=== PATIENT | female | born 1940 | race Caucasian/White ===

== ENCOUNTER 2016-09-16 10:01 | Emergency (ER) | payer MEDICARE ==
[~2016-09-16] VITALS: Ht 157.5 cm; Wt 104.0 kg
[~2016-09-16 10:01] MED LIST: CETI10 PO; COLA100C PO; GLUCTAB PO; LEVO.05 PO; LISI-357 PO; METO25 PO; POTA10IN2 PO; ZOLP1TAB32 PO
[2016-09-16 10:07] VITALS: BP 141/74; PULSE 68; RESP 16; TEMP 98.6; O2SAT 96
[2016-09-16 10:35] VITALS: O2SAT 97
[2016-09-16] MEDS ORDERED: OMEP20TA PO (10:41)
[2016-09-16] MEDS ORDERED: CELE1CAP8 PO (10:41)
[2016-09-16] MEDS ORDERED: OCUVCAP PO (10:41)
[2016-09-16] MEDS ORDERED: LEVO125T4 PO (10:41)
[2016-09-16] MEDS ORDERED: ATOR10TA15 PO (10:41)
[2016-09-16] MEDS ORDERED: LISI20TA PO (10:41)
[2016-09-16] MEDS ORDERED: STOO100C PO (10:41)
[2016-09-16] MEDS ORDERED: METF500T PO (10:41)
[2016-09-16] MEDS ORDERED: METO25TA3 PO (10:41)
[2016-09-16] MEDS ORDERED: SODIUM CHLOR 0.9% 1000 ML INJ 1,000 ML IV SCH (10:44)
[2016-09-16] MEDS ORDERED: SODIUM CHLORIDE 0.9% FLUSH 10 ML FLUSH IV FLUSH PRN (10:45)
[2016-09-16] MEDS ORDERED: ACETAMINOPHEN 325 MG TAB PO ONE (10:45)
--- NOTE | 2016-09-16 10:48 | PD ---
HPI Chief Complaint: Pain: Acute or Chronic Time Seen by Provider: 10:37 Travel History International Travel<30 days: No Contact w/Intl Traveler<30days: No Traveled to known affect area: No History of Present Illness HPI 76-year-old female with history of diabetes, hypertension, hyperlipidemia, here for evaluation of lower back and left flank pain. The patient reports having these symptoms for about 2 weeks. Pain is sharp, intermittent, worse with movements. Last week she had a couple episodes of nausea and vomiting. No diarrhea. No fevers or chills. No rash. She denies trauma. No paresthesias or motor deficits. She has had some urinary stress incontinence which she has had for years. No urinary retention or bowel retention or incontinence. States that she was seen at an urgent care facility yesterday where she was diagnosed with a UTI/kidney infection and was given a dose of Rocephin IM, however was advised to present to the emergency department for further evaluation. PFSH Past Medical History Arthritis: Yes (Knee) Autoimmune Disease: No Blood Disorders: No Anxiety: No Depression: No Heart Rhythm Problems: No Cancer: No Cardiovascular Problems: Yes High Cholesterol: Yes Chemotherapy: No Chest Pain: No Congestive Heart Failure: No Cirrhosis: No Diabetes: Yes Patient Takes Glucophage: Yes Diminished Hearing: No Endocrine: Yes Gastrointestinal Disorders: Yes GERD: Yes Glaucoma: No Genitourinary: No Hepatitis: No Hiatal Hernia: Yes Heparin Induced Thrombocytopen: No Hypertension: Yes Immune Disorder: No Musculoskeletal: Yes (LEFT KNEE REPLACEMENT) Neurologic: Yes (STATES BRAIN BLEED FROM FALL 2013) Psychiatric: No Reproductive: No Respiratory: No Myocardial Infarction: No Radiation Therapy: No Sickle Cell Disease: No Thyroid Disease: Yes Ulcer: No ?: Not Menopausal: Yes Past Surgical History Abdominal Surgery: Yes AICD: No Appendectomy: Yes Arteriovenous Shunt: No Cardiac Surgery: No Cholecystectomy: Yes Ear Surgery: No Endocrine Surgery: No Eye Surgery: No Genitourinary Surgery: No Gynecologic Surgery: Yes (hysterectomy 25 years ago) Hysterectomy: Yes Insulin Pump: No Joint Replacement: Yes (LEFT KNEE) Neurologic Surgery: No Oral Surgery: No Pacemaker: No Thoracic Surgery: No Social History Alcohol Use: No Tobacco Use: No Substance Use: No Allergies-Medications (Allergen,Severity, Reaction): Coded Allergies: Bee Sting (Verified Allergy, Severe, ANAPHYLAXIS, 09/16/16) Reported Meds & Prescriptions Reported Meds & Active Scripts Active Reported Stool Softener (Docusate Sodium) 100 Mg Cap 1 Cap PO DAILY Ocuvite Lutein (Multiple Vitamins W/ Minerals) 1 Cap Cap 1 Cap PO DAILY Omeprazole 20 Mg Tab 20 Mg PO DAILY Metformin (Metformin HCl) 500 Mg Tab 500 Mg PO BIDPC With meals Metoprolol Tartrate 25 Mg Tab 25 Mg PO DAILY Lisinopril-Hctz 20-12.5 Mg Tab 1 Tab PO DAILY Levothyroxine (Levothyroxine Sodium) 125 Mcg Tab 125 Mcg PO DAILY Celecoxib 200 Mg Cap 200 Mg PO BID Atorvastatin (Atorvastatin Calcium) 10 Mg Tab 10 Mg PO DAILY Review of Systems Except as stated in HPI: all other systems reviewed are Neg Physical Exam Narrative GENERAL: Well-developed, well-nourished, comfortable, no acute distress. SKIN: Warm and dry. No rash. HEAD: Atraumatic. Normocephalic. EYES: Pupils equal and round. No scleral icterus. No injection or drainage. ENT: Mucous membranes pink and moist. NECK: Trachea midline. No JVD. CARDIOVASCULAR: Regular rate and rhythm. Distal pulses brisk and equal bilaterally. RESPIRATORY: No accessory muscle use. Clear to auscultation. Breath sounds equal bilaterally. GASTROINTESTINAL: Abdomen soft, non-tender, nondistended. MUSCULOSKELETAL: No obvious deformities. No clubbing. No cyanosis. No edema. Mild midline upper lumbar spine tenderness without step-off. Mild left CVA tenderness. No right CVA tenderness. NEUROLOGICAL: Awake and alert. No obvious cranial nerve deficits. Motor grossly within normal limits. Normal speech. No saddle anesthesia. Great toe extension present bilaterally. Normal motor/sensation to bilateral upper and lower extremities. PSYCHIATRIC: Appropriate mood and affect; insight and judgment normal. Data Data Last Documented VS Vital Signs Date Time Temp Pulse Resp B/P Pulse Ox O2 Delivery O2 Flow Rate FiO2 09/16/16 10:35 97 09/16/16 10:34 72 18 09/16/16 10:07 98.6 141/74 Orders Urinalysis - C+S If Indicated (09/16/16 10:09) Complete Blood Count With Diff (09/16/16 10:44) Comprehensive Metabolic Panel (09/16/16 10:44) Lipase (09/16/16 10:44) Prothrombin Time / Inr (Pt) (09/16/16 10:44) Act Partial Throm Time (Ptt) (09/16/16 10:44) Ct Abd/Pel W Iv Contrast(Rout) (09/16/16 10:44) Iv Access Insert/Monitor (09/16/16 10:44) Ecg Monitoring (09/16/16 10:44) Oximetry (09/16/16 10:44) Sodium Chlor 0.9% 1000 Ml Inj (Ns 1000 M (09/16/16 10:44) Sodium Chloride 0.9% Flush (Ns Flush) (09/16/16 10:45) Cath For Specimen (09/16/16 10:44) Acetaminophen (Tylenol) (09/16/16 10:45) Ct Lumb Spine W/O Contrast (09/16/16 ) Urine Culture (09/16/16 10:59) Ceftriaxone Inj (Rocephin Inj) (09/16/16 11:45) Iohexol 350 Inj (Omnipaque 350 Inj) (09/16/16 12:34) Labs Laboratory Tests Test 09/16/16 09/16/16 10:52 10:59 White Blood Count 5.8 TH/MM3 Red Blood Count 4.98 MIL/MM3 Hemoglobin 14.0 GM/DL Hematocrit 42.3 % Mean Corpuscular Volume 85.1 FL Mean Corpuscular Hemoglobin 28.2 PG Mean Corpuscular Hemoglobin 33.2 % Concent Red Cell Distribution Width 12.5 % Platelet Count 231 TH/MM3 Mean Platelet Volume 7.9 FL Neutrophils (%) (Auto) 70.1 % Lymphocytes (%) (Auto) 26.0 % Monocytes (%) (Auto) 3.1 % Eosinophils (%) (Auto) 0.0 % Basophils (%) (Auto) 0.8 % Neutrophils # (Auto) 4.1 TH/MM3 Lymphocytes # (Auto) 1.5 TH/MM3 Monocytes # (Auto) 0.2 TH/MM3 Eosinophils # (Auto) 0.0 TH/MM3 Basophils # (Auto) 0.0 TH/MM3 CBC Comment DIFF FINAL Differential Comment Prothrombin Time 10.9 SEC Prothromb Time International 1.0 RATIO Ratio Activated Partial 26.8 SEC Thromboplast Time Sodium Level 141 MEQ/L Potassium Level 3.5 MEQ/L Chloride Level 103 MEQ/L Carbon Dioxide Level 30.1 MEQ/L Anion Gap 8 MEQ/L Blood Urea Nitrogen 9 MG/DL Creatinine 0.67 MG/DL Estimat Glomerular Filtration 85 ML/MIN Rate Random Glucose 133 MG/DL Calcium Level 9.6 MG/DL Total Bilirubin 0.5 MG/DL Aspartate Amino Transf 35 U/L (AST/SGOT) Alanine Aminotransferase 23 U/L (ALT/SGPT) Alkaline Phosphatase 67 U/L Total Protein 7.1 GM/DL Albumin 3.7 GM/DL Lipase 102 U/L Urine Collection Type CLEAN CATCH Urine Color YELLOW Urine Turbidity SLIGHTY CLOUDY Urine pH 5.5 Urine Specific [place] 1.015 Urine Protein NEG mg/dL Urine Glucose (UA) NEG mg/dL Urine Ketones NEG mg/dL Urine Occult Blood NEG Urine Nitrite NEG Urine Bilirubin NEG Urine Leukocyte Esterase SMALL Urine RBC 0-3 /hpf Urine WBC 25-49 /hpf Urine WBC Clumps MOD Microscopic Urinalysis Comment CULTURE INDICATED MDM Medical Decision Making Medical Screen Exam Complete: Yes Emergency Medical Condition: Yes Differential Diagnosis Pyelonephritis, nephrolithiasis, ureterolithiasis, UTI, musculoskeletal pain, vertebral fracture, dissection, AAA Narrative Course Vital signs show heart rate 68, blood pressure 141/74, pulse ox 96% on room air , oral temp of 98.6F. CBC is unremarkable. CMP is unremarkable. Lipase is 102. UA shows small leukocyte esterase, 25-49 wbc's, moderate WBC clumps. Patient was given a dose of IV Rocephin. CT abdomen pelvis: CONCLUSION: 1. Linear atelectatic changes or scarring in the right lower lobe and left lingula. 2. Stable, 3.4 cm probable myolipoma in the left adrenal gland. 3. Granulomatous type calcifications in the spleen with a benign-appearing 2 cm cyst in the upper pole of the same. 4. Patient is status post cholecystectomy and hysterectomy. 5. Bilateral, 2.5 cm inguinal hernias which only contains fat. 6. Otherwise, no acute intraperitoneal or pelvic process to explain current clinical symptoms. CT lumbar spine: CONCLUSION: No acute bony process in the lumbar spine Patient and the patient's were made aware of all findings. She is resting comfortably. She was given a copy of her CT abdomen and pelvis report. She is stable for discharge home with oral antibiotics and outpatient follow- up with her primary care physician this week. She was informed on when to return to the emergency department. She verbalizes understanding and agreement with plan. Diagnosis Primary Impression: Pyelonephritis Referrals: Primary Care Physician 3 days Additional Instructions: Follow-up with your primary care physician this week. Return to the emergency department for worsening symptoms or any other concerns. Scripts Tramadol 50 Mg Tab50 Mg PO Q6H PRN (PAIN) #12 TAB Ref 0 Prov:Juan Willson MD 09/16/16 Ciprofloxacin (Cipro)500 Mg [id number] Mg PO BID 7 Days Ref 0 Prov:Juan Willson MD 09/16/16 Disposition: 01 DISCHARGE HOME Condition: Stable Juan Willson MD Sep 16, 2016 10:48
[2016-09-16 11:08] LABS: AUTOMATED NEUTROPHIL # 4.1 TH/MM3 (1.8-7.7); BASOPHIL % 0.8 % (0.0-2.0); HEMATOCRIT 42.3 % (35.0-46.0); HEMO FLAGS DIFF FINAL; LYMPHOCYTE # 1.5 TH/MM3 (1.0-4.8); MEAN CELL VOLUME 85.1 FL (80.0-100.0); MEAN CORPUSCULAR HEMOGLOBIN 28.2 PG (27.0-34.0); MEAN CORPUSCULAR HGB CONC 33.2 % (32.0-36.0); MONO % 3.1 % (0.0-8.0); NEUT % 70.1 % (16.0-70.0); PLATELET COUNT 231 TH/MM3 (150-450); RED BLOOD COUNT 4.98 MIL/MM3 (4.00-5.30); RED CELL DISTRIBUTION WIDTH 12.5 % (11.6-17.2); WHITE BLOOD COUNT 5.8 TH/MM3 (4.0-11.0)
[2016-09-16 11:08] LABS: BLOOD, URINE NEG (NEG); GLUCOSE,URINE NEG (NEG); KETONE, URINE NEG (NEG); NITRITE,URINE NEG (NEG); PH, URINE 5.5 (5.0-8.5)
[2016-09-16 11:12] LABS: METHOD OF COLLECTION CLEAN CATCH; URINE COLOR YELLOW (YELLW/STRAW)
[2016-09-16 11:13] LABS: COMMENT (UR) CULTURE INDICATED; CULTURE IF INDICATED CULTURE INDICATED; RBC, URINE 0-3 /hpf (0-3)
[2016-09-16 11:21] LABS: APTT (PATIENT) 26.8 SEC (24.3-30.1); PROTHROMBIN TIME - PATIENT 10.9 SEC (9.8-11.6)
[2016-09-16] MEDS ORDERED: cefTRIAXone INJ 1,000 MG in SODIUM CHLORIDE 0.9% INJ 100 ML IV ONE (11:45)
[2016-09-16 11:57] LABS: ALT (GPT) 23 U/L (10-53); ANION GAP 8 MEQ/L (5-15); AST (GOT) 35 U/L (15-37); BICARBONATE 30.1 MEQ/L (21.0-32.0); BLOOD UREA NITROGEN 9 MG/DL (7-18); CHLORIDE 103 MEQ/L (98-107); GLOMERULAR FILTRATION RATE 85 ML/MIN (>89); POTASSIUM 3.5 MEQ/L (3.5-5.1); SODIUM (NA) 141 MEQ/L (136-145)
[2016-09-16 11:59] LABS: ALKALINE PHOSPHATASE 67 U/L (45-117); TOTAL BILIRUBIN ADULT 0.5 MG/DL (0.2-1.0)
[2016-09-16] MEDS ORDERED: IOHEXOL 350 MG/ML 10 ML VIAL (for RAD DIAG) IV ONE (12:34)
--- NOTE | 2016-09-16 13:01 | RADHPO ---
EXAM DATE/TIME: 09/16/2016 12:08 [facility] COMPARISON: No previous studies available for comparison. INDICATIONS : Low back pain. RADIATION DOSE: ; Reconstructed from previous dataset MEDICAL HISTORY : Diabetes mellitus type 2. Hernia, hiatal. Hypertension. SURGICAL HISTORY : Appendectomy. Cholecystectomy.Hysterectomy. ENCOUNTER: Initial ACUITY: 2 weeks PAIN SCALE: 8/10 LOCATION: Lumbar spine. TECHNIQUE: Volumetric scanning of the lumbar spine was performed. Multiplanar reconstructions in the sagittal, coronal and oblique axial planes were performed. Using automated exposure control and adjustment of the mA and/or kV according to patient size, radiation dose was kept as low as reasonably achievable t o obtain optimal diagnostic quality images. FINDINGS: The lumbar spine alignment is satisfactory. There is no evidence of fracture or destructive change. N o bony canal or foraminal stenosis is identified. There is mild degenerative change present with disc space narrowing most conspicuous at L5-S1. Broad mild undulating dorsal disc protrusions are identif ied most significantly at L1-2, L3-4 and L4-5 levels. There is no evidence of paraspinal hematoma. 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 CONCLUSION: No acute bony process in the lumbar spine Wesley Tobin MD on September 16, 2016 at 12:52 Board Certified Radiologist. This report was verified electronically.
--- NOTE | 2016-09-16 13:03 | RADHPO ---
EXAM DATE/TIME: 09/16/2016 12:08 [facility] COMPARISON: CT ABDOMEN & PELVIS W CONTRAST, August 27, 2013, 22:38. INDICATIONS : Left flank and low back pain. IV CONTRAST: 80 cc Omnipaque 350 (iohexol) IV ORAL CONTRAST: No oral contrast ingested. RADIATION DOSE: 22.20 CTDIvol (mGy) MEDICAL HISTORY : Diabetes mellitus type 2. Gastroesophageal reflux disease. Hernia, hiatal.Hypertension. SURGICAL HISTORY : Appendectomy. Cholecystectomy.Hysterectomy. ENCOUNTER: Initial ACUITY: 2 weeks PAIN SCALE: 4/10 LOCATION: Left flank TECHNIQUE: Volumetric scanning of the abdomen and pelvis was performed. Using automated exposure control and ad justment of the mA and/or kV according to patient size, radiation dose was kept as low as reasonably achievable to obtain optimal diagnostic quality images. FINDINGS: LOWER LUNGS: Linear atelectatic changes/scarring in the superior segment of the right lower lobe and left lingula LIVER: Homogeneous density without lesion. There is no dilation of the biliary tree. Patient is status post cholecystectomy. SPLEEN: Punctate granulomatous type calcifications. 2 cm benign-appearing cyst in the upper pole of the spl een. PANCREAS: Atrophic changes with fatty replacement. KIDNEYS: Normal in size and shape. There is no mass, stone or hydronephrosis. Bilateral renal cortical cysts ADRENAL GLANDS: Stable, 3.4 cm fatty lesion in the left adrenal is characteristic of a myelolipoma. VASCULAR: There is no aortic aneurysm. BOWEL/MESENTERY: The stomach, small bowel, and colon demonstrate no acute abnormality. There is no free intraperitone al air or fluid. ABDOMINAL WALL: Within normal limits. RETROPERITONEUM: There is no lymphadenopathy. BLADDER: No wall thickening or mass. REPRODUCTIVE: Patient is status post hysterectomy. INGUINAL: Bilateral, 2.5 cm inguinal hernias which only contain fat. MUSCULOSKELETAL: Within normal limits for patient age. CONCLUSION: 1. Linear atelectatic changes or scarring in the right lower lobe and left lingula. 2. Stable, 3.4 cm probable myolipoma in the left adrenal gland. 3. Granulomatous type calcifications in the spleen with a benign-appearing 2 cm cyst in the upper yaniv e of the same. 4. Patient is status post cholecystectomy and hysterectomy. 5. Bilateral, 2.5 cm inguinal hernias which only contains fat. 6. Otherwise, no acute intraperitoneal or pelvic process to explain current clinical symptoms. Pavan Garza MD on September 16, 2016 at 12:45 Board Certified Radiologist. This report was verified electronically.
[2016-09-16] MEDS ORDERED: CIPR-9 PO (13:21)
[2016-09-16] MEDS ORDERED: TRAM50TA PO (13:21)
[2016-09-16 14:15] VITALS: BP 135/70
== END 2016-09-16 14:30 | disposition home or self-care (01) ==
LOC: PHED 10:01
DX: N12 Tubulo-interstitial nephritis, not specified as acute or chronic (principal); I10 Essential (primary) hypertension; E78.00 Pure hypercholesterolemia, unspecified; E11.9 Type 2 diabetes mellitus without complications; Z79.4 Long term (current) use of insulin; Z96.652 Presence of left artificial knee joint
CPT/HCPCS: 72131; 74177; 80053; 81001; 83690; 85025; 85610; 85730; 87086; 96365; 96366; 99284; J0696; J7030; P9612; Q9967

== ENCOUNTER 2016-12-23 17:50 | Observation (INO) | payer MEDICARE ==
[~2016-12-23] VITALS: Ht 172.7 cm; Wt 104.8 kg
[~2016-12-23 17:50] MED LIST changes: +ATOR10TA15 PO; +CELE1CAP8 PO; -CETI10 PO; +CIPR-9 PO; -COLA100C PO; -GLUCTAB PO; -LEVO.05 PO; +LEVO125T4 PO; -LISI-357 PO; +LISI20TA PO; +METF500T PO; -METO25 PO; +METO25TA3 PO; +OCUVCAP PO; +OMEP20TA PO; -POTA10IN2 PO; +STOO100C PO; +TRAM50TA PO; -ZOLP1TAB32 PO
[2016-12-23 18:11] VITALS: BP 163/67; PULSE 75; RESP 16; TEMP 98.5; O2SAT 97
--- NOTE | 2016-12-23 18:19 | PD ---
HPI Chief Complaint: Musculoskeletal Complaint Time Seen by Provider: 18:13 Travel History International Travel<30 days: No Contact w/Intl Traveler<30days: No Traveled to known affect area: No History of Present Illness HPI 76-year-old female presents to the emergency room for evaluation of left elbow, left wrist, left ankle, and left knee pain after falling just prior to arrival. Patient was stepping into her CV when her leg gave out and she fell to the left. She denies hitting her loss of consciousness. States her son and neighbor helped her up and into her walker before helping her into her recliner. Another nurse neighbor evaluated her wound and told her she would probably need stitches so she needs to have it evaluated. She called 911 and the ambulance brought her to the hospital. Most of her pain is in her left lateral ankle. It is 7/10, constant. She has not walked on it since injuring it. She has not taken anything for pain. Denies paresthesias. Left wrist pain is localized to the radial side without radiation. Last tetanus was less than 5 years ago. PFSH Past Medical History Arthritis: Yes (Knee) Autoimmune Disease: No Blood Disorders: No Anxiety: No Depression: No Heart Rhythm Problems: No Cancer: No Cardiovascular Problems: Yes High Cholesterol: Yes Chemotherapy: No Chest Pain: No Congestive Heart Failure: No Cirrhosis: No Diabetes: Yes Diminished Hearing: No Endocrine: Yes Gastrointestinal Disorders: Yes GERD: Yes Glaucoma: No Genitourinary: No Hepatitis: No Hiatal Hernia: Yes Heparin Induced Thrombocytopen: No Hypertension: Yes Immune Disorder: No Musculoskeletal: Yes (LEFT KNEE REPLACEMENT) Neurologic: Yes (STATES BRAIN BLEED FROM FALL 2013) Psychiatric: No Reproductive: No Respiratory: No Myocardial Infarction: No Radiation Therapy: No Sickle Cell Disease: No Thyroid Disease: Yes Ulcer: No ?: Not Menopausal: Yes Past Surgical History Abdominal Surgery: Yes AICD: No Appendectomy: Yes Arteriovenous Shunt: No Cardiac Surgery: No Cholecystectomy: Yes Ear Surgery: No Endocrine Surgery: No Eye Surgery: No Genitourinary Surgery: No Gynecologic Surgery: Yes (hysterectomy 25 years ago) Hysterectomy: Yes Insulin Pump: No Joint Replacement: Yes (LEFT KNEE) Neurologic Surgery: No Oral Surgery: No Pacemaker: No Thoracic Surgery: No Social History Alcohol Use: No Tobacco Use: No Substance Use: No Allergies-Medications (Allergen,Severity, Reaction): Coded Allergies: Bee Sting (Verified Allergy, Severe, ANAPHYLAXIS, 12/23/16) Reported Meds & Prescriptions Reported Meds & Active Scripts Active Reported Stool Softener (Docusate Sodium) 100 Mg Cap 1 Cap PO DAILY Ocuvite Lutein (Multiple Vitamins W/ Minerals) 1 Cap Cap 1 Cap PO DAILY Omeprazole 20 Mg Tab 20 Mg PO DAILY Metformin (Metformin HCl) 500 Mg Tab 500 Mg PO BIDPC With meals Metoprolol Tartrate 25 Mg Tab 25 Mg PO DAILY Lisinopril-Hctz 20-12.5 Mg Tab 1 Tab PO DAILY Levothyroxine (Levothyroxine Sodium) 125 Mcg Tab 125 Mcg PO DAILY Celecoxib 200 Mg Cap 200 Mg PO BID Atorvastatin (Atorvastatin Calcium) 10 Mg Tab 10 Mg PO DAILY Review of Systems Except as stated in HPI: all other systems reviewed are Neg Physical Exam Narrative GENERAL: Well-developed, well-nourished female in no acute distress. Afebrile. SKIN: Warm and dry. Forcing meter diameter skin tear in the left lateral elbow. There is a 1.5 cm laceration to the left elbow. HEAD: Atraumatic. Normocephalic. No sosa sign or raccoon eyes. EYES: PERRL, EOMI, no discharge or injection. No scleral icterus. NECK: Trachea midline. No JVD. No midline tenderness. Full range of motion. CARDIOVASCULAR: Regular rate and rhythm. No murmur appreciated. RESPIRATORY: No accessory muscle use. Clear to auscultation. Breath sounds equal bilaterally. No crackles, rales, wheezes, or rhonchi. BACK: No CVA tenderness. No rash. No point tenderness on palpation of the spine. EXTREMITY: Left ankle is tender to palpation especially over the lateral malleolus. No significant edema. No erythema or ecchymosis. 2+ dorsalis pedis pulse. Full range of motion of the knee and foot. Limited range of motion of the ankle secondary to pain. Full range of motion in all joints. Left wrist is tender to palpation over the dorsal, radial side. 2+ radial pulse. Full range motion of the hand and elbow. Limited range of motion of the wrist secondary to pain. No significant edema. Data Data Last Documented VS Vital Signs Date Time Temp Pulse Resp B/P Pulse Ox O2 Delivery O2 Flow Rate FiO2 12/23/16 18:11 98.5 75 16 163/67 97 Orders Wrist, Complete (Kuc1nfu) (12/23/16 ) Ankle, Complete (Byn2hoc) (12/23/16 ) Tibia/Fibula (Ap/Lat) (12/23/16 ) Forearm (2vws) (12/23/16 ) Lidocai-Epi 1%-1:100,000 Inj (Xylocaine- (12/23/16 18:26) Wound Care (12/23/16 18:40) Splint Or Brace Apply/Monitor (12/23/16 20:08) Acetamin-Hydrocod 325-5 Mg ([place] 5-325 (12/23/16 20:15) Cephalexin (Keflex) (12/23/16 20:15) Fiberglass Short Leg Splint Ad (12/23/16 ) Fiberglass Sugartong Sp Ad Sl (12/23/16 ) Place In Observation (12/23/16 ) Vital Signs (Adult) Q4H (12/23/16 21:43) Activity Oob With Assistance (12/23/16 21:43) Slubber Tender / Telemetry .CONTINUOUS (12/23/16 21:43) Diet Heart Healthy (12/24/16 Breakfast) Sodium Chloride 0.9% Flush (Ns Flush) (12/23/16 21:45) Sodium Chloride 0.9% Flush (Ns Flush) (12/24/16 09:00) Basic Metabolic Panel (Bmp) (12/24/16 06:00) Complete Blood Count With Diff (12/24/16 06:00) Pt Request For Service (12/23/16 21:43) Case Management Consult (12/23/16 21:43) Naloxone Inj (Narcan Inj) (12/23/16 21:45) Acetamin-Hydrocod 325-5 Mg ([place] 5-325 (12/23/16 21:45) Consult Orthopedic (12/23/16 ) Admit Order (Ed Use Only) (12/23/16 21:43) MDM Medical Decision Making Medical Screen Exam Complete: Yes Emergency Medical Condition: Yes Medical Record Reviewed: Yes Differential Diagnosis Fracture, skin tear, laceration, abrasion, contusion, strain, sprain Narrative Course 76-year-old female presents to the emergency room for evaluation of possible left ankle pain, left elbow pain, and left wrist pain after falling earlier today. Patient denies hitting her head or loss of consciousness. Her worst pain is in her ankle. Left lower extremity is neurovascularly intact with 2+ dorsalis pedis pulse. There is extreme tenderness to palpation of the left lateral ankle. Left upper extremity is neurovascularly intact with 2+ radial pulse. There is a 2 cm laceration over the elbow with swelling of the elbow. There is a large skin tear adjacent to the laceration. Skin tear was approximated. Laceration was repaired, see procedure note for details. Patient was given Keflex for the skin tear and deep elbow laceration. X-rays of the left wrist, elbow, and knee are negative. X-ray of the ankle shows a nondisplaced comminuted fracture of the distal fibula. I spoke to my attending physician, Dr. Willson, who agrees this is nonsurgical. Patient was placed in a Taylor splint. She lives alone and is supposed to remain non-weight bearing. Given her home situation, she has not safe for discharge. Patient needs to be admitted for physical therapy consult and possible outpatient rehabilitation. Procedures Procedure Narrative LACERATION LOCATION: Left elbow over the olecranon process LENGTH: 2 cm NUMBER OF STITCHES/BOBBY: 4 simple interrupted REPAIR: The area of the laceration was prepped with Betadine and sterilely draped. The laceration was infiltrated with 1% lidocaine with epinephrine. The wound was copiously irrigated and explored without evidence of foreign body , tendon injury or neurovascular injury. The wound was closed using 4-0 Prolene. This was a single layer repair. A sterile dressing was applied. The patient was advised to keep the dressing clean and dry. Patient tolerated the procedure well. Physician Communication Physician Communication I spoke to Dr. Sutton agrees to admit this patient to her service. Diagnosis Primary Impression: Closed left fibular fracture Qualified Code: S82.822A - Closed torus fracture of distal end of left fibula , initial encounter Additional Impressions: Laceration of left elbow Qualified Code: S51.012A - Laceration of left elbow, initial encounter Skin tear of elbow without complication Qualified Code: S51.012A - Skin tear of elbow without complication, left, initial encounter Patient Instructions: General Instructions Condition: Stable Michelle Oseguera Dec 23, 2016 18:19
[2016-12-23] MEDS ORDERED: LIDOCAINE 1%/EPINEPHrine 1:100,000 SOLN 30 ML VIAL ONE (18:26)
--- NOTE | 2016-12-23 19:30 | RADRPT ---
EXAM DATE/TIME: 12/23/2016 18:21 [facility] COMPARISON: No previous studies available for comparison. INDICATIONS : Patient said she slipped and fell on Tuesday.. Patient complains of pain. MEDICAL HISTORY : Diabetes mellitus type 2. Gastroesophageal reflux disease. Hernia, hiatal. Hypertension. SURGICAL HISTORY : Appendectomy. Cholecystectomy. Hysterectomy. ENCOUNTER: Initial ACUITY: 1 day PAIN SCORE: 4/10 LOCATION: Left Wrist. FINDINGS: AP, lateral and oblique views of the left wrist were obtained and demonstrate osteoarthritic change g reatest involving the first metacarpal carpal joint and trapezium scaphoid joint. There is narrowing and sclerosis of the radiocarpal joint and there is chronic appearing deformity of the scaphoid. The distal radius and ulna are intact. There is mild soft tissue prominence. There is mild osteopenia. CONCLUSION: 1. No acute fracture or malalignment. 2. Osteopenia and moderate to severe osteoarthritic change. Forrest Young MD on December 23, 2016 at 19:26 Board Certified Radiologist. This report was verified electronically.
--- NOTE | 2016-12-23 19:31 | RADRPT ---
EXAM DATE/TIME: 12/23/2016 18:21 [facility] COMPARISON: WRIST LEFT COMPLETE ([id number]), December 23, 2016, 18:21. INDICATIONS : Patient said she slipped and fell on Tuesday. MEDICAL HISTORY : Diabetes mellitus type 2. Gastroesophageal reflux disease. Hernia, hiatal.Hypertension. SURGICAL HISTORY : Appendectomy. Cholecystectomy.Hysterectomy. ENCOUNTER: Initial ACUITY: 2 days PAIN SCORE: 4/10 LOCATION: Left Forearm FINDINGS: Two view examination of the left forearm demonstrates no evidence of fracture or dislocation. Bony m ineralization is normal. There is apparent soft tissue swelling over the proximal forearm with appare nt overlying bandages. Degenerative changes are again noted in left wrist. CONCLUSION: 1. Soft tissue swelling with no acute fracture or malalignment. Forrest Young MD on December 23, 2016 at 19:28 Board Certified Radiologist. This report was verified electronically.
--- NOTE | 2016-12-23 19:33 | RADRPT ---
EXAM DATE/TIME: 12/23/2016 18:42 [facility] COMPARISON: No previous studies available for comparison. INDICATIONS : Left ankle pain. Patient said she slipped and fell on Tuesday. MEDICAL HISTORY : Diabetes mellitus type 2. Gastroesophageal reflux disease. Hernia, hiatal.Hypertension. SURGICAL HISTORY : Appendectomy. Cholecystectomy.Hysterectomy. ENCOUNTER: Initial ACUITY: 2 days PAIN SCORE: 7/10 LOCATION: Left Ankle FINDINGS: AP, lateral and oblique views of left ankle were obtained and demonstrate mildly comminuted nondispla kelin oblique fracture involving the distal fibula beginning approximately 4 cm above the ankle mortise . There is mild osteopenia and overlying soft tissue swelling. The ankle mortise is intact with mild degenerative change. Small spur off the inferior calcaneus. CONCLUSION: 1. Mildly comminuted nondisplaced fracture of the distal fibula. 2. Mild degenerative change and osteopenia. Forrest Young MD on December 23, 2016 at 19:29 Board Certified Radiologist. This report was verified electronically.
--- NOTE | 2016-12-23 19:34 | RADRPT ---
EXAM DATE/TIME: 12/23/2016 18:43 [facility] COMPARISON: ANKLE LEFT COMPLETE ([id number]), December 23, 2016, 18:42. INDICATIONS : Patient said she slipped and fell on Tuesday. MEDICAL HISTORY : Diabetes mellitus type 2. Gastroesophageal reflux disease. Hernia, hiatal.Hypertension. SURGICAL HISTORY : Appendectomy. Cholecystectomy.Hysterectomy. ENCOUNTER: Initial ACUITY: 2 days PAIN SCORE: 6/10 LOCATION: Left Ankle FINDINGS: Two view examination of the left tibia and demonstrates the nondisplaced distal fibular fracture. No additional fracture or dislocation is identified. There is mild osteopenia. The soft tissue structure s are intact. The patient is status post left knee arthroplasty. The arthroplasty components appear i ntact. Soft tissue swelling is again noted over the distal leg. CONCLUSION: 1. No additional fractures identified. 2. The distal fibular fracture is again visualized. Forrest Young MD on December 23, 2016 at 19:30 Board Certified Radiologist. This report was verified electronically.
[2016-12-23] MEDS ORDERED: CEPHALEXIN MONOHYDRATE 500 MG CAP PO ONE (20:15)
[2016-12-23] MEDS ORDERED: ACETAMINOPHEN/HYDROcodone 325 MG/5 MG TAB PO ONE (20:15)
[2016-12-23] MEDS ORDERED: SODIUM CHLORIDE 0.9% FLUSH 10 ML FLUSH IV FLUSH PRN (21:45)
[2016-12-23] MEDS ORDERED: NALOXONE HCL 0.4 MG/ML AMP IV PRN (21:45)
[2016-12-23 22:06] VITALS: BP 133/65; PULSE 89; RESP 18; O2SAT 95
[2016-12-23 22:54] VITALS: BP 138/77; PULSE 84; RESP 18; TEMP 97.4; O2SAT 95
[2016-12-23] MEDS: ACETAMINOPHEN/HYDROcodone 325 MG/5 MG TAB PO PRN (23:33)
[2016-12-24 04:00] VITALS: BP 131/80; PULSE 77; RESP 18; TEMP 97.4; O2SAT 95
[2016-12-24 06:01] LABS: AUTOMATED NEUTROPHIL # 4.9 TH/MM3 (1.8-7.7); BASOPHIL % 0.7 % (0.0-2.0); EOSINOPHIL % 0.4 % (0.0-4.0); HEMATOCRIT 38.5 % (35.0-46.0); HEMO FLAGS DIFF FINAL; LYMPH % 19.3 % (9.0-44.0); LYMPHOCYTE # 1.3 TH/MM3 (1.0-4.8); MEAN CELL VOLUME 86.7 FL (80.0-100.0); MEAN CORPUSCULAR HEMOGLOBIN 29.2 PG (27.0-34.0); MEAN CORPUSCULAR HGB CONC 33.7 % (32.0-36.0); MONO % 5.4 % (0.0-8.0); NEUT % 74.2 % (16.0-70.0); PLATELET COUNT 204 TH/MM3 (150-450); RED BLOOD COUNT 4.44 MIL/MM3 (4.00-5.30); RED CELL DISTRIBUTION WIDTH 12.8 % (11.6-17.2); WHITE BLOOD COUNT 6.6 TH/MM3 (4.0-11.0)
[2016-12-24 06:10] LABS: POTASSIUM 3.5 MEQ/L (3.5-5.1)
[2016-12-24 06:13] LABS: BICARBONATE 32.3 MEQ/L (21.0-32.0)
[2016-12-24] MEDS: ACETAMINOPHEN/HYDROcodone 325 MG/5 MG TAB PO PRN (06:25)
[2016-12-24] MEDS ORDERED: DEXTROSE 50% IN WATER 50 ML VIAL(D50) IV PRN (07:45)
[2016-12-24] MEDS ORDERED: GLUCAGON 1 MG/ML VIAL OTHER PRN (07:45)
[2016-12-24] MEDS: SODIUM CHLORIDE 0.9% FLUSH 10 ML FLUSH IV FLUSH SCH ×2 (09:00→20:31)
[2016-12-24 09:46] VITALS: BP 115/69; PULSE 76; RESP 15; TEMP 98.7; O2SAT 95
--- NOTE | 2016-12-24 10:10 | HHI.HP ---
HPI Service [facility] Primary Care Physician Davey Chavez MD Admission Diagnosis rehabilitation consult, left distal fibular fracture Diagnoses: Chief Complaint: Fall, ankle fracture. Travel History International Travel<30 Days: No Contact w/Intl Traveler <30 Da: No Traveled to Known Affected Are: No History of Present Illness Ms. Aguilar is a pleasant 76-year-old female with a history of hypertension, diabetes mellitus who presented to the emergency department on after she fell and sustained injury to her left elbow left wrist and left ankle. At around 5 PM on 12/23/2016 patient was trying to get into her SUV when she fell because her right leg gave away. She denies any chest pain, shortness of breath, dizziness or lightheadedness prior to her fall. She did not hit her head. Patient denies any cough, fever or chills. No abdominal pain. Denies any tinges in bowel or bladder habits. ED workup indicated mildly comminuted nondisplaced fracture of the distal tibia. Patient was placed in a Jones splint. Elbow laceration was repaired with sutures. Patient was subsequently admitted to the hospital for observation. Review of Systems Except as stated in HPI: all other systems reviewed are Neg Past Family Social History Past Medical History Hypertension, diabetes mellitus, hypothyroidism, GERD Brain bleed from a fall in 2013 Past Surgical History Hysterectomy, left knee replacement Reported Medications Stool Softener (Docusate Sodium) 100 Mg Cap 1 Cap PO DAILY Ocuvite Lutein (Multiple Vitamins W/ Minerals) 1 Cap Cap 1 Cap PO DAILY Omeprazole 20 Mg Tab 20 Mg PO DAILY Metformin (Metformin HCl) 500 Mg Tab 500 Mg PO BIDPC With meals Metoprolol Tartrate 25 Mg Tab 25 Mg PO DAILY Lisinopril-Hctz 20-12.5 Mg Tab 1 Tab PO DAILY Levothyroxine (Levothyroxine Sodium) 125 Mcg Tab 125 Mcg PO DAILY Celecoxib 200 Mg Cap 200 Mg PO BID Atorvastatin (Atorvastatin Calcium) 10 Mg Tab 10 Mg PO DAILY Allergies: Coded Allergies: Bee Sting (Verified Allergy, Severe, ANAPHYLAXIS, 12/23/16) Family History No family history of cancer, Alzheimer's or Parkinson's. Social History Patient denies using tobacco, alcohol, illicit drugs. Physical Exam Vital Signs Vital Signs Date Time Temp Pulse Resp B/P Pulse Ox O2 Delivery O2 Flow Rate FiO2 12/24/16 09:46 98.7 76 15 115/69 95 12/24/16 04:00 97.4 77 18 131/80 95 12/24/16 00:30 18 12/23/16 22:54 97.4 84 18 138/77 95 12/23/16 22:06 89 18 133/65 95 Room Air 12/23/16 18:11 98.5 75 16 163/67 97 Physical Exam GENERAL: This is a well-nourished, well-developed patient, in no apparent distress. SKIN: No rashes, ecchymoses or lesions. Warm and dry. HEAD: Atraumatic. Normocephalic. No temporal or scalp tenderness. EYES: Pupils equal round and reactive. No injection or drainage. ENT: Nose without bleeding, purulent drainage or septal hematoma. Airway patent. NECK: Trachea midline. No lymphadenopathy. Supple, nontender, no meningeal signs. CARDIOVASCULAR: Regular rate and rhythm without murmurs, gallops, or rubs. No JVD. RESPIRATORY: Clear to auscultation. Breath sounds equal bilaterally. No wheezes , rales, or rhonchi. GASTROINTESTINAL: Abdomen soft, non-tender, nondistended. No guarding. MUSCULOSKELETAL: Extremities without clubbing, cyanosis, or edema. Status post splint placement on the left lower extremity. Able to move all toes. NEUROLOGICAL: Awake and alert. Cranial nerves II through XII intact. No focal neurological deficits. Normal speech. Laboratory Laboratory Tests Test 12/24/16 05:00 White Blood Count 6.6 Red Blood Count 4.44 Hemoglobin 13.0 Hematocrit 38.5 Mean Corpuscular Volume 86.7 Mean Corpuscular Hemoglobin 29.2 Mean Corpuscular Hemoglobin 33.7 Concent Red Cell Distribution Width 12.8 Platelet Count 204 Mean Platelet Volume 7.8 Neutrophils (%) (Auto) 74.2 Lymphocytes (%) (Auto) 19.3 Monocytes (%) (Auto) 5.4 Eosinophils (%) (Auto) 0.4 Basophils (%) (Auto) 0.7 Neutrophils # (Auto) 4.9 Lymphocytes # (Auto) 1.3 Monocytes # (Auto) 0.4 Eosinophils # (Auto) 0.0 Basophils # (Auto) 0.0 CBC Comment DIFF FINAL Differential Comment Sodium Level 143 Potassium Level 3.5 Chloride Level 102 Carbon Dioxide Level 32.3 Anion Gap 9 Blood Urea Nitrogen 12 Creatinine 0.60 Estimat Glomerular Filtration 97 Rate Random Glucose 148 Calcium Level 9.2 Result Diagram: 12/24/16 0500 12/24/16 0500 Imaging Last Impressions Wrist X-Ray 12/23/16 0000 Signed Impressions: Service Date/Time: November 18:21 - CONCLUSION: 1. No acute fracture or malalignment. 2. Osteopenia and moderate to severe osteoarthritic change. Forrest Young MD Tibia/Fibula X-Ray 12/23/16 0000 Signed Impressions: Service Date/Time: , December 23, 2016 18:43 - CONCLUSION: 1. No additional fractures identified. 2. The distal fibular fracture is again visualized. Forrest Young MD Radius/Ulna X-Ray 12/23/16 0000 Signed Impressions: Service Date/Time: November 18:21 - CONCLUSION: 1. Soft tissue swelling with no acute fracture or malalignment. Forrest Young MD Ankle X-Ray 12/23/16 0000 Signed Impressions: Service Date/Time: November 18:42 - CONCLUSION: 1. Mildly comminuted nondisplaced fracture of the distal fibula. 2. Mild degenerative change and osteopenia. Forrest Young MD Assessment and Plan Problem List: (1) Closed left fibular fracture ICD Code: S82.402A Status: Acute (2) Laceration of left elbow ICD Code: S51.012A Status: Acute (3) Hypertension ICD Code: I10 Status: Chronic (4) Hypothyroidism ICD Code: E03.9 Status: Chronic Assessment and Plan Ms. Aguilar is a 76-year-old female with a history of hypertension, diabetes mellitus who presented to the emergency department after she sustained a mechanical fall. She injured her left elbow as well as a nondisplaced fracture of the left distal fibula. - Left distal fibular fracture - Status post splint placement in the ED. - Reviewed images by me. Shows distal fibular fracture on the left side. - Patient has been evaluated by PT recommends home health versus SNF. - Will observe patient today and control pain. Patient will follow-up with her outpatient orthopedic surgeon. - Discontinue [place] and start Percocet 7.5/325 mg for pain 5-10. - Bowel regimen when necessary. - Hypertension - continue lisinopril 20 mg daily, HCTZ 12.5 mg by mouth daily. Continue metoprolol 25 mg daily. - Hypothyroidism - continue levothyroxine 125 g daily. - Diabetes mellitus - we'll anticipate any further imaging studies. Continue home medication metformin 500 mg twice a day. - Continue sliding scale insulin. Full code. Lovenox. Discharge plan : Likely discharge in the morning home with home health. Problem Qualifiers (1) Closed left fibular fracture: Qualified Code: S82.822A - Closed torus fracture of distal end of left fibula, initial encounter (2) Laceration of left elbow: Qualified Code: S51.012A - Laceration of left elbow, initial encounter Martha Willingham DO Dec 24, 2016 10:10 am
[2016-12-24] MEDS: INSULIN ASPART SUPPLEMENTAL SCALE SQ SCH ×3 (11:00→20:33)
[2016-12-24] MEDS ORDERED: BISACODYL 10 MG SUPP RECTAL PRN (11:45)
[2016-12-24] MEDS ORDERED: LACTULOSE SYRUP 20 GM/30 ML CUP PO PRN (11:45)
[2016-12-24] MEDS ORDERED: MAGNESIUM HYDROXIDE SUSP 30 ML CUP PO PRN (11:45)
[2016-12-24] MEDS ORDERED: ZOLPIDEM TARTRATE 5 MG TAB PO PRN (11:45)
[2016-12-24] MEDS ORDERED: SENNOSIDES 8.6 MG TAB PO PRN (11:45)
[2016-12-24] MEDS ORDERED: NALOXONE HCL 0.4 MG/ML AMP IV PRN (11:45)
[2016-12-24] MEDS ORDERED: ACETAMINOPHEN 500 MG CPLT PO PRN (11:45)
[2016-12-24] MEDS: oxyCODONE/ACETAMINOPHEN 7.5 MG/325 MG TAB PO PRN ×2 (12:12→20:30)
[2016-12-24] MEDS ORDERED: COMMODE 3-IN-11 MIS (12:14)
--- NOTE | 2016-12-24 12:16 | HHI.FF ---
Face to Face Verification Diagnosis: (1) Laceration of left elbow (2) Closed left fibular fracture (3) Hypothyroidism (4) Hypertension Physical Therapy Order: Evaluate and Treat, Improve ambulation, Strength and gait training I have seen patient Lacy Aguilar on 12/24/16. My clinical findings support the need for the requested home health care services because: Ltd mobility - disease progression Deconditioned w/ increased weakness Limited ability to care for self Need for psychosocial assistance Impaired cognition/judgement High risk of falls Infection w/ risk of complications I certify that my clinical findings support that this patient is homebound because: Impaired cognitive ability/safety Unsteady gait/balance Unsafe to leave home unassisted Need for psychosocial assistance Unable to use public transportation Martha Willingham DO Dec 24, 2016 12:16 pm
[2016-12-24] MEDS ORDERED: ENOXAPARIN SODIUM 40 MG/0.4 ML SYRINGE SQ SCH (13:00)
[2016-12-24 14:24] VITALS: BP 142/78; PULSE 76; RESP 16; TEMP 98.9; O2SAT 95
[2016-12-24 17:37] VITALS: BP 145/78; PULSE 80; RESP 15; TEMP 97.8; O2SAT 96
--- NOTE | 2016-12-24 17:40 | PD.ORT.PN ---
Subjective Subjective Remarks Lacy is a 76-year-old female who fell when trying to get into her [place]. She has had right leg pain and weakness that is chronic. She said her right leg gave out and she fell she had immediate pain to her left ankle. She is brought to the emergency room and was diagnosed by x-ray with a minimally displaced left distal fibula fracture. She was splinted and due to difficulty ambulating was admitted and consulted orthopedics. She denies any other injuries, she did not hit her head and did not lose consciousness Objective Vitals Vital Signs Date Time Temp Pulse Resp B/P Pulse Ox O2 Delivery O2 Flow Rate FiO2 12/24/16 14:24 98.9 76 16 142/78 95 12/24/16 09:46 98.7 76 15 115/69 95 12/24/16 04:00 97.4 77 18 131/80 95 12/24/16 00:30 18 12/23/16 22:54 97.4 84 18 138/77 95 12/23/16 22:06 89 18 133/65 95 Room Air 12/23/16 18:11 98.5 75 16 163/67 97 I/O 12/23/16 12/23/16 12/23/16 12/24/16 12/24/16 12/24/16 07:00 15:00 23:00 07:00 15:00 23:00 Intake Total 580 ml Balance 580 ml Intake Oral 580 ml # Voids 2 # Bowel Movements 0 Result Diagram: 12/24/16 0500 12/24/16 0500 Imaging Last 72 hours Impressions Wrist X-Ray 12/23/16 0000 Signed Impressions: Service Date/Time: November 18:21 - CONCLUSION: 1. No acute fracture or malalignment. 2. Osteopenia and moderate to severe osteoarthritic change. Forrest Young MD Tibia/Fibula X-Ray 12/23/16 0000 Signed Impressions: Service Date/Time: November 18:43 - CONCLUSION: 1. No additional fractures identified. 2. The distal fibular fracture is again visualized. Forrest Young MD Radius/Ulna X-Ray 12/23/16 0000 Signed Impressions: Service Date/Time: November 18:21 - CONCLUSION: 1. Soft tissue swelling with no acute fracture or malalignment. Forrest Young MD Ankle X-Ray 12/23/16 0000 Signed Impressions: Service Date/Time: November 18:42 - CONCLUSION: 1. Mildly comminuted nondisplaced fracture of the distal fibula. 2. Mild degenerative change and osteopenia. Forrest Young MD Objective Remarks Bilateral upper extremities: Full range of motion neurovascularly intact Right lower extremity: Full range of motion and neurovascularly intact Left lower extremity: No pain with hip or knee range of motion. Short leg splint is in place. She has intact sensation in all toes is able to move them appropriately. She has good capillary refills Assessment & Plan Problem List: (1) Closed left fibular fracture (2) Impaired gait Assessment and Plan Nonweightbearing left lower extremity Maintain splint at all times. Elevation as needed. Physical therapy to work with ambulation with walker. Patient states that she was only able to move threes individual steps with a walker today with physical therapy. She lives at home by herself and has had weakness and impaired gait to her right lower extremity chronically. Discharge planning needs to reflect the ability to protect this ankle to avoid falling and displacing the fracture necessitating surgical intervention. Follow-up x-rays will need to be obtained in 7-10 days and if fracture continues to maintain position fiberglass casting will be performed. She understands that if she bears weight, falls on the left lower extremity or use left lower extremity balance is very likely to displace the fracture She is orthopedically cleared for discharge if a safe plan is established Forrest Self Jr. Dec 24, 2016 17:40
[2016-12-24] MEDS: metFORMIN HCL 500 MG TAB PO SCH (17:49)
[2016-12-24 20:00] VITALS: BP 152/86; PULSE 90; RESP 20; TEMP 98; O2SAT 95
[2016-12-24] MEDS: DOCUSATE SODIUM 50 MG/SENNA 8.6 MG TAB PO SCH (20:31)
[2016-12-25] VITALS: BP 151/76; PULSE 79; RESP 20; TEMP 97.2; O2SAT 97
[2016-12-25] MEDS: oxyCODONE/ACETAMINOPHEN 7.5 MG/325 MG TAB PO PRN ×2 (03:05→11:58)
[2016-12-25] MEDS: INSULIN ASPART SUPPLEMENTAL SCALE SQ SCH ×2 (05:59→11:00)
[2016-12-25] MEDS ORDERED: LEVOTHYROXINE SODIUM 125 MCG TAB PO SCH (06:00)
[2016-12-25 08:00] VITALS: BP 141/79; PULSE 71; RESP 21; TEMP 95.9; O2SAT 91
[2016-12-25] MEDS: metFORMIN HCL 500 MG TAB PO SCH (08:39)
[2016-12-25] MEDS: DOCUSATE SODIUM 50 MG/SENNA 8.6 MG TAB PO SCH (08:39)
[2016-12-25] MEDS: SODIUM CHLORIDE 0.9% FLUSH 10 ML FLUSH IV FLUSH SCH (08:40)
[2016-12-25] MEDS ORDERED: PANTOPRAZOLE SOD 20 MG DELAYED RELEASE TAB PO SCH (09:00)
[2016-12-25] MEDS ORDERED: LISINOPRIL 20 MG TAB PO SCH (09:00)
[2016-12-25] MEDS ORDERED: METOPROLOL TARTRATE 25 MG TAB PO SCH (09:00)
[2016-12-25] MEDS ORDERED: ATORVASTATIN 10 MG TAB PO SCH (09:00)
[2016-12-25] MEDS ORDERED: HYDROCHLOROTHIAZIDE 12.5 MG CAP PO SCH (09:00)
[2016-12-25] MEDS ORDERED: OXYC1TAB35 PO (10:41)
--- NOTE | 2016-12-25 10:43 | HHI.PR ---
Subjective Remarks Follow up for fall, left ankle fracture. Patient is doing well. Pain is well controlled. No fever, chills. She has been able to use bedside commode with some assistance. Objective Vitals Vital Signs Date Time Temp Pulse Resp B/P Pulse Ox O2 Delivery O2 Flow Rate FiO2 12/25/16 08:00 95.9 71 21 141/79 91 12/25/16 04:05 18 12/25/16 00:00 97.2 79 20 151/76 97 12/24/16 20:00 98.0 90 20 152/86 95 12/24/16 17:37 97.8 80 15 145/78 96 12/24/16 14:24 98.9 76 16 142/78 95 I/O 12/24/16 12/24/16 12/24/16 12/25/16 12/25/16 12/25/16 07:00 15:00 23:00 07:00 15:00 23:00 Intake Total 580 ml 1240 ml Balance 580 ml 1240 ml Intake Oral 580 ml 1240 ml # Voids 2 4 # Bowel Movements 0 0 Result Diagram: 12/24/16 0500 12/24/16 0500 Imaging Last Impressions Wrist X-Ray 12/23/16 0000 Signed Impressions: Service Date/Time: November 18:21 - CONCLUSION: 1. No acute fracture or malalignment. 2. Osteopenia and moderate to severe osteoarthritic change. Forrest Young MD Tibia/Fibula X-Ray 12/23/16 0000 Signed Impressions: Service Date/Time: November 18:43 - CONCLUSION: 1. No additional fractures identified. 2. The distal fibular fracture is again visualized. Forrest Young MD Radius/Ulna X-Ray 12/23/16 0000 Signed Impressions: Service Date/Time: November 18:21 - CONCLUSION: 1. Soft tissue swelling with no acute fracture or malalignment. Forrest Young MD Ankle X-Ray 12/23/16 0000 Signed Impressions: Service Date/Time: November 18:42 - CONCLUSION: 1. Mildly comminuted nondisplaced fracture of the distal fibula. 2. Mild degenerative change and osteopenia. Forrest Young MD Objective Remarks GENERAL: AOX3, NAD. SKIN: Warm and dry. HEAD: Normocephalic. EYES: No scleral icterus. No injection or drainage. NECK: Supple, trachea midline. No JVD or lymphadenopathy. CARDIOVASCULAR: Regular rate and rhythm without murmurs, gallops, or rubs. RESPIRATORY: Breath sounds equal bilaterally. No accessory muscle use. GASTROINTESTINAL: Abdomen soft, non-tender, nondistended. MUSCULOSKELETAL: No cyanosis, or edema. s/p splint on the left lower ext, able to move all toes. BACK: Nontender without obvious deformity. No CVA tenderness. Procedures None. A/P Problem List: (1) Closed left fibular fracture ICD Code: S82.402A Status: Acute (2) Laceration of left elbow ICD Code: S51.012A Status: Acute (3) Hypertension ICD Code: I10 Status: Chronic (4) Hypothyroidism ICD Code: E03.9 Status: Chronic Assessment and Plan Ms. Aguilar is a 76-year-old female with a history of hypertension, diabetes mellitus who presented to the emergency department after she sustained a mechanical fall. She injured her left elbow as well as a nondisplaced fracture of the left distal fibula. - Left distal fibular fracture - Status post splint placement in the ED. - Reviewed images by me on 12/24/2016. Shows distal fibular fracture on the left side. - Patient has been evaluated by PT recommends home health versus SNF. - evaluated by Ortho - recommends non-surgical management. - Discontinued [place] and started Percocet 7.5/325 mg for pain 5-10. - Bowel regimen when necessary. - Hypertension - continue lisinopril 20 mg daily, HCTZ 12.5 mg by mouth daily. Continue metoprolol 25 mg daily. - Hypothyroidism - continue levothyroxine 125 g daily. - Diabetes mellitus - Continue home medication metformin 500 mg twice a day. - Continue sliding scale insulin. Full code. Lovenox. Discharge patient to home Condition on discharge: Improved Diabetic Diet as tolerated Ad Archana activity Rx written: - Percocet 7.5/325mg Q6hrs PRN #20. Follow-up with primary care physician within two weeks. Orthopedic surgery within 10 days. Problem Qualifiers (1) Closed left fibular fracture: Qualified Code: S82.822A - Closed torus fracture of distal end of left fibula, initial encounter (2) Laceration of left elbow: Qualified Code: S51.012A - Laceration of left elbow, initial encounter Martha Willingham DO Dec 25, 2016 10:43 am
--- NOTE | 2016-12-25 11:59 | PD.PN.STU ---
Subjective Remarks Follow up for left distal fibular fracture. She states that her pain has been well controlled throughout the night. She is able to walk to be restroom with assistance. Denies fever, chills. Requested a bandage change on her left elbow. No current drainage noticed. Understands need to follow up with ortho after discharge. Objective Vitals Vital Signs Date Time Temp Pulse Resp B/P Pulse Ox O2 Delivery O2 Flow Rate FiO2 12/25/16 08:00 95.9 71 21 141/79 91 12/25/16 04:05 18 12/25/16 00:00 97.2 79 20 151/76 97 12/24/16 20:00 98.0 90 20 152/86 95 12/24/16 17:37 97.8 80 15 145/78 96 12/24/16 14:24 98.9 76 16 142/78 95 I/O 12/24/16 12/24/16 12/24/16 12/25/16 12/25/16 12/25/16 07:00 15:00 23:00 07:00 15:00 23:00 Intake Total 580 ml 1240 ml Balance 580 ml 1240 ml Intake Oral 580 ml 1240 ml # Voids 2 4 # Bowel Movements 0 0 Result Diagram: 12/24/16 0500 12/24/16 0500 Imaging Last 72 hours Impressions Wrist X-Ray 12/23/16 0000 Signed Impressions: Service Date/Time: November 18:21 - CONCLUSION: 1. No acute fracture or malalignment. 2. Osteopenia and moderate to severe osteoarthritic change. Forrest Young MD Tibia/Fibula X-Ray 12/23/16 0000 Signed Impressions: Service Date/Time: November 18:43 - CONCLUSION: 1. No additional fractures identified. 2. The distal fibular fracture is again visualized. Forrest Young MD Radius/Ulna X-Ray 12/23/16 0000 Signed Impressions: Service Date/Time: November 18:21 - CONCLUSION: 1. Soft tissue swelling with no acute fracture or malalignment. Forrest Young MD Ankle X-Ray 12/23/16 0000 Signed Impressions: Service Date/Time: November 18:42 - CONCLUSION: 1. Mildly comminuted nondisplaced fracture of the distal fibula. 2. Mild degenerative change and osteopenia. Forrest Young MD Objective Remarks GENERAL: This is a well-nourished, well-developed, obese patient, in no apparent distress. SKIN: No rashes, ecchymoses. Warm and dry. Sutured laceration on lateral aspect of left elbow. No drainage seen through bandage. HEAD: Atraumatic. Normocephalic. No temporal or scalp tenderness. EYES: Pupils equal round and reactive. No injection or drainage. ENT: Nose without bleeding, purulent drainage or septal hematoma. Airway patent. NECK: Trachea midline. No lymphadenopathy. Supple, nontender, no meningeal signs. CARDIOVASCULAR: Regular rate and rhythm without murmurs, gallops, or rubs. No JVD. RESPIRATORY: Clear to auscultation. Breath sounds equal bilaterally. No wheezes , rales, or rhonchi. GASTROINTESTINAL: Abdomen soft, non-tender, nondistended. No guarding. MUSCULOSKELETAL: Extremities without clubbing, cyanosis, or edema. Status post splint placement on the left lower extremity. Able to move all toes. NEUROLOGICAL: Awake and alert. No focal neurological deficits. Normal speech. A/P Assessment and Plan 76 year-old obese female with history of HTN and DM who presented to the ER on after a mechanical fall that resulted in left distal fibular fracture and left elbow laceration. Left Distal Fibular Fracture - s/p splint placement in ER - films reviewed; shows left sided distal fibular fracture, not displaced - continue Percocet 7.5/325 for pain 5-10; Acetaminophen for pain 1-4 - PT recommends dc with home health of SNF, patient prefers to go home - spoke to ortho, surgery not indicated; will follow-up as outpatient in 10 days Hypertension - continue home meds (lisinopril 20mg PO QD, HCTZ 12.5mg PO QD, Metoprolol 25mg PO QD) Hypothyroidism - continue home meds (levothyroxine 125 ug PO QAM 30 minutes before food) Diabetes Mellitus - Continue home med (metformin 500mg BID) - sliding scale insulin Discharge Planning Medically cleared for dc with home health Teri Majano Dec 25, 2016 11:59
--- NOTE | 2016-12-27 09:26 | MB ---
cc: STEPHIE GENTILE M.D. DATE OF CONSULTATION 12/23/2016 REASON FOR CONSULTATION Left distal fibular fracture. CONSULTING PHYSICIAN Dr. Hudson Sutton HISTORY OF PRESENT ILLNESS Lacy is a 76-year-old female who has had prior weakness and gait instability to her right lower extremity. She has suffered a TIA in the past. Her right lower extremity she does suffer sciatic symptoms and when getting into her SUV her right leg gave out and she fell upon her left leg. She was unable to ambulate and was brought to the emergency room for evaluation. X-rays showed a minimally displaced distal fibular fracture with well maintained ankle mortise. She was splinted and due to the inability to ambulate without putting weight on the left lower extremity was admitted and orthopedics was consulted. She has no other associated injuries to this fall. She denies hitting her head and denies losing consciousness. REVIEW OF SYSTEMS All are negative except for stated in the history of present illness. PAST MEDICAL HISTORY Past social history, hypertension, diabetes, hypothyroidism, gastroesophageal reflux disease, brain bleed from fall in 2013. PAST SURGICAL HISTORY Hysterectomy, left knee total replacement. MEDICATIONS Reported medications: 1. Docusate. 2. Multivitamin. 3. Omeprazole. 4. Metformin. 5. Metoprolol. 6. Lisinopril. 7. Levothyroxine. 8. . 9. Atorvastatin. ALLERGIES BEE STINGS WITH ANAPHYLAXIS. FAMILY HISTORY Has a history of Alzheimer's and Parkinson's. SOCIAL HISTORY Denies any tobacco, alcohol or illicit drugs. PHYSICAL EXAMINATION VITAL SIGNS: Temperature is 98.9, pulse of 76, respiratory rate is 16, blood pressure is 142/78, pulse oximetry is 95. GENERAL: Lacy is a 76-year-old female who is well-nourished, well-developed, no acute distress. She is alert and oriented to person, place and time. SKIN: Shows no rashes. She does have a few abrasions over her right anterior tibia. Skin is warm and dry. HEENT: Head is atraumatic, normocephalic. Eyes: Pupils are equal and reactive to light and accommodation. Extraocular movements are intact. ENT: Nose without bleeding; purulent drainage. Airway patent. NECK: Trachea is midline with no lymphadenopathy. CARDIOVASCULAR: Shows regular rate and rhythm. RESPIRATORY: Clear to auscultation with no wheezing. GASTROINTESTINAL: Abdomen is soft, nontender, nondistended. MUSCULOSKELETAL: Examination of bilateral upper extremities revealed no decreased range of motion or pain with motion of the shoulders, elbows or wrists. She has intact sensation over the radial, ulnar, median nerve distributions with good capillary refills bilaterally. She is able to fully extend her fingers and make a fist. EXTREMITIES: Examination of the right lower extremity reveals mild tenderness with hip range of motion. She has no tenderness with knee or ankle range of motion. Distally, she has intact sensation with good capillary refills, a strong dorsiflexion and plantar flexion of the foot. Left lower extremity, she has no pain with hip or knee range of motion. She has a splint but is intact, it is well-padded. Distally, she has intact sensation all her toes with good capillary refills. She is able to move all her toes appropriately. LABORATORY DATA Laboratory tests show white blood cell count of 6.6, hemoglobin is 13 and hematocrit of 38.5. Chemistries all have been normal limits except for carbon dioxide which is 32.3. She has a random glucose of 148. IMAGING STUDIES Ankle x-rays three views, AP, lateral, mortis views taken on 12/23/2016 show a mildly displaced distal fibular fracture. There is no widening of the medial clear space syndesmosis. No other fractures are noted. ASSESSMENT 1. Left minimally displaced left distal fibula fracture. 2. Gait instability. She is to continue to maintain the splint and be non-weightbearing on the left lower extremity. She understands that if she does stand to bear weight or balance or fall upon this ankle she could displace the fracture and can necessitate surgical intervention. It is recommended that she follow up with orthopedics in 7 to 10 days for repeat x-rays and plan conservative measures. If the fracture does displace surgery may be necessary. She will work with physical therapy to assess safety. Safety is a concern since she lives by herself and she does have gait instability. She will work hard to progress her activities and look into options with family and friends if possible. If all else fails detention may be necessary. Thank you for the consultation. The patient's x-rays and plan are reviewed and agreed with by Dr. Jones and will continue to follow this patient as we follow this fracture. Dictated by LYDIA Schaeffer MD CRYSTAL Newman /5:49 PM /9:28 AM
== END 2016-12-25 12:30 | disposition home or self-care (01) ==
LOC: PHEFT 17:50 → PHEDA 21:48 → PH3B 22:32
PROVIDERS: ADMIT Hospitalist; ATTEND Hospitalist
DX: S82.832A Other fracture of upper and lower end of left fibula, initial encounter for closed fracture (principal); S51.012A Laceration without foreign body of left elbow, initial encounter; E11.9 Type 2 diabetes mellitus without complications; I10 Essential (primary) hypertension; E03.9 Hypothyroidism, unspecified; K21.9 Gastro-esophageal reflux disease without esophagitis; E78.00 Pure hypercholesterolemia, unspecified; R26.89 Other abnormalities of gait and mobility; R26.2 Difficulty in walking, not elsewhere classified; K44.9 Diaphragmatic hernia without obstruction or gangrene; Z79.84 Long term (current) use of oral hypoglycemic drugs; W01.0XXA Fall on same level from slipping, tripping and stumbling without subsequent striking against object, initial encounter; Y93.89 Activity, other specified; Z96.652 Presence of left artificial knee joint; Y92.019 Unspecified place in single-family (private) house as the place of occurrence of the external cause
CPT/HCPCS: 12001; 29515; 73090; 73110; 73590; 73610; 80048; 82948; 85025; 97162; 99285; G0378; G8987; G8988; J1650

== ENCOUNTER 2016-12-25 19:14 | Observation (INO) | payer MEDICARE ==
[~2016-12-25] VITALS: Ht 172.7 cm; Wt 107.9 kg
[~2016-12-25 19:14] MED LIST changes: +COMMODE 3-IN-11 MIS; +OXYC1TAB35 PO
[2016-12-25 19:28] VITALS: BP 147/67; PULSE 84; RESP 20; TEMP 98.9; O2SAT 98
[2016-12-25] MEDS ORDERED: ONDANSETRON ODT 4 MG TAB PO ONE (19:45)
[2016-12-25] MEDS ORDERED: HYDROmorphone HCL PF 2 MG/ML VIAL IM ONE (19:45)
[2016-12-25 20:00] VITALS: BP 138/72; PULSE 76; RESP 20; O2SAT 93
--- NOTE | 2016-12-25 20:00 | PD ---
HPI . Left ankle fracture Chief Complaint: Fall Time Seen by Provider: 19:28 Travel History International Travel<30 days: No Contact w/Intl Traveler<30days: No History of Present Illness HPI Patient presents with a chief complaint of a left ankle fracture. This occurred on 12/23. She was admitted at that time and was discharged today. She states that she just can't make it at home by herself. She states that she does not have adequate help at home to take care of herself and that she needs to go to rehabilitation. She also states that her pain is not controlled with Percocet. She is currently complaining of a severe, constant pain in the left ankle which she rates at 9/10. In addition to the left ankle fracture, she has a left arm laceration. This also occurred on 12/23. PFSH Past Medical History Arthritis: Yes Autoimmune Disease: No Blood Disorders: No Anxiety: No Depression: No Heart Rhythm Problems: No Cancer: No Cardiovascular Problems: Yes High Cholesterol: Yes Chemotherapy: No Chest Pain: No Congestive Heart Failure: No Cirrhosis: No Diabetes: Yes Patient Takes Glucophage: Yes (12/25/16-799) Diminished Hearing: No Endocrine: Yes Gastrointestinal Disorders: Yes GERD: Yes Glaucoma: No Genitourinary: No Hepatitis: No Hiatal Hernia: Yes Heparin Induced Thrombocytopen: No Hypertension: Yes Immune Disorder: No Musculoskeletal: Yes Neurologic: Yes (STATES BRAIN BLEED FROM FALL 2013) Psychiatric: No Reproductive: No Respiratory: No Myocardial Infarction: No Radiation Therapy: No Sickle Cell Disease: No Thyroid Disease: Yes Ulcer: No Menopausal: Yes Past Surgical History Abdominal Surgery: Yes AICD: No Appendectomy: Yes Arteriovenous Shunt: No Cardiac Surgery: No Cholecystectomy: Yes Ear Surgery: No Endocrine Surgery: No Eye Surgery: No Genitourinary Surgery: No Gynecologic Surgery: Yes Hysterectomy: Yes Insulin Pump: No Joint Replacement: Yes (LEFT KNEE) Neurologic Surgery: No Oral Surgery: No Pacemaker: No Thoracic Surgery: No Other Surgery: Yes (LEFT KNEE) Social History Alcohol Use: No Tobacco Use: No Substance Use: No Allergies-Medications (Allergen,Severity, Reaction): Coded Allergies: Bee Sting (Verified Allergy, Severe, ANAPHYLAXIS, 12/25/16) Reported Meds & Prescriptions Reported Meds & Active Scripts Active Oxycodone-Acetaminophen 7.5-325 mg Tab 1 Tab PO Q6H PRN Commode 3-in-1 (Device) 1 Mis Mis 1 Ea .ROUTE DIRECTED Reported Stool Softener (Docusate Sodium) 100 Mg Cap 1 Cap PO DAILY Ocuvite Lutein (Multiple Vitamins W/ Minerals) 1 Cap Cap 1 Cap PO DAILY Omeprazole 20 Mg Tab 20 Mg PO DAILY Metformin (Metformin HCl) 500 Mg Tab 500 Mg PO BIDPC With meals Metoprolol Tartrate 25 Mg Tab 25 Mg PO DAILY Lisinopril-Hctz 20-12.5 Mg Tab 1 Tab PO DAILY Levothyroxine (Levothyroxine Sodium) 125 Mcg Tab 125 Mcg PO DAILY Celecoxib 200 Mg Cap 200 Mg PO BID Atorvastatin (Atorvastatin Calcium) 10 Mg Tab 10 Mg PO DAILY Review of Systems Except as stated in HPI: all other systems reviewed are Neg Physical Exam Narrative GENERAL: Awake and alert and in no acute distress. SKIN: Warm and dry. She has a dressing on the left arm just distal to the elbow. HEAD: Atraumatic. Normocephalic. EYES: Pupils equal and round. NECK: Trachea midline. CARDIOVASCULAR: Regular rate and rhythm. RESPIRATORY: No accessory muscle use. MUSCULOSKELETAL: She has a splint on her left ankle. She has good capillary refill and movement distal to this plan. NEUROLOGICAL: Awake and alert. No obvious cranial nerve deficits. Motor grossly within normal limits. Normal speech. PSYCHIATRIC: Appropriate mood and affect; insight and judgment normal. Data Data Last Documented VS Vital Signs Date Time Temp Pulse Resp B/P Pulse Ox O2 Delivery O2 Flow Rate FiO2 12/25/16 19:42 20 98 12/25/16 19:28 98.9 84 147/67 Orders Hydromorphone Pf Inj (Dilaudid Pf Inj) (12/25/16 19:45) Ondansetron Odt (Zofran Odt) (12/25/16 19:45) [facility] Medical Decision Making Medical Screen Exam Complete: Yes Emergency Medical Condition: Yes Differential Diagnosis Differential diagnosis of extremity trauma includes but is not limited to fracture, sprain or strain, dislocation, contusion Narrative Course This patient presents status post a left ankle fracture on 12/23. She was admitted until today. She has only been home for a few hours and presents back stating that she just can't make it at home. She is having difficulty with transfers to the bathroom, etc. She states that she needs to be admitted for rehabilitation. Physician Communication Physician Communication Discussed with Dr. Trejo who will admit to OBS. Further evaluation by skilled nursing case manager in the AM. Diagnosis Primary Impression: Closed left fibular fracture Qualified Code: S82.832D - Closed fracture of distal end of left fibula with routine healing, unspecified fracture morphology, subsequent encounter Ruled Out: Open left ankle fracture Admitting Information Admitting Physician Requests: Observation Condition: Stable Nelly Erazo MD Dec 25, 2016 20:00
[2016-12-25] MEDS ORDERED: ONDANSETRON HCL 4 MG/2 ML VIAL IVP PRN (20:15)
[2016-12-25] MEDS ORDERED: SODIUM CHLORIDE 0.9% FLUSH 10 ML FLUSH IV FLUSH PRN (20:15)
[2016-12-25] MEDS ORDERED: SENNOSIDES 8.6 MG TAB PO PRN (20:15)
[2016-12-25] MEDS ORDERED: DEXTROSE 50% IN WATER 50 ML VIAL(D50) IV PRN (20:15)
[2016-12-25] MEDS ORDERED: MAGNESIUM HYDROXIDE SUSP 30 ML CUP PO PRN (20:15)
[2016-12-25] MEDS ORDERED: GLUCAGON 1 MG/ML VIAL OTHER PRN (20:15)
[2016-12-25] MEDS ORDERED: BISACODYL 10 MG SUPP RECTAL PRN (20:15)
[2016-12-25] MEDS ORDERED: LACTULOSE SYRUP 20 GM/30 ML CUP PO PRN (20:15)
[2016-12-25] MEDS ORDERED: ACETAMINOPHEN 325 MG TAB PO PRN (20:15)
[2016-12-25] MEDS ORDERED: MORPHINE SULFATE 8 MG/ML INJ IV PUSH PRN (20:30)
[2016-12-25 20:50] VITALS: BP 126/69; PULSE 74; RESP 20; O2SAT 94
[2016-12-25] MEDS: INSULIN ASPART SUPPLEMENTAL SCALE SQ SCH (21:00)
[2016-12-25] MEDS: SODIUM CHLORIDE 0.9% FLUSH 10 ML FLUSH IV FLUSH SCH (21:00)
[2016-12-25] MEDS: DOCUSATE SODIUM 50 MG/SENNA 8.6 MG TAB PO SCH (21:00)
[2016-12-25 22:08] VITALS: BP 131/62
[2016-12-25 22:10] VITALS: BP 133/92; PULSE 78; RESP 20; TEMP 97.2; O2SAT 91
[2016-12-26 01:02] VITALS: BP 111/79; PULSE 74; RESP 20; TEMP 96.8; O2SAT 94
[2016-12-26] MEDS: LEVOTHYROXINE SODIUM 125 MCG TAB PO SCH (06:14)
[2016-12-26] MEDS: INSULIN ASPART SUPPLEMENTAL SCALE SQ SCH ×4 (06:18→20:49)
[2016-12-26 07:39] LABS: BASOPHIL % 0.7 % (0.0-2.0); EOSINOPHIL # 0.1 TH/MM3 (0-0.4); EOSINOPHIL % 1.1 % (0.0-4.0); HEMATOCRIT 37.4 % (35.0-46.0); HEMO FLAGS DIFF FINAL; LYMPH % 21.9 % (9.0-44.0); LYMPHOCYTE # 1.5 TH/MM3 (1.0-4.8); MEAN CELL VOLUME 87.5 FL (80.0-100.0); MEAN CORPUSCULAR HEMOGLOBIN 29.8 PG (27.0-34.0); MONO % 4.7 % (0.0-8.0); NEUT % 71.6 % (16.0-70.0); PLATELET COUNT 214 TH/MM3 (150-450); RED BLOOD COUNT 4.27 MIL/MM3 (4.00-5.30); RED CELL DISTRIBUTION WIDTH 12.9 % (11.6-17.2); WHITE BLOOD COUNT 6.9 TH/MM3 (4.0-11.0)
[2016-12-26 07:52] LABS: CHLORIDE 101 MEQ/L (98-107); POTASSIUM 3.5 MEQ/L (3.5-5.1); SODIUM (NA) 141 MEQ/L (136-145)
[2016-12-26 07:59] LABS: ANION GAP 7 MEQ/L (5-15); BICARBONATE 32.9 MEQ/L (21.0-32.0); BLOOD UREA NITROGEN 13 MG/DL (7-18)
[2016-12-26 08:00] VITALS: BP 124/64; PULSE 75; RESP 18; TEMP 97.1; O2SAT 95
[2016-12-26 08:02] LABS: ALT (GPT) 27 U/L (10-53); AST (GOT) 46 U/L (15-37); GLOMERULAR FILTRATION RATE 84 ML/MIN (>89)
[2016-12-26 08:04] LABS: TOTAL BILIRUBIN ADULT 0.8 MG/DL (0.2-1.0)
[2016-12-26 08:05] LABS: ALKALINE PHOSPHATASE 67 U/L (45-117)
[2016-12-26] MEDS: MULTIVITAMIN-OPHTHALMIC 1 TAB PO SCH (08:10)
[2016-12-26] MEDS: PANTOPRAZOLE SOD 20 MG DELAYED RELEASE TAB PO SCH (08:10)
[2016-12-26] MEDS: DOCUSATE SODIUM 50 MG/SENNA 8.6 MG TAB PO SCH ×2 (08:10→20:46)
[2016-12-26] MEDS: METOPROLOL TARTRATE 25 MG TAB PO SCH (08:10)
[2016-12-26] MEDS: LISINOPRIL 20 MG TAB PO SCH (08:10)
[2016-12-26] MEDS: metFORMIN HCL 500 MG TAB PO SCH ×2 (08:11→17:12)
[2016-12-26] MEDS: ATORVASTATIN 10 MG TAB PO SCH (08:11)
[2016-12-26] MEDS: HYDROCHLOROTHIAZIDE 25 MG TAB PO SCH (08:11)
[2016-12-26] MEDS: ENOXAPARIN SODIUM 40 MG/0.4 ML SYRINGE SQ SCH (08:12)
[2016-12-26] MEDS: SODIUM CHLORIDE 0.9% FLUSH 10 ML FLUSH IV FLUSH SCH ×2 (08:16→20:45)
[2016-12-26] MEDS ORDERED: NON-FORMULARY DRUG (Lisinopril-Hctz 1 TAB) PO SCH (09:00)
--- NOTE | 2016-12-26 11:18 | HHI.HP ---
HPI Service [facility] Primary Care Physician Davey Chavez MD Admission Diagnosis right ankle fracture Diagnoses: Chief Complaint: Pain, fall due to right ankle fracture. Travel History International Travel<30 Days: No Contact w/Intl Traveler <30 Da: No Traveled to Known Affected Are: No History of Present Illness Miss Aguilar is a pleasant 76-year-old female with a history of hypertension, diabetes mellitus who was discharged from the hospital on 2016 after evaluation and treatment for her right ankle fracture. On 12/23/2016 patient fell and injured her left elbow, left wrist and left ankle. Radiological studies indicated left distal fibular fracture. Orthopedic surgery recommended conservative management. Patient was evaluated by physical therapy who recommended home health versus longterm facility. Patient was discharged home with home health PT. After she went home, she was trying to get up but her splinted left leg started slipping against the tile floor and she fell on her buttock. Although she has some some family help at home, these are temporary and inadequate. Patient denies any chest pain, shortness of breath , fever, chills. No changes in bowel or bladder habits. Review of Systems Except as stated in HPI: all other systems reviewed are Neg Past Family Social History Past Medical History Hypertension, diabetes mellitus, hypothyroidism, GERD Brain bleed from a fall in 2013 Past Surgical History Hysterectomy, left knee replacement Reported Medications Oxycodone-Acetaminophen 7.5-325 mg Tab 1 Tab PO Q6H PRN Stool Softener (Docusate Sodium) 100 Mg Cap 1 Cap PO DAILY Ocuvite Lutein (Multiple Vitamins W/ Minerals) 1 Cap Cap 1 Cap PO DAILY Omeprazole 20 Mg Tab 20 Mg PO DAILY Metformin (Metformin HCl) 500 Mg Tab 500 Mg PO BIDPC With meals Metoprolol Tartrate 25 Mg Tab 25 Mg PO DAILY Lisinopril-Hctz 20-12.5 Mg Tab 1 Tab PO DAILY Levothyroxine (Levothyroxine Sodium) 125 Mcg Tab 125 Mcg PO DAILY Celecoxib 200 Mg Cap 200 Mg PO BID Atorvastatin (Atorvastatin Calcium) 10 Mg Tab 10 Mg PO DAILY Allergies: Coded Allergies: Bee Sting (Verified Allergy, Severe, ANAPHYLAXIS, 12/25/16) Family History No family history of cancer, Alzheimer's or Parkinson's. Social History Patient denies using tobacco, alcohol, illicit drugs. Physical Exam Vital Signs Vital Signs Date Time Temp Pulse Resp B/P Pulse Ox O2 Delivery O2 Flow Rate FiO2 12/26/16 08:00 97.1 75 18 124/64 95 12/26/16 01:02 96.8 74 20 111/79 94 12/25/16 22:10 97.2 78 20 133/92 91 12/25/16 22:08 72 20 131/62 94 12/25/16 20:50 74 20 126/69 94 12/25/16 20:00 76 20 138/72 93 12/25/16 19:42 20 98 12/25/16 19:28 98.9 84 20 147/67 98 Physical Exam GENERAL: This is a well-nourished, well-developed patient, in no apparent distress. SKIN: No rashes, ecchymoses or lesions. Warm and dry. HEAD: Atraumatic. Normocephalic. No temporal or scalp tenderness. EYES: Pupils equal round and reactive. No injection or drainage. ENT: Nose without bleeding, purulent drainage or septal hematoma. Airway patent. NECK: Trachea midline. No lymphadenopathy. Supple, nontender, no meningeal signs. CARDIOVASCULAR: Regular rate and rhythm without murmurs, gallops, or rubs. No JVD. RESPIRATORY: Clear to auscultation. Breath sounds equal bilaterally. No wheezes , rales, or rhonchi. GASTROINTESTINAL: Abdomen soft, non-tender, nondistended. No guarding. MUSCULOSKELETAL: Extremities without clubbing, cyanosis, or edema. Status post splint placement on the left lower extremity. Able to move all toes. NEUROLOGICAL: Awake and alert. Cranial nerves II through XII intact. No focal neurological deficits. Normal speech. Laboratory Laboratory Tests Test 12/26/16 06:45 White Blood Count 6.9 Red Blood Count 4.27 Hemoglobin 12.7 Hematocrit 37.4 Mean Corpuscular Volume 87.5 Mean Corpuscular Hemoglobin 29.8 Mean Corpuscular Hemoglobin 34.0 Concent Red Cell Distribution Width 12.9 Platelet Count 214 Mean Platelet Volume 8.0 Neutrophils (%) (Auto) 71.6 Lymphocytes (%) (Auto) 21.9 Monocytes (%) (Auto) 4.7 Eosinophils (%) (Auto) 1.1 Basophils (%) (Auto) 0.7 Neutrophils # (Auto) 5.0 Lymphocytes # (Auto) 1.5 Monocytes # (Auto) 0.3 Eosinophils # (Auto) 0.1 Basophils # (Auto) 0.0 CBC Comment DIFF FINAL Differential Comment Sodium Level 141 Potassium Level 3.5 Chloride Level 101 Carbon Dioxide Level 32.9 Anion Gap 7 Blood Urea Nitrogen 13 Creatinine 0.68 Estimat Glomerular Filtration 84 Rate Random Glucose 131 Calcium Level 9.1 Total Bilirubin 0.8 Aspartate Amino Transf 46 (AST/SGOT) Alanine Aminotransferase 27 (ALT/SGPT) Alkaline Phosphatase 67 Total Protein 6.9 Albumin 3.2 Result Diagram: 12/26/16 0645 12/26/16 0645 Assessment and Plan Assessment and Plan Ms. Aguilar is a 76-year-old female with a history of hypertension, diabetes mellitus who presented to the emergency department after she sustained a mechanical fall. She injured her left elbow as well as a nondisplaced fracture of the left distal fibula. - Left distal fibular fracture - Status post splint placement in the ED on 12/23/2016. - Patient was evaluated by PT recommends home health versus SNF. Will ask PT to see patient again. - Discussed with CM regarding possible SNF placement. We will continue placement efforts. - Bowel regimen when necessary. - Oxycodone 5mg Q4hrs PRN and Morphine 2mg Q3hrs PRN for pain. - Hypertension - continue lisinopril 20 mg daily, HCTZ 12.5 mg by mouth daily. Continue metoprolol 25 mg daily. - Hypothyroidism - continue levothyroxine 125 g daily. - Diabetes mellitus - Continue home medication metformin 500 mg twice a day. - Continue sliding scale insulin. Full code. Lovenox 40mg Q24hrs. Martha Willingham DO Dec 26, 2016 11:18 am
[2016-12-26 12:00] VITALS: BP 122/77; PULSE 70; RESP 19; TEMP 97.5; O2SAT 92
[2016-12-26 16:00] VITALS: BP 111/71; PULSE 74; RESP 19; TEMP 96.6; O2SAT 94
[2016-12-26 20:00] VITALS: BP 109/54; PULSE 76; RESP 18; TEMP 98.1; O2SAT 96
[2016-12-27] VITALS: BP 105/66; PULSE 82; RESP 18; TEMP 97; O2SAT 96
[2016-12-27] MEDS: LEVOTHYROXINE SODIUM 125 MCG TAB PO SCH (05:51)
[2016-12-27] MEDS: INSULIN ASPART SUPPLEMENTAL SCALE SQ SCH ×3 (05:52→16:00)
[2016-12-27 08:00] VITALS: BP 127/71; PULSE 71; RESP 20; TEMP 96.9; O2SAT 97
--- NOTE | 2016-12-27 09:45 | HHI.PR ---
Subjective Remarks Follow up for left fibular fracture. Patient is resting well in bed. However, she is unable to stand up. Her right leg is weak and she cannot put any weight on the left leg. No fever, chills. Objective Vitals Vital Signs Date Time Temp Pulse Resp B/P Pulse Ox O2 Delivery O2 Flow Rate FiO2 12/27/16 08:00 96.9 71 20 127/71 97 12/27/16 01:33 18 12/27/16 00:00 97.0 82 18 105/66 96 12/26/16 20:00 98.1 76 18 109/54 96 12/26/16 16:00 96.6 74 19 111/71 94 12/26/16 12:00 97.5 70 19 122/77 92 I/O 12/26/16 12/26/16 12/26/16 12/27/16 12/27/16 12/27/16 07:00 15:00 23:00 07:00 15:00 23:00 Intake Total 120 ml 240 ml Output Total 500 ml Balance 120 ml -260 ml Intake Oral 120 ml 240 ml IV Total 0 ml Output Urine Total 500 ml # Voids 3 3 # Bowel Movements 0 Result Diagram: 12/26/16 0645 12/26/16 0645 Objective Remarks GENERAL: Alert, NAD. SKIN: Warm and dry. HEAD: Normocephalic. EYES: No scleral icterus. No injection or drainage. NECK: Supple, trachea midline. No JVD or lymphadenopathy. CARDIOVASCULAR: Regular rate and rhythm without murmurs, gallops, or rubs. RESPIRATORY: Breath sounds equal bilaterally. No accessory muscle use. GASTROINTESTINAL: Abdomen soft, non-tender, nondistended. MUSCULOSKELETAL: No cyanosis, or edema. s/p splint placement on the left lower ext. BACK: Nontender without obvious deformity. No CVA tenderness. Procedures None. A/P Assessment and Plan Ms. Aguilar is a 76-year-old female with a history of hypertension, diabetes mellitus who presented to the emergency department after she sustained a mechanical fall. She injured her left elbow as well as a nondisplaced fracture of the left distal fibula. - Left distal fibular fracture - Status post splint placement in the ED on 12/23/2016. - Patient was evaluated by PT recommends home health versus SNF. PT is following here. - Discussed with CM regarding possible SNF placement. We will continue placement efforts. - Bowel regimen when necessary. - Oxycodone 5mg Q4hrs PRN and Morphine 2mg Q3hrs PRN for pain. - Hypertension - continue lisinopril 20 mg daily, HCTZ 12.5 mg by mouth daily. Continue metoprolol 25 mg daily. - Hypothyroidism - continue levothyroxine 125 g daily. - Diabetes mellitus - Continue home medication metformin 500 mg twice a day. - Continue sliding scale insulin. Full code. Lovenox 40mg Q24hrs. Discussed with CM. Patient has a pen[facility]ent[facility] insurance. CM is working on placement. Martha Willingham DO Dec 27, 2016 9:45 am
[2016-12-27] MEDS: HYDROCHLOROTHIAZIDE 25 MG TAB PO SCH (09:50)
[2016-12-27] MEDS: DOCUSATE SODIUM 50 MG/SENNA 8.6 MG TAB PO SCH (09:50)
[2016-12-27] MEDS: MULTIVITAMIN-OPHTHALMIC 1 TAB PO SCH (09:51)
[2016-12-27] MEDS: ENOXAPARIN SODIUM 40 MG/0.4 ML SYRINGE SQ SCH (09:51)
[2016-12-27] MEDS: ATORVASTATIN 10 MG TAB PO SCH (09:51)
[2016-12-27] MEDS: metFORMIN HCL 500 MG TAB PO SCH ×2 (09:51→16:14)
[2016-12-27] MEDS: LISINOPRIL 20 MG TAB PO SCH (09:51)
[2016-12-27] MEDS: PANTOPRAZOLE SOD 20 MG DELAYED RELEASE TAB PO SCH (09:51)
[2016-12-27] MEDS: METOPROLOL TARTRATE 25 MG TAB PO SCH (09:51)
[2016-12-27] MEDS: SODIUM CHLORIDE 0.9% FLUSH 10 ML FLUSH IV FLUSH SCH (09:51)
[2016-12-27 12:00] VITALS: BP 114/69; PULSE 69; RESP 20; TEMP 97.8; O2SAT 97
[2016-12-27] MEDS ORDERED: OXYC1TAB35 PO (15:23)
[2016-12-27 16:00] VITALS: BP 128/65; PULSE 77; RESP 18; TEMP 97.2; O2SAT 95
== END 2016-12-27 19:46 ==
LOC: PHED 19:14 → PHEDA 20:09 → PH3B 22:03
PROVIDERS: ADMIT Hospitalist; ATTEND Hospitalist
DX: S82.832A Other fracture of upper and lower end of left fibula, initial encounter for closed fracture (principal); S41.112A Laceration without foreign body of left upper arm, initial encounter; E11.9 Type 2 diabetes mellitus without complications; E03.9 Hypothyroidism, unspecified; I10 Essential (primary) hypertension; K21.9 Gastro-esophageal reflux disease without esophagitis; Z96.652 Presence of left artificial knee joint; Z79.4 Long term (current) use of insulin; Z79.84 Long term (current) use of oral hypoglycemic drugs; Y92.019 Unspecified place in single-family (private) house as the place of occurrence of the external cause; W01.0XXA Fall on same level from slipping, tripping and stumbling without subsequent striking against object, initial encounter
CPT/HCPCS: 80053; 82948; 85025; 96372; 97162; 99285; G0378; G8987; G8988; J1170; J1650

== ENCOUNTER 2017-01-03 12:09 | Emergency (ER) | payer MEDICARE ==
[~2017-01-03 12:09] MED LIST changes: -CIPR-9 PO; -TRAM50TA PO
[2017-01-03 12:20] VITALS: BP 112/64; PULSE 97; RESP 15; TEMP 98.2; O2SAT 96
--- NOTE | 2017-01-03 13:10 | PD ---
HPI Chief Complaint: Dizziness Time Seen by Provider: 13:05 Travel History International Travel<30 days: No Contact w/Intl Traveler<30days: No Traveled to known affect area: No History of Present Illness HPI Patient is a 76-year-old female presenting to the emergency department evaluation of a headache and dizziness. Patient states headache started on Tuesday, she has been taking Percocet with no relief of her symptoms. She reports that when she gets up she sees flashes of light. Patient is concerned because she had a history of a brain bleed after a fall several years ago. She fell recently 10 days ago and suffered a left distal tibia fracture. Patient is currently in [facility] and rehabilitation. She reports the pain in her head as a 7 out of 10, frontal and behind her eyes. PFSH Past Medical History Hx Anticoagulant Therapy: Yes (XARELTO) Arthritis: Yes Autoimmune Disease: No Blood Disorders: No Anxiety: No Depression: No Heart Rhythm Problems: No Cancer: No Cardiovascular Problems: Yes High Cholesterol: Yes Chemotherapy: No Chest Pain: No Congestive Heart Failure: No Cirrhosis: No Cerebrovascular Accident: No Diabetes: Yes Patient Takes Glucophage: Yes Diminished Hearing: No Gastrointestinal Disorders: Yes GERD: Yes Glaucoma: No Genitourinary: Yes (incontinent) Hepatitis: No Hiatal Hernia: Yes Heparin Induced Thrombocytopen: No Hypertension: Yes Immune Disorder: No Kidney Stones: No Musculoskeletal: Yes Neurologic: Yes (STATES BRAIN BLEED FROM FALL 2013) Psychiatric: No Reproductive: No Respiratory: No Migraines: No Myocardial Infarction: No Radiation Therapy: No Renal Failure: No Seizures: No Sickle Cell Disease: No Thyroid Disease: Yes Ulcer: No Menopausal: Yes Past Surgical History Abdominal Surgery: Yes AICD: No Appendectomy: Yes Arteriovenous Shunt: No Cardiac Surgery: No Cholecystectomy: Yes Ear Surgery: Yes (cataracts removed) Endocrine Surgery: No Eye Surgery: No Genitourinary Surgery: No Hysterectomy: Yes Insulin Pump: No Joint Replacement: Yes (LEFT KNEE) Neurologic Surgery: No Oral Surgery: No Pacemaker: No Thoracic Surgery: No Social History Alcohol Use: No Tobacco Use: No Substance Use: No Allergies-Medications (Allergen,Severity, Reaction): Coded Allergies: Bee Sting (Verified Allergy, Severe, ANAPHYLAXIS, 01/03/17) Reported Meds & Prescriptions Reported Meds & Active Scripts Active Reported Percocet (Oxycodone-Acetaminophen) 7.5-325 mg Tab 1 Tab PO Q4H PRN Neurontin (Gabapentin) 100 Mg Cap 100 Mg PO TID Humalog Inj (Insulin Human Lispro) 1,000 Unit/10 Ml Vial 2-12 Units SQ ACHS Max dose at bedtime:( )units; sugars < 70,(0)units; sugars 150-199,(2)units; sugars 200-249,(4)units; sugars 250-299,(7)units; sugars 300-349,(10)units; sugars more than 349,(12)units. Cetirizine (Cetirizine HCl) 10 Mg Tab 10 Mg PO DAILY Xarelto (Rivaroxaban) 10 Mg Tab 10 Mg PO DAILY Stool Softener (Docusate Sodium) 100 Mg Cap 1 Cap PO DAILY Ocuvite Lutein (Multiple Vitamins W/ Minerals) 1 Cap Cap 1 Cap PO DAILY Omeprazole 20 Mg Tab 20 Mg PO DAILY Metformin (Metformin HCl) 500 Mg Tab 500 Mg PO BIDPC With meals Metoprolol Tartrate 25 Mg Tab 25 Mg PO DAILY Lisinopril-Hctz 20-12.5 Mg Tab 1 Tab PO DAILY Levothyroxine (Levothyroxine Sodium) 125 Mcg Tab 125 Mcg PO DAILY Celecoxib 200 Mg Cap 200 Mg PO BID Atorvastatin (Atorvastatin Calcium) 10 Mg Tab 10 Mg PO DAILY Review of Systems Except as stated in HPI: all other systems reviewed are Neg Eyes: Positive: Visual changes HENT: Positive: Headaches Cardiovascular: No: Chest Pain or Discomfort Respiratory: Positive: Shortness of Breath Gastrointestinal: No: Nausea, Vomiting, Abdominal Pain Musculoskeletal: Positive: Pain (left lower leg) Neurologic: Positive: Dizziness, Headache Physical Exam Narrative GENERAL: Obese, well-developed, alert elderly female. Resting comfortably in no acute distress. SKIN: Warm and dry. HEAD: Atraumatic. Normocephalic. EYES: Pupils equal and round. No scleral icterus. No injection or drainage. ENT: No nasal bleeding or discharge. Mucous membranes pink and moist. NECK: Trachea midline. No JVD. CARDIOVASCULAR: Regular rate and rhythm. RESPIRATORY: No accessory muscle use. Clear to auscultation. Breath sounds equal bilaterally. GASTROINTESTINAL: Abdomen soft, non-tender, nondistended. Hepatic and splenic margins not palpable. MUSCULOSKELETAL: Extremities without clubbing, cyanosis, or edema. Left lower leg in a splint. NEUROLOGICAL: Awake and alert. No obvious cranial nerve deficits. Motor grossly within normal limits. Five out of 5 muscle strength in the arms and legs. Normal speech. PSYCHIATRIC: Appropriate mood and affect; insight and judgment normal. Data Data Last Documented VS Vital Signs Date Time Temp Pulse Resp B/P Pulse Ox O2 Delivery O2 Flow Rate FiO2 01/03/17 12:20 98.2 97 15 112/[address] Brain W/O Iv Contrast(Rout) (01/03/17 ) Tibia/Fibula (Ap/Lat) (01/03/17 ) Acetaminophen (Tylenol) (01/03/17 13:15) Blood Glucose (01/03/17 14:35) Diet 1999 Ada Cons Carb (01/03/17 Lunch) MDM Medical Decision Making Medical Screen Exam Complete: Yes Emergency Medical Condition: Yes Medical Record Reviewed: Yes Interpretation(s) Last Impressions Tibia/Fibula X-Ray 01/03/17 0000 Signed Impressions: Service Date/Time: Tuesday, January 03, 2017 13:20 - CONCLUSION: Distal fibular fractures. K. Jayy Portillo MD Head CT 01/03/17 0000 Signed Impressions: Service Date/Time: Tuesday, January 03, 2017 13:33 - CONCLUSION: No acute intracranial findings Wesley Tobin MD Vital Signs Date Time Temp Pulse Resp B/P Pulse Ox O2 Delivery O2 Flow Rate FiO2 01/03/17 12:20 98.2 97 15 112/64 96 01/03/17 12:20 15 Differential Diagnosis Hemorrhage versus sinusitis versus migraine versus tension-type headache versus other Narrative Course Patient is a 76-year-old female that presented for evaluation of a headache and dizziness. She reports shortness of breath when she attempts to change position. Patient has been in rehabilitation for the last 10 days due to a left fibular fracture. She was on Lovenox initially then transitioned to Xarelto. Patient is resting comfortably, daughter at bedside. Patient's vital signs are stable. CT scan of brain ordered and pending, x-ray of the left lower leg ordered and pending. CT of the brain is negative for acute findings, hemorrhage. Additionally patient is on anticoagulation, risk of pulmonary embolism/DVT is low. Repeat imaging of the left leg shows fracture of the distal fibula above the lateral malleolus, 2 separate areas without any significant angulation or displacement. Patient will be kept in splint, she is to follow-up with orthopedics as previously scheduled. Patient reports some improvement in her headache after administration of acetaminophen on arrival. Patient was reassured this time that there were no acute findings. Findings were also discussed with patient's daughter who is at bedside. Discussed with patient that the dizziness that she is experiencing could be a side effect of the narcotic pain medication that she has been taking fairly frequently. She was encouraged to try acetaminophen alone for pain since it did seem to help her symptoms in the emergency department today. Diagnosis Primary Impression: Headache Qualified Code: R51 - Nonintractable headache, unspecified chronicity pattern , unspecified headache type Additional Impression: Closed left fibular fracture Qualified Code: S82.832D - Closed fracture of distal end of left fibula with routine healing, unspecified fracture morphology, subsequent encounter Referrals: Orthopaedic Surgeon As scheduled Primary Care Physician 2 days Patient Instructions: Acute Headache (ED), General Instructions Additional Instructions: Follow-up with your primary doctor Follow-up with orthopedic surgeon as scheduled Continue nonweightbearing to left leg Take acetaminophen as needed and as directed for headaches or pain Return to emergency department for any new or worsening symptoms Med/Other Pt SpecificInfo: No Change to Meds Disposition: 03 DISCHARGE TO SNF Condition: Stable Elke [place] Jan 03, 2017 13:10
[2017-01-03] MEDS ORDERED: NEUR100C PO (13:14)
[2017-01-03] MEDS ORDERED: HUMALOG SQ (13:14)
[2017-01-03] MEDS ORDERED: PERC7.5T13 PO (13:14)
[2017-01-03] MEDS ORDERED: CETI10 PO (13:14)
[2017-01-03] MEDS ORDERED: XARE10TA PO (13:14)
[2017-01-03] MEDS ORDERED: ACETAMINOPHEN 325 MG TAB PO ONE (13:15)
--- NOTE | 2017-01-03 13:27 | RADRPT ---
EXAM DATE/TIME: 01/03/2017 13:20 [facility] COMPARISON: No previous studies available for comparison. INDICATIONS : Fall 1 week ago. Left ankle pain. MEDICAL HISTORY : Diabetes mellitus type II. Gastroesophageal reflux disease. Hypertension. Hiatal hernia. SURGICAL HISTORY : Appendectomy. Cholecystectomy. Hysterectomy. ENCOUNTER: Subsequent ACUITY: 1 week PAIN SCORE: 8/10 LOCATION: Left ankle FINDINGS: There is a fracture of the distal fibula above the lateral malleolus 2 separate areas without any sig nificant angulation or displacement. Bony structures are osteopenic. CONCLUSION: Distal fibular fractures. Felecia Portillo MD on January 03, 2017 at 13:25 Board Certified Radiologist. This report was verified electronically.
--- NOTE | 2017-01-03 13:51 | RADRPT ---
EXAM DATE/TIME: 01/03/2017 13:33 [facility] COMPARISON: CT BRAIN W/O CONTRAST, March 06, 2015, 7:51. INDICATIONS : Fell ten days ago now patient is dizzy with shooting pains from shoulder to head , headache. RADIATION DOSE: 36.86 CTDIvol (mGy) MEDICAL HISTORY : Cardiovascular disease. Hypertension. SURGICAL HISTORY : Cholecystectomy. Hysterectomy. ENCOUNTER: Initial ACUITY: 1 day PAIN SCALE: 4/10 LOCATION: cranial TECHNIQUE: Multiple contiguous axial images were obtained of the head. Using automated exposure control and adj ustment of the mA and/or kV according to patient size, radiation dose was kept as low as reasonably a chievable to obtain optimal diagnostic quality images. DICOM format image data is available electro nically for review and comparison. FINDINGS: CEREBRUM: The ventricles are equal and symmetric. No evidence of midline shift, mass lesion, hemorrhage or acu te infarction. No extra-axial fluid collections are seen. POSTERIOR FOSSA: The cerebellum and brainstem are intact. The 4th ventricle is midline. The cerebellopontine angle i s unremarkable. EXTRACRANIAL: The visualized portion of the orbits is intact. SKULL: The calvaria is intact. No evidence of skull fracture. CONCLUSION: No acute intracranial findings Wesley Tobin MD on January 03, 2017 at 13:47 Board Certified Radiologist. This report was verified electronically.
[2017-01-03] MEDS ORDERED: CYCLOBENZAPRINE HCL 10 MG TAB PO ONE (14:45)
== END 2017-01-03 18:22 ==
LOC: NEPE 12:09 → NEDAMB 18:22
DX: R51 Headache (principal); R42 Dizziness and giddiness; R06.02 Shortness of breath; S82.302D Unspecified fracture of lower end of left tibia, subsequent encounter for closed fracture with routine healing; E11.9 Type 2 diabetes mellitus without complications; I10 Essential (primary) hypertension; K21.9 Gastro-esophageal reflux disease without esophagitis; E78.00 Pure hypercholesterolemia, unspecified; W19.XXXD Unspecified fall, subsequent encounter
CPT/HCPCS: 70450; 73590; 99285

== ENCOUNTER 2017-09-05 09:40 | Observation (INO) | payer MEDICARE ==
[~2017-09-05] VITALS: Ht 167.6 cm; Wt 102.0 kg
[2017-09-05] VITALS (7 sets, daily range): BP systolic 154–209; BP diastolic 72–102; PULSE 67–76; RESP 16–18; TEMP 97.8–98.1; O2SAT 95–98
[~2017-09-05 09:40] MED LIST changes: +CETI10 PO; -COMMODE 3-IN-11 MIS; +DOCU1CAP66 PO; +HUMALOG SQ; +NEUR100C PO; -OMEP20TA PO; +OMEP20TA93 PO; +PERC7.5T13 PO; -STOO100C PO; +XARE10TA PO
[2017-09-05] MEDS ORDERED: SODIUM CHLORIDE 0.9% FLUSH 10 ML FLUSH IVF PRN (10:15)
[2017-09-05] MEDS ORDERED: ONDANSETRON HCL 4 MG/2 ML VIAL IVP ONE (10:15)
--- NOTE | 2017-09-05 10:44 | RADRPT ---
EXAM DATE/TIME: 09/05/2017 10:25 [facility] COMPARISON: No previous studies available for comparison. INDICATIONS : Patient states she fell today, right elbow laceration and pain. MEDICAL HISTORY : Hypertension. Cardiovascular disease. SURGICAL HISTORY : Hysterectomy. Cholecystectomy. ENCOUNTER: Initial ACUITY: 1 day PAIN SCORE: 3/10 LOCATION: Right Elbow FINDINGS: Multiple view examination of the right elbow demonstrates no soft tissue swelling, joint effusion, or fracture. The osseous structures are in normal alignment. Bony mineralization is normal. IV cathet er tubing overlies the elbow. CONCLUSION: No acute disease. Clayton Tuttle MD on September 05, 2017 at 10:42 Board Certified Radiologist. This report was verified electronically.
--- NOTE | 2017-09-05 10:45 | RADRPT ---
EXAM DATE/TIME: 09/05/2017 10:30 [facility] COMPARISON: CT BRAIN W/O CONTRAST, January 03, 2017, 13:33. INDICATIONS : Fall today, dizziness. RADIATION DOSE: 56.35 CTDIvol (mGy) MEDICAL HISTORY : Hypertension. diabetes, traumatic brain injury SURGICAL HISTORY : Hysterectomy. ENCOUNTER: Initial ACUITY: 1 day PAIN SCALE: 0/10 LOCATION: Bilateral head TECHNIQUE: Multiple contiguous axial images were obtained of the head. Using automated exposure control and adj ustment of the mA and/or kV according to patient size, radiation dose was kept as low as reasonably a chievable to obtain optimal diagnostic quality images. DICOM format image data is available electro nically for review and comparison. FINDINGS: There is mild ventriculomegaly noted diffusely. Patchy hypodensity in the periventricular white matte r and bilateral centrum semiovale is noted, and unchanged. There are no signs of acute infarct, hemor rhage or mass. There is mild volume loss. CONCLUSION: No acute disease. Clayton Tuttle MD on September 05, 2017 at 10:43 Board Certified Radiologist. This report was verified electronically.
[2017-09-05 11:04] LABS: AUTOMATED NEUTROPHIL # 5.5 TH/MM3 (1.8-7.7); BASOPHIL # 0.1 TH/MM3 (0-0.2); EOSINOPHIL # 0.1 TH/MM3 (0-0.4); EOSINOPHIL % 1.9 % (0.0-4.0); HEMATOCRIT 43.8 % (35.0-46.0); HEMOGLOBIN 15.4 GM/DL (11.6-15.3); LYMPH % 19.3 % (9.0-44.0); LYMPHOCYTE # 1.4 TH/MM3 (1.0-4.8); MEAN CELL VOLUME 86.9 FL (80.0-100.0); MEAN CORPUSCULAR HEMOGLOBIN 30.6 PG (27.0-34.0); MEAN CORPUSCULAR HGB CONC 35.2 % (32.0-36.0); MEAN PLATELET VOLUME 7.6 FL (7.0-11.0); MONO % 3.6 % (0.0-8.0); MONOCYTE # 0.3 TH/MM3 (0-0.9); NEUT % 74.2 % (16.0-70.0); PLATELET COUNT 258 TH/MM3 (150-450); RED BLOOD COUNT 5.03 MIL/MM3 (4.00-5.30); RED CELL DISTRIBUTION WIDTH 14.3 % (11.6-17.2); WHITE BLOOD COUNT 7.5 TH/MM3 (4.0-11.0)
--- NOTE | 2017-09-05 11:13 | PD ---
HPI Chief Complaint: Fall Time Seen by Provider: 09:59 Travel History International Travel<30 days: No Contact w/Intl Traveler<30days: No Traveled to known affect area: No History of Present Illness HPI 77-year-old female arrives to the ER by EMS. She had a fall this morning while in her bathtub. She reports holding onto her walker and falling backwards striking the occipital scalp. She reports loss of consciousness after hitting the ground. She complains of pain in the occipital scalp in the ER as well as pain in the right elbow. Severity mild. Onset sudden. She has been falling lately. Additional complaints include pain in the right elbow associated with minimal bleeding which resolved after application of a dressing. PFSH Past Medical History Arthritis: Yes Autoimmune Disease: No Blood Disorders: No Anxiety: No Depression: No Heart Rhythm Problems: No Cancer: No Cardiovascular Problems: Yes High Cholesterol: Yes Chemotherapy: No Chest Pain: No Congestive Heart Failure: No Cirrhosis: No Cerebrovascular Accident: No Diabetes: Yes Patient Takes Glucophage: Yes Diminished Hearing: No Endocrine: Yes Gastrointestinal Disorders: Yes GERD: Yes Glaucoma: No Genitourinary: Yes (incontinent) Hepatitis: No Hiatal Hernia: Yes Heparin Induced Thrombocytopen: No Hypertension: Yes Immune Disorder: No Kidney Stones: No Musculoskeletal: Yes Neurologic: Yes (STATES BRAIN BLEED FROM FALL 2013) Psychiatric: No Reproductive: No Respiratory: No Migraines: No Myocardial Infarction: No Radiation Therapy: No Renal Failure: No Seizures: No Sickle Cell Disease: No Thyroid Disease: Yes Ulcer: No Tetanus Vaccination: < 5 Years Influenza Vaccination: Yes ?: Not Menopausal: Yes : 1 Para: 1 Past Surgical History Abdominal Surgery: Yes AICD: No Appendectomy: Yes Arteriovenous Shunt: No Cardiac Surgery: No Cholecystectomy: Yes Ear Surgery: Yes (cataracts removed) Endocrine Surgery: No Eye Surgery: No Genitourinary Surgery: No Gynecologic Surgery: Yes Hysterectomy: Yes Insulin Pump: No Joint Replacement: Yes (LEFT KNEE) Neurologic Surgery: No Oral Surgery: No Pacemaker: No Thoracic Surgery: No Other Surgery: Yes (LEFT KNEE) Social History Alcohol Use: No Tobacco Use: No Substance Use: No Allergies-Medications (Allergen,Severity, Reaction): Coded Allergies: bee venom protein (honey bee) (Verified Allergy, Severe, ANAPHYLAXIS, 09/05) Reported Meds & Prescriptions Reported Meds & Active Scripts Active Reported Neurontin (Gabapentin) 100 Mg Cap 100 Mg PO TID Cetirizine (Cetirizine HCl) 10 Mg Tab 10 Mg PO DAILY Ocuvite Lutein (Multiple Vitamins W/ Minerals) 1 Cap Cap 1 Cap PO DAILY Omeprazole 20 Mg Tab 20 Mg PO DAILY Metformin (Metformin HCl) 500 Mg Tab 500 Mg PO BIDPC With meals Metoprolol Tartrate 25 Mg Tab 25 Mg PO DAILY Lisinopril-Hctz 20-12.5 Mg Tab 1 Tab PO DAILY Levothyroxine (Levothyroxine Sodium) 125 Mcg Tab 125 Mcg PO DAILY Atorvastatin (Atorvastatin Calcium) 10 Mg Tab 10 Mg PO DAILY Review of Systems Except as stated in HPI: all other systems reviewed are Neg Physical Exam Narrative GENERAL: 77-year-old female pleasant well-nourished well-developed no acute distress Vital Signs Date Time Temp Pulse Resp B/P (MAP) Pulse Ox O2 Delivery O2 Flow Rate FiO2 09/05/17 09:50 72 17 97 Room Air 09/05/17 09:47 97.8 72 16 190/91 (124) 98 SKIN: Warm and dry. HEAD: Atraumatic. Normocephalic. Occipital scalp appears normal. EYES: Pupils equal and round. No scleral icterus. No injection or drainage. ENT: No nasal bleeding or discharge. Mucous membranes pink and moist. NECK: Trachea midline. No JVD. CARDIOVASCULAR: Regular rate and rhythm. RESPIRATORY: No accessory muscle use. Clear to auscultation. Breath sounds equal bilaterally. GASTROINTESTINAL: Abdomen soft, non-tender, nondistended. Hepatic and splenic margins not palpable. MUSCULOSKELETAL: Approximate 2 cm upon the olecranon of the right elbow. Respiratory otherwise. NEUROLOGICAL: Awake and alert. No obvious cranial nerve deficits. Motor grossly within normal limits. Five out of 5 muscle strength in the arms and legs. Normal speech. PSYCHIATRIC: Appropriate mood and affect; insight and judgment normal. Data Data Last Documented VS Vital Signs Date Time Temp Pulse Resp B/P (MAP) Pulse Ox O2 Delivery O2 Flow Rate FiO2 09/05/17 12:28 16 09/05/17 11:01 209/102 (137) 09/05/17 10:58 98 Room Air 09/05/17 09:50 72 09/05/17 09:47 97.8 Orders Orders Electrocardiogram (09/05/17 10:05) Basic Metabolic Panel (Bmp) (09/05/17 10:05) Complete Blood Count With Diff (09/05/17 10:05) Ckmb (Isoenzyme) Profile (09/05/17 10:05) Troponin I (09/05/17 10:05) Act Partial Throm Time (Ptt) (09/05/17 10:05) Prothrombin Time / Inr (Pt) (09/05/17 10:05) Urinalysis - C+S If Indicated (09/05/17 10:05) Ct Brain W/O Iv Contrast(Rout) (09/05/17 10:05) Ecg Monitoring (09/05/17 10:05) Iv Access Insert/Monitor (09/05/17 10:05) Oximetry (09/05/17 10:05) Ondansetron Inj (Zofran Inj) (09/05/17 10:15) Sodium Chloride 0.9% Flush (Ns Flush) (09/05/17 10:15) Orthostatic Vital Signs (09/05/17 10:05) Elbow, Complete (4 Vws) (09/05/17 ) Acetaminophen (Tylenol) (09/05/17 11:30) CKMB (09/05/17 10:20) CKMB% (09/05/17 10:20) Atorvastatin (Lipitor) (09/06/17 09:00) Cetirizine (Zyrtec) (09/06/17 09:00) Gabapentin (Neurontin) (09/05/17 13:00) Levothyroxine (Synthroid) (09/06/17 09:00) Metoprolol Tartrate (Lopressor) (09/05/17 12:30) Multivit Opth (Ocuvite) (09/06/17 09:00) Pantoprazole (Protonix) (09/06/17 09:00) Lisinopril (Prinivil) (09/05/17 12:45) Hydrochlorothiazide (Hydrodiuril) (09/05/17 12:45) Admit Order (Ed Use Only) (09/05/17 12:51) Labs Laboratory Tests Test 09/05/17 10:20 09/05/17 10:45 White Blood Count 7.5 TH/MM3 Red Blood Count 5.03 MIL/MM3 Hemoglobin 15.4 GM/DL Hematocrit 43.8 % Mean Corpuscular Volume 86.9 FL Mean Corpuscular Hemoglobin 30.6 PG Mean Corpuscular Hemoglobin Concent 35.2 % Red Cell Distribution Width 14.3 % Platelet Count 258 TH/MM3 Mean Platelet Volume 7.6 FL Neutrophils (%) (Auto) 74.2 % Lymphocytes (%) (Auto) 19.3 % Monocytes (%) (Auto) 3.6 % Eosinophils (%) (Auto) 1.9 % Basophils (%) (Auto) 1.0 % Neutrophils # (Auto) 5.5 TH/MM3 Lymphocytes # (Auto) 1.4 TH/MM3 Monocytes # (Auto) 0.3 TH/MM3 Eosinophils # (Auto) 0.1 TH/MM3 Basophils # (Auto) 0.1 TH/MM3 CBC Comment AUTO DIFF Differential Comment AUTO DIFF CONFIRMED Prothrombin Time 10.0 SEC Prothromb Time International Ratio 1.0 RATIO Activated Partial Thromboplast Time 26.1 SEC Blood Urea Nitrogen 15 MG/DL Creatinine 0.82 MG/DL Random Glucose 161 MG/DL Calcium Level 9.1 MG/DL Sodium Level 137 MEQ/L Potassium Level 3.9 MEQ/L Chloride Level 101 MEQ/L Carbon Dioxide Level 27.9 MEQ/L Anion Gap 8 MEQ/L Estimat Glomerular Filtration Rate 67 ML/MIN Total Creatine Kinase 113 U/L Creatine Kinase MB 5.0 NG/ML Troponin I LESS THAN 0.02 NG/ML Urine Color YELLOW Urine Turbidity CLEAR Urine pH 5.0 Urine Specific [place] 1.011 Urine Protein NEG mg/dL Urine Glucose (UA) NEG mg/dL Urine Ketones NEG mg/dL Urine Occult Blood NEG Urine Nitrite NEG Urine Bilirubin NEG Urine Urobilinogen LESS THAN 2.0 MG/DL Urine Leukocyte Esterase TRACE Urine RBC 1 /hpf Urine WBC 1 /hpf Urine Squamous Epithelial Cells <1 /hpf Urine Bacteria RARE /hpf Microscopic Urinalysis Comment CULT NOT INDICATED MDM Medical Decision Making Medical Screen Exam Complete: Yes Emergency Medical Condition: Yes Differential Diagnosis Intracranial hemorrhage, arrhythmia, electrolyte imbalance Narrative Course CBC & BMP Diagram 09/05/17 10:20 Calcium Level 9.[address] 09/05/17 1005 Signed Impressions: Service Date/Time: Tuesday, September 05, 2017 10:30 - CONCLUSION: No acute disease. Clayton Tuttle MD Elbow X-Ray 09/05/17 0000 Signed Impressions: Service Date/Time: Tuesday, September 05, 2017 10:25 - CONCLUSION: No acute disease. Clayton Tuttle MD EKG shows a sinus rhythm with no ischemic injury pattern or preexcitation pattern or irregularity, rate 67 normal axis intervals Patient will be admitted for evaluation of fall w recurrent falls. Primary care was concerned about obtaining an MRI. The case was discussed with Dr. Melendez of [facility]. Diagnosis Primary Impression: Impaired gait Additional Impressions: Impaired activities of daily living Fall Qualified Codes: W19.XXXA - Unspecified fall, initial encounter LOC (loss of consciousness) Admitting Information Admitting Physician Requests: Observation Luis Collins MD Sep 05, 2017 11:13
[2017-09-05 11:30] LABS: BICARBONATE 27.9 MEQ/L (21.0-32.0); BLOOD UREA NITROGEN 15 MG/DL (7-18); CALCIUM 9.1 MG/DL (8.5-10.1); CHLORIDE 101 MEQ/L (98-107); CREATININE 0.82 MG/DL (0.50-1.00); GLOMERULAR FILTRATION RATE 67 ML/MIN (>89); GLUCOSE,RANDOM 161 MG/DL (74-106); SODIUM (NA) 137 MEQ/L (136-145)
[2017-09-05] MEDS ORDERED: ACETAMINOPHEN 325 MG TAB PO ONE (11:30)
[2017-09-05 11:35] LABS: TROPONIN I LESS THAN 0.02 NG/ML (0.02-0.05)
[2017-09-05 11:46] LABS: BACTERIA, URINE RARE /hpf; BILIRUBIN, URINE NEG (NEG); BLOOD, URINE NEG (NEG); GLUCOSE,URINE NEG (NEG); KETONE, URINE NEG (NEG); NITRITE,URINE NEG (NEG); SQUAMOUS EPITHELIAL CELL URINE <1 /hpf (0-5); URINE COLOR YELLOW (YELLW/STRAW); URINE LEUKOCYTE ESTERASE TRACE (NEG)
[2017-09-05] MEDS ORDERED: NON-FORMULARY DRUG (Lisinopril-Hctz 1 TAB) PO SCH (12:30)
[2017-09-05] MEDS ORDERED: GADODIAMIDE PF 287 MG/ML 20 ML VIAL (for RAD MRI) IV PUSH ONE (12:54)
--- NOTE | 2017-09-05 13:08 | HHI.HP ---
[facility] Davey Chavez MD Admission Diagnosis Syncope, Fall, Elbow Abrasion/Superficial Laceration Diagnoses: Chief Complaint: Dizziness, falls Travel History International Travel<30 Days: No Contact w/Intl Traveler <30 Da: No Traveled to Known Affected Are: No History of Present Illness The patient is a 77-year-old female with a past medical history of diabetes and subarachnoid hemorrhage who is presenting to the hospital following a fall. The patient says this is the second fall she has had this week. She said that on Tuesday she fell backwards while trying to close the shutters and she hurt her left shoulder and hand. She said that today she was using her walker in the shower but somehow she fell down. She is unsure of what exactly caused her to fall down. She hurt her left shoulder and head during her fall. She says she has a history of a brain bleed. She says since then she has chronically had problems with dizziness and headaches. She says the headache is located in the back of her head and radiates to her right ear. She rates the pain as a 5 out of 10 in severity. She says it comes and goes and is unsure of what brings it on and makes it go away. She says she takes Advil for pain control. She says she has a MACHINERY ENGINEER who helps her at the house 3 times a week. She still goes to physical therapy. She said she has a tear in her left shoulder and was due for an MRI. She also said her primary care wanted MRI of her brain because of her headaches and dizziness. Review of Systems Except as stated in HPI: all other systems reviewed are Neg Past Family Social History Past Medical History Hypertension Diabetes mellitus Hypothyroidism GERD Subarachnoid hemorrhage in 2013 Past Surgical History Hysterectomy Left knee replacement Allergies: Coded Allergies: bee venom protein (honey bee) (Verified Allergy, Severe, ANAPHYLAXIS, 09/05) Active Ordered Medications Current Medications Medications (Trade) Dose Ordered Sig/Mignon Route Start Time Stop Time Status Last Admin (NS Flush) 2 ml UNSCH PRN IVF 09/05/17 10:15 (Lipitor) 10 mg DAILY PO 3/13/18 09:00 (ZyrTEC) 10 mg DAILY PO 09/06/17 09:00 (Neurontin) 100 mg TID PO 09/05/17 13:00 (Synthroid) 125 mcg DAILY PO 09/06/17 09:00 (Lopressor) 25 mg DAILY PO 09/05/17 12:30 (Ocuvite) 1 tab DAILY PO 09/06/17 09:00 (Protonix) 20 mg DAILY PO 09/06/17 09:00 (Prinivil) 20 mg DAILY PO 09/05/17 12:45 (Hydrodiuril) 12.5 mg DAILY PO 09/05/17 12:45 Sodium Chloride 1,000 ml @ 100 mls/hr Q10H IV 09/05/17 12:57 09/05/17 22:56 UNV (NS Flush) 2 ml UNSCH PRN IV FLUSH 09/05/17 13:00 UNV (NS Flush) 2 ml BID IV FLUSH 09/05/17 21:00 UNV (Tylenol) 650 mg Q4H PRN PO 09/05/17 13:00 UNV (Zofran Inj) 4 mg Q6H PRN IVP 09/05/17 13:00 UNV (Tylenol) 650 mg Q6H PRN PO 09/05/17 13:00 UNV (Roxicodone) 5 mg Q4H PRN PO 09/05/17 13:00 UNV (Narcan Inj) 0.4 mg UNSCH PRN IV PUSH 09/05/17 13:00 UNV (Linda-Colace) 1 tab BID PO 09/05/17 21:00 UNV Family History The patient denies pertinent family history Social History The patient does not smoke or drink. Physical Exam Vital Signs Vital Signs Date Time Temp Pulse Resp B/P (MAP) Pulse Ox O2 Delivery O2 Flow Rate FiO2 09/05/17 11:01 209/102 (137) 09/05/17 11:00 192/87 (122) 09/05/17 10:58 188/101 (130) 09/05/17 10:58 98 Room Air 09/05/17 09:50 72 17 97 Room Air 09/05/17 09:47 97.8 72 16 190/91 (124) 98 Physical Exam GENERAL: Resting comfortably. SKIN: Warm and dry. HEAD: Atraumatic. Normocephalic. EYES: Pupils equal and round. No scleral icterus. No injection or drainage. ENT: No nasal bleeding or discharge. Mucous membranes pink and moist. NECK: Trachea midline. No JVD. CARDIOVASCULAR: Regular rate and rhythm. RESPIRATORY: No accessory muscle use. Clear to auscultation. Breath sounds equal bilaterally. GASTROINTESTINAL: Abdomen soft, non-tender, nondistended. Hepatic and splenic margins not palpable. MUSCULOSKELETAL: Approximate 2 cm laceration on the olecranon of the right elbow. Decreased ROM of LUE s/t pain. NEUROLOGICAL: Awake and alert. No obvious cranial nerve deficits. 4/5 in the LLE, 3/5 in the RLE. 5/5 strength in the RUE. Normal speech. PSYCHIATRIC: Appropriate mood and affect; insight and judgment normal. Laboratory Laboratory Tests Test 09/05/17 10:20 09/05/17 10:45 White Blood Count 7.5 Red Blood Count 5.03 Hemoglobin 15.4 Hematocrit 43.8 Mean Corpuscular Volume 86.9 Mean Corpuscular Hemoglobin 30.6 Mean Corpuscular Hemoglobin Concent 35.2 Red Cell Distribution Width 14.3 Platelet Count 258 Mean Platelet Volume 7.6 Neutrophils (%) (Auto) 74.2 Lymphocytes (%) (Auto) 19.3 Monocytes (%) (Auto) 3.6 Eosinophils (%) (Auto) 1.9 Basophils (%) (Auto) 1.0 Neutrophils # (Auto) 5.5 Lymphocytes # (Auto) 1.4 Monocytes # (Auto) 0.3 Eosinophils # (Auto) 0.1 Basophils # (Auto) 0.1 CBC Comment AUTO DIFF Differential Comment AUTO DIFF CONFIRMED Prothrombin Time 10.0 Prothromb Time International Ratio 1.0 Activated Partial Thromboplast Time 26.1 Blood Urea Nitrogen 15 Creatinine 0.82 Random Glucose 161 Calcium Level 9.1 Sodium Level 137 Potassium Level 3.9 Chloride Level 101 Carbon Dioxide Level 27.9 Anion Gap 8 Estimat Glomerular Filtration Rate 67 Total Creatine Kinase 113 Creatine Kinase MB 5.0 Troponin I LESS THAN 0.02 Urine Color YELLOW Urine Turbidity CLEAR Urine pH 5.0 Urine Specific [place] 1.011 Urine Protein NEG Urine Glucose (UA) NEG Urine Ketones NEG Urine Occult Blood NEG Urine Nitrite NEG Urine Bilirubin NEG Urine Urobilinogen LESS THAN 2.0 Urine Leukocyte Esterase TRACE Urine RBC 1 Urine WBC 1 Urine Squamous Epithelial Cells <1 Urine Bacteria RARE Microscopic Urinalysis Comment CULT NOT INDICATED Result Diagram: 09/05/17 1020 09/05/17 1020 Imaging Last Impressions Head CT 09/05/17 1005 Signed Impressions: Service Date/Time: Tuesday, September 05, 2017 10:30 - CONCLUSION: No acute disease. Clayton Tuttle MD Elbow X-Ray 09/05/17 0000 Signed Impressions: Service Date/Time: Tuesday, September 05, 2017 10:25 - CONCLUSION: No acute disease. Clayton Tuttle MD Caprincaleb VTE Risk Assessment Caprini VTE Risk Assessment: Mod/High Risk (score >= 2) Caprini Risk Assessment Model Point Value = 1 Point Value = 2 Point Value = 3 Point Value = 5 Age 41-60 Minor surgery BMI > 25 kg/m2 Swollen legs Varicose veins or History of unexplained or recurrent spontaneous Oral contraceptives or hormone replacement Sepsis (< 1 month) Serious lung disease, including pneumonia (< 1 month) Abnormal pulmonary function Acute myocardial infarction Congestive heart failure (< 1 month) History of inflammatory bowel disease Medical patient at bed rest Age 61-74 Arthroscopic surgery Major open surgery (> 45 min) Laparoscopic surgery (> 45 min) Malignancy Confined to bed (> 72 hours) Immobilizing plaster cast Central venous access Age >= 75 History of VTE Family history of VTE Factor V Leiden Prothrombin [id number] Lupus anticoagulant Anticardiolipin antibodies Elevated serum homocysteine Heparin-induced thrombocytopenia Other congenital or acquired thrombophilia Stroke (< 1 month) Elective arthroplasty Hip, pelvis, or leg fracture Acute spinal cord injury (< 1 month) Prophylaxis Regimen Total Risk Factor Score Risk Level Prophylaxis Regimen 0-1 Low Early ambulation 2 Moderate Order ONE of the following: *Sequential Compression Device (SCD) *Heparin 5000 units SQ BID 3-4 Higher Order ONE of the following medications: *Heparin 5000 units SQ TID *Enoxaparin/Lovenox 40 mg SQ daily (WT < 150 kg, CrCl > 30 mL/min) *Enoxaparin/Lovenox 30 mg SQ daily (WT < 150 kg, CrCl > 10-29 mL/min) *Enoxaparin/Lovenox 30 mg SQ BID (WT < 150 kg, CrCl > 30 mL/min) AND/OR *Sequential Compression Device (SCD) 5 or more Highest Order ONE of the following medications: *Heparin 5000 units SQ TID (Preferred with Epidurals) *Enoxaparin/Lovenox 40 mg SQ daily (WT < 150 kg, CrCl > 30 mL/min) *Enoxaparin/Lovenox 30 mg SQ daily (WT < 150 kg, CrCl > 10-29 mL/min) *Enoxaparin/Lovenox 30 mg SQ BID (WT < 150 kg, CrCl > 30 mL/min) AND *Sequential Compression Device (SCD) Assessment and Plan Assessment and Plan Falls/ headache/ dizziness The pt had a SAH in 2013 and she says her symptoms started around that time. She has been falling more frequently and did hit her head on the day of admission. She has a headache in the back of her head and accompanying dizziness. CT of the head was unremarkable. - MRI brain pending. - neurology consult requested. - PT/ OT. - pain control with a bowel regimen. Hypertensive urgency SBP was over 200 in the ED. - resume home medications. - clonidine as needed. Left rotator cuff tear The pt says she has a chronic left rotator cuff teat that has been made worse by her falls this week. Her PCP was supposedly going to order an MRI. - MRI of the left shoulder pending. - PT/ OT. - pain control with a bowel regimen. Laceration On the right elbow. Too small for stitches per ED physician. - wound care nurse consult if needed. DM On metformin as an outpt. - hold metformin. - insulin sliding scale. Add long acting insulin as needed. PPx: SCDs Discussed Condition With Pt, Forrest Morgan DO Sep 05, 2017 13:08
[2017-09-05] MEDS ORDERED: NALOXONE HCL 0.4 MG/ML AMP IV PUSH PRN (13:15)
[2017-09-05] MEDS ORDERED: ONDANSETRON HCL 4 MG/2 ML VIAL IVP PRN (13:15)
[2017-09-05] MEDS: HYDROCHLOROTHIAZIDE 25 MG TAB PO SCH (13:15)
[2017-09-05] MEDS ORDERED: SODIUM CHLOR 0.9% 1000 ML INJ 1,000 ML IV SCH (13:15)
[2017-09-05] MEDS ORDERED: ACETAMINOPHEN 325 MG TAB PO PRN (13:15)
[2017-09-05] MEDS: GABAPENTIN 100 MG CAP PO SCH ×2 (13:15→17:41)
[2017-09-05] MEDS ORDERED: SODIUM CHLORIDE 0.9% FLUSH 10 ML FLUSH IV FLUSH PRN (13:15)
[2017-09-05] MEDS: METOPROLOL TARTRATE 25 MG TAB PO SCH (13:15)
[2017-09-05] MEDS: LISINOPRIL 20 MG TAB PO SCH (13:16)
[2017-09-05] MEDS ORDERED: cloNIDine HCL 0.1 MG TAB PO PRN (13:30)
--- NOTE | 2017-09-05 14:33 | MB ---
cc: Carmen Bruner MD DATE OF CONSULT: 09/05/2017 REASON FOR CONSULTATION: Dizziness, vertigo, falls. HISTORY: This is a pleasant 77-year-old woman who has a history of diabetes and subarachnoid hemorrhage who comes in after a fall. She fell in the shower with her walker backwards. She had a second fall this week again, once trying to close the shutters to the window and hurt her left shoulder. She had no passing out. She had some dizziness and chronic headaches. Her caregiver HEEL BLACKER states that she uses a walker. She has different types of walkers, but she is flexed forward when she uses it and she does tend to shuffle. She has a history as stated. The subarachnoid was in 2013. She has had a hysterectomy and left knee replacement. ALLERGIES: BEE VENOM. HOME MEDICINES: Her home medicines are Lipitor. Zyrtec, Neurontin, Synthroid, Lopressor, Ocuvite, Protonix, Prinivil, HydroDIURIL, Roxicodone. FAMILY HISTORY: Noncontributory. SOCIAL HISTORY: She does not smoke or drink. PHYSICAL EXAM: VITAL SIGNS: Temperature 97.8, pulse 67, respiratory rate 16, blood pressure 154/86. NECK: Supple. No appreciable bruit. HEART: Regular. NEURO: She is awake and alert. She is fluent. Oriented. Pupils reactive. Face symmetrical. Tongue midline. She has a good animated face. There is no tremor. No rigidity. No significant weakness in the upper extremities. She does have gauze from laceration of the elbow. Motor green, she can lift her legs to antigravity. She is at best a 4/5. Toes withdrawals. Cerebellar is normal. Sensory seems to be normal to light touch and temperature. Gait is withheld. LABS: Reviewed. IMAGING: CT of the head did not show anything acute. In her left elbow, there is no acute disease. No fracture. IMPRESSION: Dizziness, some possible vertigo appeared to be basilar insufficiency, falls. RECOMMENDATIONS: Recommend getting an MRI of the brain. We will do a [place] [facility] [place] and a carotid ultrasound. I am also going to get an EEG, have PT assess her and dependent on findings, further recommendations will be made. MD CHARO Reynolds , 02:19 PM , 02:31 PM
--- NOTE | 2017-09-05 17:26 | RADRPT ---
EXAM DATE/TIME: 09/05/2017 14:42 [facility] COMPARISON: No previous studies available for comparison. INDICATIONS : Cerebrovascular accident. MEDICAL HISTORY : Hypertension. diabetes, traumatic brain injury SURGICAL HISTORY : Hysterectomy. ENCOUNTER: Initial ACUITY: 1 day PAIN SCORE: 0/10 LOCATION: Bilateral neck PEAK SYSTOLIC VELOCITIES (cm/sec): ICA/CCA RATIO: Right: 1.2 Left: 0.8 ICA: Right: 60 Left: 40 CCA: Right: 52 Left: 51 ECA: Right: 74 Left: 61 VERTEBRAL: Right: 35 antegrade Left: 30 antegrade Elevated flow velocities and ICA/CCA ratios have been found to correlate with increased degrees of vessel stenosis, calculated as percentage of diameter relative to a normal segment of distal ICA/CCA FINDINGS: RIGHT CAROTID: No significant stenosis is visualized. The waveforms are within normal limits. LEFT CAROTID: No significant stenosis is visualized. The waveforms are within normal limits. VERTEBRAL ARTERIES: Antegrade flow is seen in both vertebral arteries. MISCELLANEOUS: None. CONCLUSION: 1. No evidence for hemodynamically significant stenosis. 2. Antegrade flow in the bilateral vertebral arteries. Clayton Tuttle MD on September 05, 2017 at 17:24 Board Certified Radiologist. This report was verified electronically.
--- NOTE | 2017-09-05 18:50 | RADRPT ---
EXAM DATE/TIME: 09/05/2017 17:48 [facility] COMPARISON: No previous studies available for comparison. INDICATIONS : Pain. MEDICAL HISTORY : Diabetes mellitus type 2. SURGICAL HISTORY : Appendectomy. Total knee replacement, left. Cholecystectomy. ENCOUNTER: Initial ACUITY: 2 day PAIN SCORE: 5/10 LOCATION: Left shoulder TECHNIQUE: Multiplanar, multisequence MRI examination was performed without contrast. FINDINGS: There is a large full-thickness rotator cuff tear that involves essentially all of the supraspinatus and infraspinatus. Torn fibers are retracted medially almost to the glenoid. There is cuff tear-assoc iated narrowing of the subacromial space, with the humeral head nearly abutting the undersurface of t he acromion in the imaged position. Both bones have mild, chronic remodeling. There is moderate atrop hy of the supraspinatus and infraspinatus muscle bellies. Moderate glenohumeral joint osteoarthritis and with reactive, mostly glenoid side marrow edema. There is chronic/degenerative tearing tearing focally of the superior labrum. Long head biceps tendon is i ntact. Type II acromion. No significant subacromial spurring demonstrated. There is moderate osteoarthritis of the acromioclavicular joint. CONCLUSION: 1. Large full-thickness rotator cuff tear involving essentially all of supraspinatus and infraspinatu s. Atrophy of both muscle bellies and also cuff tear-associated narrowing of the subacromial space. 2. 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 3. Focal SLAP, most likely chronic/degenerative. Wesley Penn MD on September 05, 2017 at 18:44 Board Certified Radiologist. This report was verified electronically.
--- NOTE | 2017-09-05 18:58 | RADRPT ---
EXAM DATE/TIME: 09/05/2017 17:48 [facility] COMPARISON: No previous studies available for comparison. INDICATIONS : CVA. MEDICAL HISTORY : Diabetes mellitus type 2. SURGICAL HISTORY : Appendectomy. Cholecystectomy. Total knee replacement, left. ENCOUNTER: Initial ACUITY: 2 day PAIN SCORE: 0/10 LOCATION: Head Please note a normal MRA of the brain does not entirely exclude the possibility of a small aneurysm, nor the possibility of distal intracranial vessel disease. TECHNIQUE: 3D time of flight MRA was performed. Source images, multiplanar STS MIP, and 3D volume MIP reconstru ctions were reviewed. FINDINGS: There is excellent visualization of the major intracranial arteries out to the second-order branch ve ssels. There is no evidence for aneurysm, vessel truncation or stenosis, and no evidence for vascula r malformation. Mild developmental asymmetry of the A1 segments, left larger than right. CONCLUSION: No acute abnormality of the intracranial arteries. Wesley Penn MD on September 05, 2017 at 18:55 Board Certified Radiologist. This report was verified electronically.
--- NOTE | 2017-09-05 19:13 | RADRPT ---
EXAM DATE/TIME: 09/05/2017 17:48 [facility] COMPARISON: CT BRAIN W/O CONTRAST, September 05, 2017, 10:30. CT BRAIN W/O CONTRAST, January 03, 2017, 13:33. INDICATIONS : Cephalgia. CONTRAST: 20 cc Omniscan (gadodiamide) IV MEDICAL HISTORY : Diabetes mellitus type 2. SURGICAL HISTORY : Cholecystectomy. Appendectomy. Total knee replacement, left. ENCOUNTER: Initial ACUITY: 2 day PAIN SCORE: 4/10 LOCATION: head TECHNIQUE: Multiplanar, multisequence MRI of the brain was performed both prior to and following the administrat ion of paramagnetic contrast. FINDINGS: CEREBRUM: The ventricles are normal for age. No evidence of midline shift, mass lesion, hemorrhage or acute in farction. No extraaxial fluid collections are seen. The pituitary gland and suprasellar cistern are normal in configuration. There is atrophy. WHITE MATTER: Moderate to severe, chronic flair signal abnormality seen in the periventricular white matter of both vertebral hemispheres. POSTERIOR FOSSA: The cerebellum and brainstem are intact. The 4th ventricle is midline. The cerebellopontine angle is unremarkable. The cerebellar tonsils are normal in position. DIFFUSION IMAGING: No focal areas of restricted diffusion are seen. No evidence of acute infarction. EXTRACRANIAL: The visualized portions of the orbits and paranasal sinuses are unremarkable. POST-CONTRAST: No abnormal areas of parenchymal or dural enhancement. No evidence of blood-brain barrier breakdown. CONCLUSION: 1. No bleed, acute infarct or other acute intracranial abnormality. 2. Atrophy and chronic white matter changes. Wesley Penn MD on September 05, 2017 at 19:10 Board Certified Radiologist. This report was verified electronically.
[2017-09-05] MEDS: ACETAMINOPHEN 325 MG TAB PO PRN (20:33)
[2017-09-05] MEDS: SODIUM CHLORIDE 0.9% FLUSH 10 ML FLUSH IV FLUSH SCH (20:34)
[2017-09-05] MEDS: DOCUSATE SODIUM 50 MG/SENNA 8.6 MG TAB PO SCH (20:34)
[2017-09-06] MEDS ORDERED: MELATONIN 5 MG TAB PO ONE
[2017-09-06 05:58] VITALS: BP 179/83; PULSE 91; RESP 18; TEMP 98; O2SAT 97
[2017-09-06 07:44] LABS: AUTOMATED NEUTROPHIL # 5.5 TH/MM3 (1.8-7.7); BASOPHIL # 0.1 TH/MM3 (0-0.2); BASOPHIL % 0.9 % (0.0-2.0); EOSINOPHIL # 0.2 TH/MM3 (0-0.4); EOSINOPHIL % 2.5 % (0.0-4.0); HEMATOCRIT 44.8 % (35.0-46.0); HEMOGLOBIN 15.4 GM/DL (11.6-15.3); LYMPH % 21.4 % (9.0-44.0); LYMPHOCYTE # 1.7 TH/MM3 (1.0-4.8); MEAN CELL VOLUME 86.2 FL (80.0-100.0); MEAN CORPUSCULAR HEMOGLOBIN 29.7 PG (27.0-34.0); MEAN CORPUSCULAR HGB CONC 34.5 % (32.0-36.0); MEAN PLATELET VOLUME 7.6 FL (7.0-11.0); MONO % 4.4 % (0.0-8.0); MONOCYTE # 0.3 TH/MM3 (0-0.9); NEUT % 70.8 % (16.0-70.0); PLATELET COUNT 263 TH/MM3 (150-450); RED CELL DISTRIBUTION WIDTH 14.1 % (11.6-17.2); WHITE BLOOD COUNT 7.7 TH/MM3 (4.0-11.0)
[2017-09-06 08:03] LABS: BICARBONATE 30.6 MEQ/L (21.0-32.0); CALCIUM 9.8 MG/DL (8.5-10.1); CREATININE 0.84 MG/DL (0.50-1.00)
[2017-09-06 08:45] VITALS: BP 159/93; PULSE 79; RESP 16; TEMP 97.8; O2SAT 96
[2017-09-06] MEDS: LEVOTHYROXINE SODIUM 125 MCG TAB PO SCH (09:03)
[2017-09-06] MEDS: ATORVASTATIN 10 MG TAB PO SCH (09:04)
[2017-09-06] MEDS: CETIRIZINE HCL 10 MG TAB PO SCH (09:04)
[2017-09-06] MEDS: LISINOPRIL 20 MG TAB PO SCH (09:04)
[2017-09-06] MEDS: PANTOPRAZOLE SOD 20 MG DELAYED RELEASE TAB PO SCH (09:04)
[2017-09-06] MEDS: GABAPENTIN 100 MG CAP PO SCH ×4 (09:04→17:34)
[2017-09-06] MEDS: METOPROLOL TARTRATE 25 MG TAB PO SCH (09:04)
[2017-09-06] MEDS: HYDROCHLOROTHIAZIDE 25 MG TAB PO SCH (09:04)
[2017-09-06] MEDS: SODIUM CHLORIDE 0.9% FLUSH 10 ML FLUSH IV FLUSH SCH ×2 (09:05→21:11)
[2017-09-06] MEDS: DOCUSATE SODIUM 50 MG/SENNA 8.6 MG TAB PO SCH ×2 (09:08→21:11)
--- NOTE | 2017-09-06 09:23 | HHI.DS ---
Discharge Summary Admission Date Sep 05, 2017 at 12:53 Discharge Date: Sep 07, 2017 Admitting Diagnosis Syncope, Fall, Elbow Abrasion/Superficial Laceration (1) Ileus ICD Code: K56.7 - Ileus Status: Acute (2) Dyslipidemia ICD Code: E78.4 - Dyslipidemia Status: Chronic (3) T2DM (type 2 diabetes mellitus) ICD Code: E11.9 - T2DM (type 2 diabetes mellitus) Status: Chronic (4) Vascular dementia ICD Code: F01.50 - Vascular dementia Status: Acute (5) Depression ICD Code: F32.9 - Depression Status: Acute (6) Subarachnoid hemorrhage ICD Code: I60.9 - Subarachnoid hemorrhage Status: Acute (7) Rotator cuff injury ICD Code: S46.009A - Rotator cuff injury Status: Chronic (8) Cognitive impairment ICD Code: F09 - Cognitive impairment Status: Acute (9) Skin tear of elbow without complication ICD Code: S51.019A - Laceration without foreign body of unspecified elbow, initial encounter Status: Acute (10) Hypothyroidism ICD Code: E03.9 - Hypothyroidism Status: Chronic (11) Hypertension ICD Code: I10 - Hypertension Status: Chronic (12) Vestibular disorder ICD Code: H81.90 - Vestibular disorder Status: Acute Procedures none Brief History - From Admission The patient is a 77-year-old female with a past medical history of diabetes and subarachnoid hemorrhage who is presenting to the hospital following a fall. The patient says this is the second fall she has had this week. She said that on Tuesday she fell backwards while trying to close the shutters and she hurt her left shoulder and hand. She said that today she was using her walker in the shower but somehow she fell down. She is unsure of what exactly caused her to fall down. She hurt her left shoulder and head during her fall. She says she has a history of a brain bleed. She says since then she has chronically had problems with dizziness and headaches. She says the headache is located in the back of her head and radiates to her right ear. She rates the pain as a 5 out of 10 in severity. She says it comes and goes and is unsure of what brings it on and makes it go away. She says she takes Advil for pain control. She says she has a [employer] who helps her at the house 3 times a week. She still goes to physical therapy. She said she has a tear in her left shoulder and was due for an MRI. She also said her primary care wanted MRI of her brain because of her headaches and dizziness. CBC/BMP: 09/06/17 0545 09/06/17 0545 Significant Findings Laboratory Tests Test 09/05/17 10:20 09/05/17 10:45 09/06/17 05:45 Hemoglobin 15.4 GM/DL (11.6-15.3) 15.4 GM/DL (11.6-15.3) Neutrophils (%) (Auto) 74.2 % (16.0-70.0) 70.8 % (16.0-70.0) Random Glucose 161 MG/DL (74-106) 164 MG/DL (74-106) Estimat Glomerular Filtration Rate 67 ML/MIN (>89) 66 ML/MIN (>89) Creatine Kinase MB 5.0 NG/ML (0.5-3.6) Troponin I LESS THAN 0.02 NG/ML Thyroid Stimulating Hormone 3rd Gen 5.790 uIU/ML (0.358-3.740) Urine Leukocyte Esterase TRACE (NEG) Urine Bacteria RARE /hpf (NONE) Potassium Level 3.3 MEQ/L (3.5-5.1) Imaging Last Impressions Head CT 09/05/17 1005 Signed Impressions: Service Date/Time: Tuesday, September 05, 2017 10:30 - CONCLUSION: No acute disease. Clayton Tuttle MD Shoulder MRI 09/05/17 0000 Signed Impressions: Service Date/Time: Tuesday, September 05, 2017 17:48 - CONCLUSION: 1. Large full-thickness rotator cuff tear involving essentially all of supraspinatus and infraspinatus. Atrophy of both muscle bellies and also cuff tear-associated narrowing of the subacromial space. 2. 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 3. Focal SLAP, most likely chronic/degenerative. Wesley Penn MD Head Magnetic Resonance Angiography 09/05/17 0000 Signed Impressions: Service Date/Time: Tuesday, September 05, 2017 17:48 - CONCLUSION: No acute abnormality of the intracranial arteries. Wesley Penn MD Elbow X-Ray 09/05/17 0000 Signed Impressions: Service Date/Time: Tuesday, September 05, 2017 10:25 - CONCLUSION: No acute disease. Clayton Tuttle MD Carotid Artery Ultrasound 09/05/17 0000 Signed Impressions: Service Date/Time: Tuesday, September 05, 2017 14:42 - CONCLUSION: 1. No evidence for hemodynamically significant stenosis. 2. Antegrade flow in the bilateral vertebral arteries. Clayton Tuttle MD Brain MRI 09/05/17 0000 Signed Impressions: Service Date/Time: Tuesday, September 05, 2017 17:48 - CONCLUSION: 1. No bleed, acute infarct or other acute intracranial abnormality. 2. Atrophy and chronic white matter changes. Wesley Penn MD PE at Discharge GENERAL: Resting comfortably. Doesn't appear in acute distress. CARDIOVASCULAR: Regular rate and rhythm. RESPIRATORY: No accessory muscle use. Clear to auscultation. Breath sounds equal bilaterally. GASTROINTESTINAL: Abdomen soft, non-tender, nondistended. Hepatic and splenic margins not palpable. MUSCULOSKELETAL: Approximate 2 cm laceration on the olecranon of the right elbow. Decreased ROM of LUE s/t pain. NEUROLOGICAL: Awake and alert. No obvious cranial nerve deficits. 4/5 in the LLE, 3/5 in the RLE. 5/5 strength in the RUE. Normal speech. PSYCHIATRIC: Appropriate mood and affect; insight and judgment normal. Hospital Course Falls/ headache/ dizziness The pt had a SAH in 2013 and she says her symptoms started around that time. She has been falling more frequently and did hit her head on the day of admission. She has a headache in the back of her head and accompanying dizziness. CT of the head was unremarkable. MRI brain reviewed and no acute changes EEG is normal Carotid US normal Neurology consult appreciate recommendations PT/ OT. Pain control with a bowel regimen. Hypertensive urgency SBP was over 200 in the ED. Resume home medications. Clonidine as needed. Large Left rotator cuff tear Intractable pain The pt says she has a chronic left rotator cuff teat that has been made worse by her falls this week. Her PCP was supposedly going to order an MRI. MRI of the left shoulder reviewed with large rotator cuff tear . Consult her ortho Dr Lucas, spoke with Dr Lucas who reviewed the MRI and recommends follow up as OP, as non emergent management at this time required. PT/ OT. Pain control add IV dilaudid for intractable pain, continue with bowel regimen. However patient did not require any IV pain meds while in the hospital Laceration On the right elbow. Too small for stitches per ED physician. Wound care nurse consult if needed. DM 2 On metformin as an outpt. Hold metformin. Insulin sliding scale. Add long acting insulin as needed. Vit D deficiency started ergocalciferol. PPx: SCDs Discussed Condition With Patient, nurse, family by phone. PT recommends rehab. However patient is refusing rehab. Patient improved, discharged home with home health in stable condition to follow up as PP with PCP and consultants. I advised patient to discuss option with her PCP to go to rehab if she wishes. Pt Condition on Discharge: Stable Discharge Disposition: Disch w/ Home Health Serv Discharge Time: > 30 minutes Discharge Instructions DIET: Follow Instructions for: Heart Healthy Diet Activities you can perform: Regular-No Restrictions Follow up Referrals: Neurology - 1 Week Orthopedics - 2 Weeks PCP Follow-up - 2-3 Days New Medications: Ergocalciferol (Ergocalciferol) 50,000 Unit Cap 77789 UNITS PO Q7D for Nutritional Supplement, #30 CAP 0 Refills Continued Medications: Atorvastatin (Atorvastatin) 10 Mg Tab 10 MG PO DAILY for Cholesterol Management, #30 TAB 0 Refills Cetirizine (Cetirizine) 10 Mg Tab 10 MG PO DAILY for Allergies, TAB 0 Refills Gabapentin (Neurontin) 100 Mg Cap 100 MG PO TID, #90 CAP 0 Refills Levothyroxine (Levothyroxine) 125 Mcg Tab 125 MCG PO DAILY for Thyroid, #30 TAB 0 Refills Lisinopril-Hctz (Lisinopril-Hctz) 20-12.5 Mg Tab 1 TAB PO DAILY for Blood Pressure Management, #30 TAB 0 Refills Metformin (Metformin) 500 Mg Tab 500 MG PO BIDPC for Blood Sugar Management, #60 TAB 0 Refills With meals Metoprolol Tartrate (Metoprolol Tartrate) 25 Mg Tab 25 MG PO DAILY, #30 TAB 0 Refills Multiple Vitamins W/ Minerals (Ocuvite Lutein) 1 Cap Cap 1 CAP PO DAILY Omeprazole (Omeprazole) 20 Mg Tab 20 MG PO DAILY, #30 TAB 0 Refills Dejah Britton MD Sep 06, 2017 09:23
[2017-09-06] MEDS: MULTIVITAMIN-OPHTHALMIC 1 TAB PO SCH (10:39)
[2017-09-06 11:08] VITALS: BP 128/75; PULSE 71; RESP 16; TEMP 98.1; O2SAT 95
[2017-09-06] MEDS ORDERED: MORPHINE SULFATE 2 MG/ML INJ SQ PRN (12:00)
[2017-09-06] MEDS ORDERED: MORPHINE SULFATE 2 MG/ML INJ IV PUSH PRN ×2 (12:00→12:15)
[2017-09-06 12:14] LABS: MAGNESIUM 1.9 MG/DL (1.5-2.5)
[2017-09-06] MEDS ORDERED: POTASSIUM CHLORIDE 10 MEQ CONTROLLED RELEASE TAB PO ONE (13:00)
[2017-09-06 14:27] VITALS: BP 149/87; PULSE 83; RESP 16; TEMP 98.3; O2SAT 95
[2017-09-06 16:05] LABS: HEMOGLOBIN A1C 6.6 % (4.3-6.0)
[2017-09-06] MEDS: ACETAMINOPHEN 325 MG TAB PO PRN (16:16)
--- NOTE | 2017-09-06 18:23 | HHI.PR ---
Subjective Remarks In bed complaints of left shoulder pain . Patient also complaints of generalized weakness Feeling ired. No n/v//c. No fever ro chills. Eatign fairly well. Objective Vitals Vital Signs Date Time Temp Pulse Resp B/P (MAP) Pulse Ox O2 Delivery O2 Flow Rate FiO2 09/06/17 14:27 98.3 83 16 149/87 (107) 95 09/06/17 11:08 98.1 71 16 128/75 (92) 95 09/06/17 08:45 97.8 79 16 159/93 (115) 96 09/06/17 05:58 98.0 91 18 179/83 (115) 97 09/05/17 23:34 98.1 76 18 163/72 (102) 96 09/05/17 21:22 98.1 76 18 167/94 (118) 95 I/O 09/05/17 09/05/17 09/05/17 09/06/17 09/06/17 09/06/17 07:00 15:00 23:00 07:00 15:00 23:00 # Voids 8 4 # Bowel Movements 0 Result Diagram: 09/06/17 0545 09/06/17 0545 Imaging Last Impressions Head CT 09/05/17 1005 Signed Impressions: Service Date/Time: Tuesday, September 05, 2017 10:30 - CONCLUSION: No acute disease. Clayton Tuttle MD Shoulder MRI 09/05/17 0000 Signed Impressions: Service Date/Time: Tuesday, September 05, 2017 17:48 - CONCLUSION: 1. Large full-thickness rotator cuff tear involving essentially all of supraspinatus and infraspinatus. Atrophy of both muscle bellies and also cuff tear-associated narrowing of the subacromial space. 2. 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 3. Focal SLAP, most likely chronic/degenerative. Wesley Penn MD Head Magnetic Resonance Angiography 09/05/17 0000 Signed Impressions: Service Date/Time: Tuesday, September 05, 2017 17:48 - CONCLUSION: No acute abnormality of the intracranial arteries. Wesley Penn MD Elbow X-Ray 09/05/17 0000 Signed Impressions: Service Date/Time: Tuesday, September 05, 2017 10:25 - CONCLUSION: No acute disease. Clayton Tuttle MD Carotid Artery Ultrasound 09/05/17 0000 Signed Impressions: Service Date/Time: Tuesday, September 05, 2017 14:42 - CONCLUSION: 1. No evidence for hemodynamically significant stenosis. 2. Antegrade flow in the bilateral vertebral arteries. Clayton Tuttle MD Brain MRI 09/05/17 0000 Signed Impressions: Service Date/Time: Tuesday, September 05, 2017 17:48 - CONCLUSION: 1. No bleed, acute infarct or other acute intracranial abnormality. 2. Atrophy and chronic white matter changes. Wesley Penn MD Objective Remarks GENERAL: Resting comfortably. CARDIOVASCULAR: Regular rate and rhythm. RESPIRATORY: No accessory muscle use. Clear to auscultation. Breath sounds equal bilaterally. GASTROINTESTINAL: Abdomen soft, non-tender, nondistended. Hepatic and splenic margins not palpable. MUSCULOSKELETAL: Approximate 2 cm laceration on the olecranon of the right elbow. Decreased ROM of LUE s/t pain. NEUROLOGICAL: Awake and alert. No obvious cranial nerve deficits. 4/5 in the LLE, 3/5 in the RLE. 5/5 strength in the RUE. Normal speech. PSYCHIATRIC: Appropriate mood and affect; insight and judgment normal. A/P Assessment and Plan Falls/ headache/ dizziness The pt had a SAH in 2013 and she says her symptoms started around that time. She has been falling more frequently and did hit her head on the day of admission. She has a headache in the back of her head and accompanying dizziness. CT of the head was unremarkable. - MRI brain pending. - neurology consult requested. - PT/ OT. - pain control with a bowel regimen. Hypertensive urgency SBP was over 200 in the ED. - resume home medications. - clonidine as needed. Large Left rotator cuff tear Intractable pain The pt says she has a chronic left rotator cuff teat that has been made worse by her falls this week. Her PCP was supposedly going to order an MRI. - MRI of the left shoulder reviewed with large rotator cuff tear . Consult her ortho Dr Lucas - PT/ OT. - pain control add IV dilaudid for intractable pain, continue with bowel regimen. Laceration On the right elbow. Too small for stitches per ED physician. - wound care nurse consult if needed. DM 2 On metformin as an outpt. - hold metformin. - insulin sliding scale. Add long acting insulin as needed. PPx: SCDs Discussed Condition With Patient, nurse Dejah Britton MD Sep 06, 2017 18:23
--- NOTE | 2017-09-06 18:30 | MG ---
cc: Selvin Walker MD EEG RECORD NUMBER: [id number] INDICATION A 77-year-old female with history of head trauma, syncopal-type episode. DESCRIPTION: A 8-9 Hz alpha activity, 10-30 mV, frontal beta and some electrical myogenic artifact. Attenuation, slowing of background, transition into drowsy state. Limited driving with photic stimulation. No cardiac arrhythmia noted. INTERPRETATION: Normal awake, sleep electroencephalogram. Clinical correlation. Selvin Walker MD MG/SB , 06:18 PM , 06:28 PM
[2017-09-06] MEDS ORDERED: ERGOCALCIFEROL (VIT D2) 50,000 UNIT CAP PO SCH (20:00)
[2017-09-06 20:10] VITALS: BP 139/78; PULSE 83; RESP 18; O2SAT 93
--- NOTE | 2017-09-06 20:30 | EKG ---
Date Performed: 09/05/2017 Time Performed: 11:22:52 PTAGE: 77 years EKG: Sinus rhythm NORMAL ECG PREVIOUS TRACING : 09/05/2017 11.22 Since the previous tracing, no significant change noted DOCTOR: Dmaon Solares Interpretating Date/Time 09/06/2017 20:29:57
[2017-09-06 23:37] VITALS: BP 145/85; PULSE 83; RESP 18; TEMP 98.1; O2SAT 93
[2017-09-07 04:11] VITALS: BP 142/84; PULSE 89; RESP 18; TEMP 98; O2SAT 93
[2017-09-07 07:22] VITALS: BP 156/89; PULSE 93; RESP 18; TEMP 97.4; O2SAT 94
--- NOTE | 2017-09-07 08:23 | HHI.FF ---
Face to Face Verification Diagnosis: (1) Fall (2) Rotator cuff tear, left (3) Impaired activities of daily living Physical Therapy Order: Evaluate and Treat Occupational Therapy Order: Evaluate and Treat Home Health Nursing Order: Medical education Signs/symptoms of disease process Medication education-adverse effect Nursing assessment with vital signs I have seen patient Lacy Aguilar on 09/07/17. My clinical findings support the need for the requested home health care services because: Ltd mobility - disease progression Deconditioned w/ increased weakness I certify that my clinical findings support that this patient is homebound because: Unsteady gait/balance Unsafe to leave home unassisted Rodrigo Duran Sep 07, 2017 08:23
[2017-09-07] MEDS: DOCUSATE SODIUM 50 MG/SENNA 8.6 MG TAB PO SCH (09:00)
[2017-09-07] MEDS: MULTIVITAMIN-OPHTHALMIC 1 TAB PO SCH (09:02)
[2017-09-07] MEDS: CETIRIZINE HCL 10 MG TAB PO SCH (09:02)
[2017-09-07] MEDS: METOPROLOL TARTRATE 25 MG TAB PO SCH (09:02)
[2017-09-07] MEDS: GABAPENTIN 100 MG CAP PO SCH (09:02)
[2017-09-07] MEDS: LISINOPRIL 20 MG TAB PO SCH (09:03)
[2017-09-07] MEDS: LEVOTHYROXINE SODIUM 125 MCG TAB PO SCH (09:03)
[2017-09-07] MEDS: ATORVASTATIN 10 MG TAB PO SCH (09:03)
[2017-09-07] MEDS: PANTOPRAZOLE SOD 20 MG DELAYED RELEASE TAB PO SCH (09:04)
[2017-09-07] MEDS: HYDROCHLOROTHIAZIDE 25 MG TAB PO SCH (09:04)
[2017-09-07] MEDS: SODIUM CHLORIDE 0.9% FLUSH 10 ML FLUSH IV FLUSH SCH (09:05)
[2017-09-07 09:57] LABS: FREE T3 2.59 PG/ML (2.18-3.98); FREE T4 1.06 NG/DL (0.76-1.46)
[2017-09-07 12:04] VITALS: BP 124/66; PULSE 60; RESP 18; TEMP 97.5; O2SAT 97
[2017-09-07] MEDS ORDERED: VITA500012 PO (13:49)
== END 2017-09-07 13:37 | disposition home or self-care (01) ==
LOC: NEPE 09:40 → NEDA 12:53 → NEPGCP 15:18
PROVIDERS: ADMIT Hospitalist; ATTEND Hospitalist
DX: R51 Headache (principal); R42 Dizziness and giddiness; I16.0 Hypertensive urgency; M75.102 Unspecified rotator cuff tear or rupture of left shoulder, not specified as traumatic; S51.011A Laceration without foreign body of right elbow, initial encounter; I10 Essential (primary) hypertension; E11.9 Type 2 diabetes mellitus without complications; E03.9 Hypothyroidism, unspecified; K56.7 Ileus, unspecified; E78.00 Pure hypercholesterolemia, unspecified; E55.9 Vitamin D deficiency, unspecified; K21.9 Gastro-esophageal reflux disease without esophagitis; R29.6 Repeated falls; F01.50 Vascular dementia, unspecified severity, without behavioral disturbance, psychotic disturbance, mood disturbance, and anxiety; F32.9 Major depressive disorder, single episode, unspecified; M19.90 Unspecified osteoarthritis, unspecified site; Z79.899 Other long term (current) drug therapy; Z79.84 Long term (current) use of oral hypoglycemic drugs; W18.2XXA Fall in (into) shower or empty bathtub, initial encounter
CPT/HCPCS: 70450; 70544; 70553; 73080; 73221; 80048; 81001; 82306; 82550; 82552; 82607; 82948; 83036; 83735; 84439; 84443; 84481; 84484; 85025; 85610; 85730; 93005; 93880; 95819; 96361; 96374; 97162; 97167; 99285; A9579; G0378; G8987; G8988; J2405; J7030

== ENCOUNTER 2018-05-12 12:10 | Observation (INO) ==
--- NOTE | 2018-05-12 12:49 | ED ---
HPI General Chief complaint: Fall Stated complaint: Fall/Weakness Complaint Time Seen by Provider: 05/12/18 12:18 Source: patient and EMS Mode of arrival: EMS Limitations: no limitations History of Present Illness HPI narrative: Patient is a 78-year female presenting to emergency department for evaluation of weakness. Patient states that she attempted to get out of bed to use the restroom at 3 AM this morning, she subsequently fell landing on her right shoulder. She denies any head injury or loss of consciousness. Patient reports increasing weakness in her lower extremities. She reports that she has had increased falls. Caregiver reports that patient has been unable to stand today. Patient denies any chest pain, dizziness, abdominal pain, chest pain or shortness of breath. Pt reports pain in her right shoulder, 7/10, aching sore, constant, pt states she cannot move her shoulder. Patient denies any dysuria, she reports urinary frequency but states this is normal for her. Patient also reports pain in her lower back. She states she has been receiving injections from pain management. Related Data Home Medications Medication Instructions Recorded Confirmed atorvastatin 10 mg PO DAILY 02/08/18 05/12/18 levothyroxine 100 mcg PO DAILY 02/08/18 05/12/18 lisinopril-hydrochlorothiazide 1 tab PO DAILY 02/08/18 05/12/18 metformin 500 mg PO BID 02/08/18 05/12/18 metoprolol tartrate 50 mg PO BID 02/08/18 05/12/18 omeprazole 20 mg PO DAILY 02/08/18 05/12/18 Allergies Allergy/AdvReac Type Severity Reaction Status Date / Time bee venom protein (honey bee) Allergy Severe ANAPHYLAXIS Verified 02/08/18 01:31 Review of Systems ROS: all other systems reviewed are negative FORMERLY [facility], [facility]–1983 Medical History Medical History Diabetes (Acute) GERD (gastroesophageal reflux disease) (Acute) High cholesterol (Acute) Hypertension (Acute) Hypothyroid (Acute) Social History Social History Substance History: No History of Abuse Second Hand Smoke Exposure: No Smoking Status: Never smoker How Often Do You Have a Drink Containing Alcohol: Never Recent Out of Country Travel within the Last 8 Weeks: No Immunization History Tetanus Immunization: Unsure Exam Narrative Exam Narrative: GENERAL: Overweight, alert, well-developed elderly female. Presenting in no acute distress. SKIN: Focused skin assessment warm/dry. HEAD: Atraumatic. Normocephalic. EYES: Pupils equal and round. No scleral icterus. No injection or drainage. ENT: No nasal bleeding or discharge. Mucous membranes pink and moist. NECK: Trachea midline. No JVD. CARDIOVASCULAR: Regular rate and rhythm. No murmur appreciated. RESPIRATORY: No accessory muscle use. Clear to auscultation. Breath sounds equal bilaterally. GASTROINTESTINAL: Abdomen soft, non-tender, nondistended. Hepatic and splenic margins not palpable. MUSCULOSKELETAL: No obvious deformities. No clubbing. No cyanosis. No edema. Tenderness to palpation over lumbar spine, no step-off noted. NEUROLOGICAL: Awake and alert. No obvious cranial nerve deficits. Motor grossly within normal limits. Normal speech. PSYCHIATRIC: Appropriate mood and affect; insight and judgment normal. Course Initial Documented Vital Signs Temperature 98.1 F 05/12/18 12:15 Pulse Rate 85 05/12/18 12:15 Respiratory Rate 20 05/12/18 12:15 Blood Pressure 145/73 H 05/12/18 12:15 Pulse Oximetry 95 05/12/18 12:15 Last Documented Vital Signs Temperature 98.1 F 05/12/18 12:15 Pulse Rate 85 05/12/18 12:15 Respiratory Rate 20 05/12/18 12:15 Blood Pressure 145/73 H 05/12/18 12:15 Pulse Oximetry 98 05/12/18 13:28 Medical Decision Making MDM Narrative Medical decision making narrative: Pt presented for eval of shoulder pain after a fall. VSS, labs and imaging ordered and pending. Will obtain an MRI of the lumbar spine due to increased weakness. Labs reviewed, no acute findings. Ct of the brain and CXR with no acute findings. UA consistent with UTI, Rocephin 1g IV x 1 dose given. MRI of the lumbar spine with no acute abnormalities. Weakness likely secondary to deconditioning, obesity, back pain, UTI. Discussed with my attending, pt will be admitted under observation. Pt is requesting placement to SNF, relayed this to admitting physician. Admit orders placed. Medical Screen Exam Complete: Yes Emergency Medical Condition: Yes Differential Diagnosis Differential Diagnosis: Radiculopathy versus metabolic abnormality versus UTI versus arrhythmia versus other Medical Records Medical records reviewed: Yes I reviewed the patient's medical records. Lab Data Lab results reviewed: Yes I reviewed the patient's lab results. Result diagrams: 05/12/18 12:45 05/12/18 12:45 Lab Results 05/12/18 05/12/18 05/12/18 Range/Units 12:45 12:45 12:45 WBC 15.2 H (4.0-11.0) th/mm3 RBC 5.25 (4.00-5.30) mil/mm3 Hgb 16.5 H (11.6-15.3) gm/dL Hct 47.3 H (35.0-46.0) % MCV 90.1 (80.0-100.0) fL MCH 31.4 (27.0-34.0) pg MCHC 34.8 (32.0-36.0) % RDW 14.9 (11.6-17.2) % Plt Count 307 (150-450) th/mm3 MPV 8.1 (7.0-11.0) fL Neut % (Auto) 86.0 H (16.0-70.0) % Lymph % (Auto) 9.2 (9.0-44.0) % [place] % (Auto) 4.2 (0.0-8.0) % Eos % (Auto) 0.1 (0.0-4.0) % Baso % (Auto) 0.5 (0.0-2.0) % Neut # (Auto) 13.1 H (1.8-7.7) th/mm3 Lymph # (Auto) 1.4 (1.0-4.8) th/mm3 [place] # (Auto) 0.6 (0.0-0.9) th/mm3 Eos # (Auto) 0.0 (0.0-0.4) th/mm3 Baso # (Auto) 0.1 (0.0-0.2) th/mm3 WBC Differential . Differential Comment Auto diff final Sodium 137 (136-145) meq/L Potassium 3.6 (3.5-5.1) meq/L Chloride 97 L (98-107) meq/L Carbon Dioxide 31.1 (21.0-32.0) meq/L Anion Gap 9 (5-15) meq/L BUN 11 (7-18) mg/dL Creatinine 0.89 (0.50-1.00) mg/dL Estimated GFR 61 L (>89) mL/min Random Glucose 195 H (74-106) mg/dL Calcium 9.6 (8.5-10.1) mg/dL Magnesium 1.7 (1.5-2.5) mg/dL Total Bilirubin 1.1 H (0.2-1.0) mg/dL AST 55 H (15-37) U/L ALT 30 (10-53) U/L Alkaline Phosphatase 78 (45-117) U/L Total Creatine Kinase 331 H Cancelled (26-192) U/L CK-MB (CK-2) 10.3 H (0.5-3.6) ng/mL CK-MB (CK-2) % 3.1 (0.0-4.0) % Troponin I Less than 0.02 L (0.02-0.05) ng/mL Total Protein 8.6 H (6.4-8.2) g/dL Albumin 4.1 (3.4-5.0) g/dL Urine Color (Yellw/Straw) Urine Clarity (Clear) Urine pH (5.0-8.5) Ur Specific [place] (1.002-1.035) Urine Protein (Neg-Trace) mg/dL Urine Glucose (UA) (Negative) mg/dL Urine Ketones (Negative) mg/dL Urine Occult Blood (Negative) Urine Nitrate (Negative) Urine Bilirubin (Negative) Urine Urobilinogen (Less than 2) mg/dL Ur Leukocyte Esterase (Negative) Urine RBC (0-3) /hpf Urine WBC (0-5) /hpf Ur Squamous Epith Cells (0-5) /hpf Urine Bacteria (None) /hpf Urine Mucus (Occasional) /lpf Micro UA Comment Ur Microscopic Review Urine Culture Comments 05/12/18 Range/Units 14:15 WBC (4.0-11.0) th/mm3 RBC (4.00-5.30) mil/mm3 Hgb (11.6-15.3) gm/dL Hct (35.0-46.0) % MCV (80.0-100.0) fL MCH (27.0-34.0) pg MCHC (32.0-36.0) % RDW (11.6-17.2) % Plt Count (150-450) th/mm3 MPV (7.0-11.0) fL Neut % (Auto) (16.0-70.0) % Lymph % (Auto) (9.0-44.0) % [place] % (Auto) (0.0-8.0) % Eos % (Auto) (0.0-4.0) % Baso % (Auto) (0.0-2.0) % Neut # (Auto) (1.8-7.7) th/mm3 Lymph # (Auto) (1.0-4.8) th/mm3 [place] # (Auto) (0.0-0.9) th/mm3 Eos # (Auto) (0.0-0.4) th/mm3 Baso # (Auto) (0.0-0.2) th/mm3 WBC Differential Differential Comment Sodium (136-145) meq/L Potassium (3.5-5.1) meq/L Chloride (98-107) meq/L Carbon Dioxide (21.0-32.0) meq/L Anion Gap (5-15) meq/L BUN (7-18) mg/dL Creatinine (0.50-1.00) mg/dL Estimated GFR (>89) mL/min Random Glucose (74-106) mg/dL Calcium (8.5-10.1) mg/dL Magnesium (1.5-2.5) mg/dL Total Bilirubin (0.2-1.0) mg/dL AST (15-37) U/L ALT (10-53) U/L Alkaline Phosphatase (45-117) U/L Total Creatine Kinase (26-192) U/L CK-MB (CK-2) (0.5-3.6) ng/mL CK-MB (CK-2) % (0.0-4.0) % Troponin I (0.02-0.05) ng/mL Total Protein (6.4-8.2) g/dL Albumin (3.4-5.0) g/dL Urine Color Yellow (Yellw/Straw) Urine Clarity Hazy H (Clear) Urine pH 5.0 (5.0-8.5) Ur Specific [place] 1.011 (1.002-1.035) Urine Protein Negative (Neg-Trace) mg/dL Urine Glucose (UA) Negative (Negative) mg/dL Urine Ketones Negative (Negative) mg/dL Urine Occult Blood Negative (Negative) Urine Nitrate Positive H (Negative) Urine Bilirubin Negative (Negative) Urine Urobilinogen Less than 2 (Less than 2) mg/dL Ur Leukocyte Esterase Trace H (Negative) Urine RBC Less than 1 (0-3) /hpf Urine WBC 8 H (0-5) /hpf Ur Squamous Epith Cells <1 (0-5) /hpf Urine Bacteria Few H (None) /hpf Urine Mucus Few H (Occasional) /lpf Micro UA Comment Cath-culture ind Ur Microscopic Review Not Reportable Urine Culture Comments Cath-cult indicated Imaging Data Radiologist's impression: Chest X-Ray 05/12/18 12:31 CONCLUSION: No acute cardiopulmonary findings. Head CT 05/12/18 12:31 CONCLUSION: 1. No acute intracranial abnormality identified. . Shoulder X-Ray 05/12/18 12:31 CONCLUSION: Advanced degenerative changes in the right shoulder. No acute fracture seen. Lumbar Spine MRI 05/12/18 12:33 CONCLUSION: 1. Small broad-based disc bulges at L1-2, L3-4 and L4-5. There is mild facet arthritis as above. No significant neural foraminal stenosis or spinal stenosis is identified. 2. Incidental left adrenal myelolipoma. 3. Small simple cysts within the kidneys bilaterally. Discharge Plan Discharge Disposition Patient Disposition: 30 Still Patient Discharge Condition Condition: Stable Discharge Details Diagnosis: Weakness, Acute UTI, Leukocytosis, Rhabdomyolysis, Impaired gait and mobility, Frequent falls Physicians Team ED Provider: Angelito Abdullahi ED Midlevel Provider: Elke Washington Primary Care Provider: Davey Chavez Attending Provider: Taylor Henriquez Status ED Status: Admitted Observation Patient
[2018-05-12 13:07] LABS: Baso # (Auto) 0.1 th/mm3 (0.0-0.2); Baso % (Auto) 0.5 % (0.0-2.0); Eos % (Auto) 0.1 % (0.0-4.0); Hematocrit 47.3 % (35.0-46.0); Hemoglobin 16.5 gm/dL (11.6-15.3); Lymph # (Auto) 1.4 th/mm3 (1.0-4.8); Lymph % (Auto) 9.2 % (9.0-44.0); Mean Corpuscular HGB Conc 34.8 % (32.0-36.0); Mean Corpuscular Hemoglobin 31.4 pg (27.0-34.0); Mean Corpuscular Volume 90.1 fL (80.0-100.0); Mean Platelet Volume 8.1 fL (7.0-11.0); Mono # (Auto) 0.6 th/mm3 (0.0-0.9); Mono % (Auto) 4.2 % (0.0-8.0); Neut # (Auto) 13.1 th/mm3 (1.8-7.7); Platelet Count 307 th/mm3 (150-450); Red Blood Count 5.25 mil/mm3 (4.00-5.30); Red Cell Distribution Width 14.9 % (11.6-17.2); White Blood Count 15.2 th/mm3 (4.0-11.0)
--- NOTE | 2018-05-12 13:16 | XR ---
EXAM DATE: 05/12/2018 1:12 PM EST AGE/SEX: 78 years / Female INDICATIONS: Short of breath, fell landing on right shoulder , pain. CLINICAL DATA: This is the patient's initial encounter. Patient reports that signs and symptoms have been present for 1 day and indicates a pain score of 9/10. MEDICAL/SURGICAL HISTORY: None. None. COMPARISON: [facility], XR CHEST PA AND LAT, 07/08/2015. . FINDINGS: Single view of the thorax demonstrates the heart to be at the upper limits of normal in size. There a re mild atelectatic changes at the lung bases. The lungs are otherwise clear. There is no pneumothora x. The visualized bony structures demonstrate degenerative changes in the thoracic spine but are otherwi se grossly intact. CONCLUSION: No acute cardiopulmonary findings. Electronically signed by: Luis Ocampo MD 05/12/2018 1:14 PM EST
--- NOTE | 2018-05-12 13:17 | XR ---
EXAM DATE: 05/12/2018 1:09 PM EST AGE/SEX: 78 years / Female INDICATIONS: Fell today landed on right shoulder, difficulty with motion, pain. CLINICAL DATA: This is the patient's initial encounter. Patient reports that signs and symptoms have been present for 1 day and indicates a pain score of 10/10. MEDICAL/SURGICAL HISTORY: None. None. COMPARISON: [facility], SHOULDER RIGHT COMPLETE (>2VWS), 09/01/2010. . FINDINGS: The humeral head is well situated within the glenoid fossa. There are advanced arthritic changes with in the glenohumeral joint and the AC joint. The humeral head is quite high riding suggesting rotator cuff tear. No acute fracture seen. The limited portion of right lung visualized is clear. CONCLUSION: Advanced degenerative changes in the right shoulder. No acute fracture seen. Electronically signed by: Luis Ocampo MD 05/12/2018 1:15 PM EST
[2018-05-12 13:28] LABS: Alanine Aminotransferase 30 U/L (10-53)
--- NOTE | 2018-05-12 13:48 | CT ---
EXAM DATE: 05/12/2018 1:40 PM EST AGE/SEX: 78 years / Female INDICATIONS: Generalized weakness. Cephalgia. CLINICAL DATA: This is the patient's initial encounter. Patient reports that signs and symptoms have been present for 1 day and indicates a pain score of 4/10. MEDICAL/SURGICAL HISTORY: Diabetes. Gastroesophageal reflux disease. Hypertension. Closed head i njury, subarachnoid bleed. None. RADIATION DOSE: 56.35 CTDI (mGy) COMPARISON: [facility], CT HEAD W/O CONTRAST, 02/08/2018. . TECHNIQUE: CT of the head without contrast. Using automated exposure control and adjustment of the mA and/or kV according to patient size, radiation dose was kept as low as reasonably achievable to ob tain optimal diagnostic quality images. DICOM format image data is available electronically for revi ew and comparison. FINDINGS: Cerebrum: The ventricles are normal for age. No evidence of midline shift, mass lesion, hemorrhage or acute infarction. No extraaxial fluid collections are seen. The exam does demonstrate a small are a of ossification within the falx. This is stable compared to previous dated 02/08/2018. Posterior Fossa: The cerebellum and brainstem are intact. The 4th ventricle is midline. The cerebe llopontine angle is unremarkable. Extracranial: The visualized portion of the orbits is intact. Skull: The calvaria is intact. No evidence of skull fracture. CONCLUSION: 1. No acute intracranial abnormality identified. . Electronically signed by: Luis Ocampo MD 05/12/2018 1:47 PM EST
[2018-05-12 13:51] LABS: Albumin 4.1 g/dL (3.4-5.0); Alkaline Phosphatase 78 U/L (45-117); Anion Gap 9 meq/L (5-15); Blood Urea Nitrogen 11 mg/dL (7-18); Calcium 9.6 mg/dL (8.5-10.1); Carbon Dioxide 31.1 meq/L (21.0-32.0); Chloride 97 meq/L (98-107); Glomerular Filtration Rate 61 mL/min (>89); Glucose,Random 195 mg/dL (74-106); Sodium 137 meq/L (136-145); Total Protein 8.6 g/dL (6.4-8.2)
[2018-05-12 13:53] LABS: Aspartate Aminotransferase 55 U/L (15-37); Creatine Kinase 331 U/L (26-192); Magnesium 1.7 mg/dL (1.5-2.5); Potassium 3.6 meq/L (3.5-5.1)
[2018-05-12 14:06] LABS: CKMB Percent 3.1 % (0.0-4.0); Creatine Kinase MB 10.3 ng/mL (0.5-3.6)
[2018-05-12 14:33] LABS: Bacteria,Urine Few /hpf; Bilirubin,Urine Negative (Negative); Clarity,Urine Hazy (Clear); Color,Urine Yellow (Yellw/Straw); Glucose,Urine (UA) Negative (Negative); Leukocyte Esterase,Urine Trace (Negative); Mucus,Urine Few /lpf (Occasional); Nitrite,Urine Positive (Negative); Specific Gravity,Urine 1.011 (1.002-1.035); Squamous Epithelial Cell,Urine <1 /hpf (0-5)
--- NOTE | 2018-05-12 14:34 | MR ---
EXAM DATE: 05/12/2018 2:14 PM EST AGE/SEX: 78 years / Female INDICATIONS: Radiculopathy. Low back pain and weakness for two days. CLINICAL DATA: This is the patient's initial encounter. Patient reports that signs and symptoms have been present for 2 days and indicates a pain score of 8/10. MEDICAL/SURGICAL HISTORY: Hypertension. Diabetes mellitus type II. Hypercholesterolemia. Appe ndectomy. Cholecystectomy. Hysterectomy. Knee sx. COMPARISON: [facility], CT LUMBAR SPINE W/O CONTRAST, 09/16/2016. . TECHNIQUE: Multiplanar, multisequence MRI of the lumbar spine was performed without contrast. Patie nt was scanned in a sitting position; neutral, flexion, and extension scans were performed in the sa gittal plane. FINDINGS: Sagittal T1 and T2-weighted imaging demonstrates 5 lumbar type nonrib-bearing vertebral bodies. The o verall alignment is adequate. No abnormal marrow signal seen within the vertebral bodies. The paraspi nous soft tissues demonstrates 2 small simple cyst within the right kidney. There is a 2.3 cm simple cyst within the left kidney. Note is made of a fatty lesion within the left adrenal gland measuring 3 .3 cm most consistent with adrenal myelolipoma. Axial imaging: T12-L1: The thecal space is adequate. The neural foramina are adequate. No significant abnormality i s identified. L1-L2: There is a degenerated disc with a small broad-based disc bulge. This just effaces the ventr al thecal sac. The residual thecal space and foramina are adequate. There is slight facet arthritis b ilaterally. L2-L3: The thecal space and neural foramina are adequate. There is mild facet arthritis on the righ t. The facet joint on the left is intact. L3-L4: There is partial desiccation of the disks with minimal broad-based disc bulge and mild facet arthritis bilaterally. The thecal space and foramina are adequate. L4-L5: There is partial desiccation of the disc. There is minimal broad-based disc bulge. The theca l space and foramina are adequate. There is mild facet arthritis bilaterally. L5-S1: There is desiccation of the disc. There is mild facet arthritis bilaterally. The thecal spac e and foramina are adequate. CONCLUSION: 1. Small broad-based disc bulges at L1-2, L3-4 and L4-5. There is mild facet arthritis as above. No significant neural foraminal stenosis or spinal stenosis is identified. 2. Incidental left adrenal myelolipoma. 3. Small simple cysts within the kidneys bilaterally. Electronically signed by: Luis Ocampo MD 05/12/2018 2:33 PM EST
[2018-05-12] MEDS ORDERED: Sodium Chlor 0.9% Inj 500 ML IV.SIG SCH (15:00)
[2018-05-12] MEDS ORDERED: Bisacodyl 10 MG Supp RECTAL PRN (15:26)
[2018-05-12] MEDS ORDERED: Dextrose 50% in Water 50 ML Vial IV.PUSH PRN (15:30)
[2018-05-12] MEDS: Enoxaparin Inj 40 MG/0.4 ML Syringe SQ SCH (15:56)
[2018-05-12] MEDS: Sod Chloride 0.9% Inj 1,000 ML IV.CONT SCH (16:54)
--- NOTE | 2018-05-12 16:55 | P.HPIM ---
History of Present Illness Primary Care Physician: Davey Chavez MD History of Present Illness: 78-year-old white female with a history of hyperlipidemia, hypothyroidism, hypertension, diabetes mellitus type 2 who lives alone with base functional capacity and ambulating with assistance of a walker. She noted yesterday that her bilateral legs gave out on her and became extremely weak and fell over to the right side. This morning she had difficulty transferring herself and ambulating with assistance of a walker and therefore came in for evaluation. She denies any chest pain nor any shortness of breath or cough. She has had chills but no fever. She has had good appetite with no nausea or vomiting. No abdominal pain or diarrhea. She denies any headaches or visual changes or difficulty with speech or swallow. She denies any associated numbness. Review of Systems Review of Systems: all other systems reviewed are negative [facility] Medical History Medical History High cholesterol (Acute) Diabetes (Acute) GERD (gastroesophageal reflux disease) (Acute) Hypertension (Acute) Hypothyroid (Acute) Surgical History Surgical History Total knee replacement status (Chronic) Family History Family History Other No known health problems Social History Social History Substance History: No History of Abuse Second Hand Smoke Exposure: No Smoking Status: Never smoker How Often Do You Have a Drink Containing Alcohol: Never Recent Out of Country Travel within the Last 8 Weeks: No Immunization History Tetanus Immunization: Unsure Medications and Allergies Allergies Allergy/AdvReac Type Severity Reaction Status Date / Time bee venom protein (honey bee) Allergy Severe ANAPHYLAXIS Verified 02/08/18 01:31 Home Medications Medication Instructions Recorded Confirmed Type atorvastatin 10 mg PO DAILY 02/08/18 05/12/18 History levothyroxine 100 mcg PO DAILY 02/08/18 05/12/18 History lisinopril-hydrochlorothiazide 1 tab PO DAILY 02/08/18 05/12/18 History metformin 500 mg PO BID 02/08/18 05/12/18 History metoprolol tartrate 50 mg PO BID 02/08/18 05/12/18 History omeprazole 20 mg PO DAILY 02/08/18 05/12/18 History Active Medications: Active Medications Acetaminophen (Tylenol) 650 mg PO Q4H PRN PRN Reason: Temp > 100.4 Al Hydroxide/Mg Hydroxide (Milk Of Magnesia Liq) 30 ml PO Q12H PRN PRN Reason: Mild Constipation Bisacodyl (Dulcolax Supp) 10 mg RECTAL DAILY PRN PRN Reason: SEVERE CONSITIPATION Dextrose (D50w Vial) 50 ml IV.PUSH UNSCH PRN PRN Reason: PER HYPOGLYCEMIA PROTOCOL Enoxaparin Sodium (Lovenox Inj) 40 mg SQ Q24H ROS Last Admin: 05/12/18 15:56 Dose: 40 mg Glucagon (Glucagon Inj) 1 mg OTHER PRN PRN PRN Reason: for Hypoglycemia Protocol Sodium Chloride (Ns Inj) 1,000 mls @ 100 mls/hr IV.CONT .Q10H ROS Stop: 05/13/18 08:00 Insulin Aspart (Novolog Insulin Correctional Sugar Inj) 0 unit SQ ACHS ROS; Protocol Lactulose (Lactulose Liq) 30 ml PO DAILY PRN PRN Reason: SEVERE CONSITIPATION Ondansetron HCl (Zofran Inj) 4 mg IV.PUSH Q6H PRN PRN Reason: NAUSEA OR VOMITING Senna/Docusate Sodium (Linda-Colace) 1 tab PO BID ROS Sennosides (Senokot) 17.2 mg PO Q12H PRN PRN Reason: Moderate Constipation Sodium Chloride (Ns Flush) 2 ml IV.FLUSH PRN PRN PRN Reason: FLUSH AFTER USING IV ACCESS Physical Exam Vital signs: Last Vital Signs Temp 98.1 F 05/12/18 12:15 Pulse 85 05/12/18 12:15 Resp 20 05/12/18 12:15 BP 145/73 H 05/12/18 12:15 Pulse Ox 98 05/12/18 13:28 Intake & Output 05/10/18 05/11/18 05/12/18 05/13/18 06:59 06:59 06:59 06:59 Intake Total 600 / 600 Balance 600 / 600 Weight 102.058 kg Narrative: GENERAL: Well developed, well nourished white female in nad SKIN: Warm and dry. HEAD: Atraumatic. Normocephalic. EYES: Pupils equal and round. No scleral icterus. No injection or drainage. ENT: No nasal bleeding or discharge. Mucous membranes pink and moist. NECK: Trachea midline. No JVD. CARDIOVASCULAR: Regular rate and rhythm. RESPIRATORY: No accessory muscle use. Clear to auscultation. Breath sounds equal bilaterally. GASTROINTESTINAL: Abdomen soft, non-tender, nondistended. Hepatic and splenic margins not palpable. Normoactive bowel sounds MUSCULOSKELETAL: Extremities without clubbing, cyanosis, trace edema, tenderness on palpation the right shoulder and right elbow with limited range of motion due to the pain. NEUROLOGICAL: Awake and alert. No obvious cranial nerve deficits. Motor strength 4.5 out of 5 bilateral lower extremities. Left upper extremities 5 out of 5, right upper extremities limited range of motion due to pain. Han[place] 8l speech. PSYCHIATRIC: Appropriate mood and affect; insight and judgment normal. Results Labs CBC & Chem 7: 05/12/18 12:45 05/12/18 12:45 Imaging Impressions Chest X-Ray 05/12/18 12:31 CONCLUSION: No acute cardiopulmonary findings. Head CT 05/12/18 12:31 CONCLUSION: 1. No acute intracranial abnormality identified. . Shoulder X-Ray 05/12/18 12:31 CONCLUSION: Advanced degenerative changes in the right shoulder. No acute fracture seen. Lumbar Spine MRI 05/12/18 12:33 CONCLUSION: 1. Small broad-based disc bulges at L1-2, L3-4 and L4-5. There is mild facet arthritis as above. No significant neural foraminal stenosis or spinal stenosis is identified. 2. Incidental left adrenal myelolipoma. 3. Small simple cysts within the kidneys bilaterally. Caprini VTE Risk Assessment Caprini VTE Risk Assessment: Moderate/High Risk (score >= 2) Caprini Risk Assessment Model: Point Value = 1 Point Value = 2 Point Value = 3 Point Value = 5 Age 41-60 Minor surgery BMI > 25 kg/m2 Swollen legs Varicose veins or History of unexplained or recurrent spontaneous Oral contraceptives or hormone replacement Sepsis (< 1 month) Serious lung disease, including pneumonia (< 1 month) Abnormal pulmonary function Acute myocardial infarction Congestive heart failure (< 1 month) History of inflammatory bowel disease Medical patient at bed rest Age 61-74 Arthroscopic surgery Major open surgery (> 45 min) Laparoscopic surgery (> 45 min) Malignancy Confined to bed (> 72 hours) Immobilizing plaster cast Central venous access Age >= 75 History of VTE Family history of VTE Factor V Leiden Prothrombin [id number] Lupus anticoagulant Anticardiolipin antibodies Elevated serum homocysteine Heparin-induced thrombocytopenia Other congenital or acquired thrombophilia Stroke (< 1 month) Elective arthroplasty Hip, pelvis, or leg fracture Acute spinal cord injury (< 1 month) Prophylaxis Regimen: Total Risk Factor Score Risk Level Prophylaxis Regimen 0-1 Low Early ambulation 2 Moderate Order ONE of the following: *Sequential Compression Device (SCD) *Heparin 5000 units SQ BID 3-4 Higher Order ONE of the following medications: *Heparin 5000 units SQ TID *Enoxaparin/Lovenox 40 mg SQ daily (WT < 150 kg, CrCl > 30 mL/min) *Enoxaparin/Lovenox 30 mg SQ daily (WT < 150 kg, CrCl > 10-29 mL/min) *Enoxaparin/Lovenox 30 mg SQ BID (WT < 150 kg, CrCl > 30 mL/min) AND/OR *Sequential Compression Device (SCD) 5 or more Highest Order ONE of the following medications: *Heparin 5000 units SQ TID (Preferred with Epidurals) *Enoxaparin/Lovenox 40 mg SQ daily (WT < 150 kg, CrCl > 30 mL/min) *Enoxaparin/Lovenox 30 mg SQ daily (WT < 150 kg, CrCl > 10-29 mL/min) *Enoxaparin/Lovenox 30 mg SQ BID (WT < 150 kg, CrCl > 30 mL/min) AND *Sequential Compression Device (SCD) Assessment and Plan Plan 78-year-old white female presents emergency room due to generalized weakness with inability to ambulate Recurrent fall with generalized weakness with inability to ambulate may be associated to her urinary tract infection. -Place the patient on observation. Consideration for further evaluation and workup should weakness not improve with treatment. Consult physical therapy occupational therapy Abnormal urinalysis with leukocytosis suspect urinary tract infection-the Rocephin has been initiated, follow-up with final urine cultures. Status post fall with right shoulder painx-ray negative, will also obtain an x- ray of the right elbow. Continue pain control occupational therapy. History of hypertension, chronic essentialresume home lisinopril and HCTZ and metoprolol History of hyperlipidemiaresume statin Diabetes mellitus type 2resume metformin and continue to monitor blood sugar with sliding scale insulin. History of hypothyroidism resume levothyroxine DVT prophylaxisLovenox.
[2018-05-12] MEDS: Insulin NovoLOG Aspart Correctional Sugar Inj SQ SCH ×2 (17:49→21:06)
--- NOTE | 2018-05-12 17:56 | XR ---
EXAM DATE: 05/12/2018 5:26 PM EST AGE/SEX: 78 years / Female INDICATIONS: Right elbow pain, fall. CLINICAL DATA: This is the patient's initial encounter. Patient reports that signs and symptoms have been present for 1 day and indicates a pain score of 8/10. MEDICAL/SURGICAL HISTORY: None. None. COMPARISON: [facility] [place]TE (4 VW), 09/05/2017. . FINDINGS: Bony structures are intact and in normal alignment. Joints are intact without dislocation or signifi cant arthropathy. Osseous density is normal. Soft tissues are unremarkable. No radiopaque foreign bodies seen. CONCLUSION: Negative for fracture or dislocation. Followup in 7-10 days is suggested if symptoms persist. Electronically signed by: Yordan Ocampo MD 05/12/2018 5:55 PM EST
--- NOTE | 2018-05-12 20:37 | P.PN ---
Subjective Interval history: not seen Physical Exam Vital signs: Vital Signs 05/12/18 12:15 05/12/18 13:28 Temperature 98.1 F Pulse Rate 85 Respiratory Rate 20 Blood Pressure 145/73 H Pulse Oximetry 95 98 Intake & Output 05/12/18 05/12/18 05/13/18 06:59 18:59 06:59 Intake Total 600 / 600 Balance 600 / 600 Weight 102.058 kg Intake: IV 600 / 600 NS Inj 500 ML @ 1000 mls/hr IV. 500 / 500 SIG BOLUS ROS Rx#:[id number] Rocephin Inj 1,000 MG In NS Inj 100 / 100 100 ML @ 200 mls/hr IV.SIG ONCE ONE Rx#:[id number] Other: # Voids 0 Weight On Admission 102.058 kg Narrative: GENERAL: Well developed, well nourished white female in nad SKIN: Warm and dry. CARDIOVASCULAR: Regular rate and rhythm. RESPIRATORY: No accessory muscle use. Clear to auscultation. Breath sounds equal bilaterally. GASTROINTESTINAL: Abdomen soft, non-tender, nondistended. Normoactive bowel sounds MUSCULOSKELETAL: Extremities without clubbing, cyanosis, trace edema, tenderness on palpation the right shoulder and right elbow with limited range of motion due to the pain. NEUROLOGICAL: Awake and alert. No obvious cranial nerve deficits. Motor strength 4.5 out of 5 bilateral lower extremities. Left upper extremities 5 out of 5, right upper extremities limited range of motion due to pain. Hanane 8l speech. PSYCHIATRIC: Appropriate mood and affect; insight and judgment normal. Results - Labs CBC & Chem 7: 05/12/18 12:45 05/12/18 12:45 Laboratory Results - last 24 hr 05/12/18 05/12/18 05/12/18 12:45 12:45 12:45 WBC 15.2 H RBC 5.25 Hgb 16.5 H Hct 47.3 H MCV 90.1 MCH 31.4 MCHC 34.8 RDW 14.9 Plt Count 307 MPV 8.1 Neut % (Auto) 86.0 H Lymph % (Auto) 9.2 [place] % (Auto) 4.2 Eos % (Auto) 0.1 Baso % (Auto) 0.5 Neut # (Auto) 13.1 H Lymph # (Auto) 1.4 [place] # (Auto) 0.6 Eos # (Auto) 0.0 Baso # (Auto) 0.1 WBC Differential . Differential Comment Auto diff final Sodium 137 Potassium 3.6 Chloride 97 L Carbon Dioxide 31.1 Anion Gap 9 BUN 11 Creatinine 0.89 Estimated GFR 61 L POC Glucose Random Glucose 195 H Calcium 9.6 Magnesium 1.7 Total Bilirubin 1.1 H AST 55 H ALT 30 Alkaline Phosphatase 78 Total Creatine Kinase 331 H Cancelled CK-MB (CK-2) 10.3 H CK-MB (CK-2) % 3.1 Troponin I Less than 0.02 L Total Protein 8.6 H Albumin 4.1 Urine Color Urine Clarity Urine pH Ur Specific [place] Urine Protein Urine Glucose (UA) Urine Ketones Urine Occult Blood Urine Nitrate Urine Bilirubin Urine Urobilinogen Ur Leukocyte Esterase Urine RBC Urine WBC Ur Squamous Epith Cells Urine Bacteria Urine Mucus Micro UA Comment Ur Microscopic Review Urine Culture Comments 05/12/18 05/12/18 14:15 17:47 WBC RBC Hgb Hct MCV MCH MCHC RDW Plt Count MPV Neut % (Auto) Lymph % (Auto) [place] % (Auto) Eos % (Auto) Baso % (Auto) Neut # (Auto) Lymph # (Auto) [place] # (Auto) Eos # (Auto) Baso # (Auto) WBC Differential Differential Comment Sodium Potassium Chloride Carbon Dioxide Anion Gap BUN Creatinine Estimated GFR POC Glucose 160 H Random Glucose Calcium Magnesium Total Bilirubin AST ALT Alkaline Phosphatase Total Creatine Kinase CK-MB (CK-2) CK-MB (CK-2) % Troponin I Total Protein Albumin Urine Color Yellow Urine Clarity Hazy H Urine pH 5.0 Ur Specific [place] 1.011 Urine Protein Negative Urine Glucose (UA) Negative Urine Ketones Negative Urine Occult Blood Negative Urine Nitrate Positive H Urine Bilirubin Negative Urine Urobilinogen Less than 2 Ur Leukocyte Esterase Trace H Urine RBC Less than 1 Urine WBC 8 H Ur Squamous Epith Cells <1 Urine Bacteria Few H Urine Mucus Few H Micro UA Comment Cath-culture ind Ur Microscopic Review Not Reportable Urine Culture Comments Cath-cult indicated - Imaging Impressions Elbow X-Ray 05/12/18 00:00 CONCLUSION: Negative for fracture or dislocation. Followup in 7-10 days is suggested if symptoms persist. Chest X-Ray 05/12/18 12:31 CONCLUSION: No acute cardiopulmonary findings. Head CT 05/12/18 12:31 CONCLUSION: 1. No acute intracranial abnormality identified. . Shoulder X-Ray 05/12/18 12:31 CONCLUSION: Advanced degenerative changes in the right shoulder. No acute fracture seen. Lumbar Spine MRI 05/12/18 12:33 CONCLUSION: 1. Small broad-based disc bulges at L1-2, L3-4 and L4-5. There is mild facet arthritis as above. No significant neural foraminal stenosis or spinal stenosis is identified. 2. Incidental left adrenal myelolipoma. 3. Small simple cysts within the kidneys bilaterally. Assessment and Plan - Plan 78-year-old white female presents emergency room due to generalized weakness with inability to ambulate Recurrent fall with generalized weakness with inability to ambulate may be associated to her urinary tract infection. -Place the patient on observation. Consideration for further evaluation and workup should weakness not improve with treatment. Consult physical therapy occupational therapy Abnormal urinalysis with leukocytosis suspect urinary tract infection- Rocephin has been initiated, follow-up with final urine cultures. Status post fall with right shoulder painx-ray negative, Continue pain control PT and occupational therapy. History of hypertension, chronic essentialresume home lisinopril and HCTZ and metoprolol History of hyperlipidemiaresume statin Diabetes mellitus type 2resume metformin and continue to monitor blood sugar with sliding scale insulin. History of hypothyroidism resume levothyroxine DVT prophylaxisLovenox.
[2018-05-12] MEDS: Senna/Docusate Sodium 8.6/50 MG Tablet PO SCH (21:00)
[2018-05-12] MEDS: Metoprolol Tartrate 50 MG Tablet PO SCH (21:00)
[2018-05-12] MEDS: Acetaminophen 325 MG Tablet PO PRN (21:06)
[2018-05-13] MEDS: Sod Chloride 0.9% Inj 1,000 ML IV.CONT SCH (02:25)
[2018-05-13 07:17] LABS: Baso # (Auto) 0.1 th/mm3 (0.0-0.2); Baso % (Auto) 0.8 % (0.0-2.0); Eos % (Auto) 0.5 % (0.0-4.0); Hemoglobin 13.9 gm/dL (11.6-15.3); Lymph # (Auto) 1.5 th/mm3 (1.0-4.8); Lymph % (Auto) 19.9 % (9.0-44.0); Mean Corpuscular Volume 91.1 fL (80.0-100.0); Mean Platelet Volume 7.3 fL (7.0-11.0); Mono # (Auto) 0.4 th/mm3 (0.0-0.9); Mono % (Auto) 4.7 % (0.0-8.0); Neut # (Auto) 5.6 th/mm3 (1.8-7.7); Neut % (Auto) 74.1 % (16.0-70.0); Platelet Count 226 th/mm3 (150-450); Red Blood Count 4.49 mil/mm3 (4.00-5.30); Red Cell Distribution Width 14.6 % (11.6-17.2); White Blood Count 7.6 th/mm3 (4.0-11.0)
[2018-05-13] MEDS: Levothyroxine 100 MCG Tablet PO SCH (07:30)
[2018-05-13 07:41] LABS: Alanine Aminotransferase 21 U/L (10-53); Alkaline Phosphatase 60 U/L (45-117); Anion Gap 6 meq/L (5-15); Aspartate Aminotransferase 32 U/L (15-37); Blood Urea Nitrogen 9 mg/dL (7-18); Calcium 8.6 mg/dL (8.5-10.1); Carbon Dioxide 29.2 meq/L (21.0-32.0); Chloride 108 meq/L (98-107); Glomerular Filtration Rate 86 mL/min (>89); Glucose,Random 145 mg/dL (74-106); Potassium 3.3 meq/L (3.5-5.1); Sodium 143 meq/L (136-145); Total Protein 6.5 g/dL (6.4-8.2)
[2018-05-13] MEDS ORDERED: Non-Formulary Drug (Lisinopril-Hydrochlorothiazide [Lisinopril-Hydrochlorothiazide] 1 TAB) PO SCH (09:00)
[2018-05-13] MEDS: Metoprolol Tartrate 50 MG Tablet PO SCH ×2 (09:53→20:55)
[2018-05-13] MEDS: Lisinopril 20 MG Tablet PO SCH (09:53)
[2018-05-13] MEDS: Senna/Docusate Sodium 8.6/50 MG Tablet PO SCH ×2 (09:54→20:55)
[2018-05-13] MEDS: Insulin NovoLOG Aspart Correctional Sugar Inj SQ SCH ×4 (09:54→21:43)
[2018-05-13] MEDS: Pantoprazole Sodium 20 MG DR Tablet PO SCH (09:54)
[2018-05-13] MEDS ORDERED: Potassium Bicarbonate 25 MEQ Effervescent Tablet PO ONE (10:00)
--- NOTE | 2018-05-13 12:51 | P.PN ---
Subjective Interval history: Follow-up generalized weakness. Complaining of right shoulder pain after sustaining a fall. Also reports of generalized achiness and DONATO from her neck being flexed Physical Exam Vital signs: Vital Signs 05/12/18 13:28 05/12/18 20:00 05/12/18 23:40 Temperature 99.0 F 98 F Pulse Rate 84 75 Respiratory Rate 18 18 Blood Pressure 135/65 134/75 Pulse Oximetry 98 95 96 05/13/18 03:31 05/13/18 08:00 Temperature 98.6 F 97.9 F Pulse Rate 67 68 Respiratory Rate 18 18 Blood Pressure 126/66 145/70 H Pulse Oximetry 96 98 Intake & Output 05/12/18 05/13/18 05/13/18 18:59 06:59 18:59 Intake Total 600 / 600 1000 / 1000 100 / 100 Balance 600 / 600 1000 / 1000 100 / 100 Weight 102.058 kg Intake: IV 600 / 600 1000 / 1000 100 / 100 NS Inj 1,000 ML @ 100 mls/hr IV 1000 / 1000 .CONT .Q10H ROS Rx#:[id number] NS Inj 500 ML @ 1000 mls/hr IV. 500 / 500 SIG BOLUS ROS Rx#:[id number] Rocephin Inj 1,000 MG In NS Inj 100 / 100 100 / 100 100 ML @ 200 mls/hr IV.SIG Q24H ROS Rx#:[id number] Other: # Voids 0 Weight On Admission 102.058 kg Narrative: GENERAL: Well developed, well nourished white female in nad SKIN: Warm and dry. CARDIOVASCULAR: Regular rate and rhythm. RESPIRATORY: No accessory muscle use. Clear to auscultation. Breath sounds equal bilaterally. GASTROINTESTINAL: Abdomen soft, non-tender, nondistended. Normoactive bowel sounds MUSCULOSKELETAL: Extremities without clubbing, cyanosis, trace edema, tenderness on palpation the right shoulder and right elbow with limited range of motion due to the pain. NEUROLOGICAL: Awake and alert. No obvious cranial nerve deficits. Motor strength 4.5 out of 5 bilateral lower extremities. Left upper extremities 5 out of 5, right upper extremities limited range of motion due to pain. Hanane 8l speech. PSYCHIATRIC: Appropriate mood and affect; insight and judgment normal. Results - Labs CBC & Chem 7: 05/13/18 06:30 05/13/18 06:30 Laboratory Results - last 24 hr 05/12/18 05/12/18 05/12/18 12:45 12:45 12:45 WBC 15.2 H RBC 5.25 Hgb 16.5 H Hct 47.3 H MCV 90.1 MCH 31.4 MCHC 34.8 RDW 14.9 Plt Count 307 MPV 8.1 Neut % (Auto) 86.0 H Lymph % (Auto) 9.2 [place] % (Auto) 4.2 Eos % (Auto) 0.1 Baso % (Auto) 0.5 Neut # (Auto) 13.1 H Lymph # (Auto) 1.4 [place] # (Auto) 0.6 Eos # (Auto) 0.0 Baso # (Auto) 0.1 WBC Differential . Differential Comment Auto diff final Sodium 137 Potassium 3.6 Chloride 97 L Carbon Dioxide 31.1 Anion Gap 9 BUN 11 Creatinine 0.89 Estimated GFR 61 L POC Glucose Random Glucose 195 H Calcium 9.6 Magnesium 1.7 Total Bilirubin 1.1 H AST 55 H ALT 30 Alkaline Phosphatase 78 Total Creatine Kinase 331 H Cancelled CK-MB (CK-2) 10.3 H CK-MB (CK-2) % 3.1 Troponin I Less than 0.02 L Total Protein 8.6 H Albumin 4.1 Urine Color Urine Clarity Urine pH Ur Specific [place] Urine Protein Urine Glucose (UA) Urine Ketones Urine Occult Blood Urine Nitrate Urine Bilirubin Urine Urobilinogen Ur Leukocyte Esterase Urine RBC Urine WBC Ur Squamous Epith Cells Urine Bacteria Urine Mucus Micro UA Comment Ur Microscopic Review Urine Culture Comments 05/12/18 05/12/18 05/12/18 14:15 17:47 21:04 WBC RBC Hgb Hct MCV MCH MCHC RDW Plt Count MPV Neut % (Auto) Lymph % (Auto) [place] % (Auto) Eos % (Auto) Baso % (Auto) Neut # (Auto) Lymph # (Auto) [place] # (Auto) Eos # (Auto) Baso # (Auto) WBC Differential Differential Comment Sodium Potassium Chloride Carbon Dioxide Anion Gap BUN Creatinine Estimated GFR POC Glucose 160 H 167 H Random Glucose Calcium Magnesium Total Bilirubin AST ALT Alkaline Phosphatase Total Creatine Kinase CK-MB (CK-2) CK-MB (CK-2) % Troponin I Total Protein Albumin Urine Color Yellow Urine Clarity Hazy H Urine pH 5.0 Ur Specific [place] 1.011 Urine Protein Negative Urine Glucose (UA) Negative Urine Ketones Negative Urine Occult Blood Negative Urine Nitrate Positive H Urine Bilirubin Negative Urine Urobilinogen Less than 2 Ur Leukocyte Esterase Trace H Urine RBC Less than 1 Urine WBC 8 H Ur Squamous Epith Cells <1 Urine Bacteria Few H Urine Mucus Few H Micro UA Comment Cath-culture ind Ur Microscopic Review Not Reportable Urine Culture Comments Cath-cult indicated 05/13/18 05/13/18 05/13/18 06:30 06:30 09:52 WBC 7.6 RBC 4.49 Hgb 13.9 D Hct 41.0 MCV 91.1 MCH 31.0 MCHC 34.0 RDW 14.6 Plt Count 226 MPV 7.3 Neut % (Auto) 74.1 H Lymph % (Auto) 19.9 [place] % (Auto) 4.7 Eos % (Auto) 0.5 Baso % (Auto) 0.8 Neut # (Auto) 5.6 Lymph # (Auto) 1.5 [place] # (Auto) 0.4 Eos # (Auto) 0.0 Baso # (Auto) 0.1 WBC Differential . Differential Comment Auto diff final Sodium 143 Potassium 3.3 L Chloride 108 H D Carbon Dioxide 29.2 Anion Gap 6 BUN 9 Creatinine 0.66 Estimated GFR 86 L POC Glucose 123 H Random Glucose 145 H Calcium 8.6 D Magnesium Total Bilirubin 0.8 AST 32 ALT 21 Alkaline Phosphatase 60 Total Creatine Kinase CK-MB (CK-2) CK-MB (CK-2) % Troponin I Total Protein 6.5 D Albumin 3.0 L D Urine Color Urine Clarity Urine pH Ur Specific [place] Urine Protein Urine Glucose (UA) Urine Ketones Urine Occult Blood Urine Nitrate Urine Bilirubin Urine Urobilinogen Ur Leukocyte Esterase Urine RBC Urine WBC Ur Squamous Epith Cells Urine Bacteria Urine Mucus Micro UA Comment Ur Microscopic Review Urine Culture Comments - Imaging Impressions Elbow X-Ray 05/12/18 00:00 CONCLUSION: Negative for fracture or dislocation. Followup in 7-10 days is suggested if symptoms persist. Chest X-Ray 05/12/18 12:31 CONCLUSION: No acute cardiopulmonary findings. Head CT 05/12/18 12:31 CONCLUSION: 1. No acute intracranial abnormality identified. . Shoulder X-Ray 05/12/18 12:31 CONCLUSION: Advanced degenerative changes in the right shoulder. No acute fracture seen. Lumbar Spine MRI 05/12/18 12:33 CONCLUSION: 1. Small broad-based disc bulges at L1-2, L3-4 and L4-5. There is mild facet arthritis as above. No significant neural foraminal stenosis or spinal stenosis is identified. 2. Incidental left adrenal myelolipoma. 3. Small simple cysts within the kidneys bilaterally. Assessment and Plan - Plan 78-year-old white female presents emergency room due to generalized weakness with inability to ambulate Recurrent fall with generalized weakness with inability to ambulate may be associated to her urinary tract infection. -Place the patient on observation. Consideration for further evaluation and workup should weakness not improve with treatment. Consulted physical therapy occupational therapy Abnormal urinalysis with leukocytosis suspect urinary tract infection- Rocephin has been initiated, follow-up with final urine cultures. Status post fall with right shoulder painx-ray negative, Continue pain control PT and occupational therapy. Obtain MRI suspect rotator cuff tear History of hypertension, chronic essentialresume home lisinopril and HCTZ and metoprolol History of hyperlipidemiaresume statin Diabetes mellitus type 2resume metformin and continue to monitor blood sugar with sliding scale insulin. History of hypothyroidism resume levothyroxine DVT prophylaxisLovenox. Discharge Planning: Needs rehab per PT
--- NOTE | 2018-05-13 12:56 | MR ---
EXAM DATE: 05/13/2018 12:36 PM EST AGE/SEX: 78 years / Female INDICATIONS: . Right shoulder pain. CLINICAL DATA: This is the patient's initial encounter. Patient reports that signs and symptoms have been present for 1 day and indicates a pain score of 5/10. MEDICAL/SURGICAL HISTORY: Hypertension. Hypercholesterolemia. Appendectomy. Cholecystectomy. Hysterectomy. Knee replacement. COMPARISON: No prior exams available for comparison. TECHNIQUE: Multiplanar, multisequence MRI examination was performed without contrast. FINDINGS: Multiple abnormalities are noted. Rotator Cuff: There is motion artifact identified throughout the exam. There is complete tear of the subscapularis tendon with fatty infiltration of the muscle belly. There is complete tear of the supr aspinatus and infraspinatus tendons with fatty infiltration of the muscle bellies. There is edema zaheer ntified within the teres minor. Labrum: The labrum appears to be completely absent. Bony productive changes are identified along the superior and inferior aspect of the glenoid. Marrow/Cartilage: The cartilage is diffusely abnormal along the glenoid. The marrow demonstrates nor mal marrow signal. Other: The osseous structures are significant for extensive degenerative changes within the right AC joint and glenohumeral joint. The humeral head is high riding with respect to the adjacent glenoid a nd there are osseous free bodies identified throughout the glenohumeral joint the biceps tendon is no t visualized and is likely torn. CONCLUSION: 1. Extensive rotator cuff tear involving the supraspinatus, infraspinatus and subscapularis tendon. The humeral head demonstrates significant degenerative changes and is high riding with respect to the adjacent glenoid. There are multiple calcified loose bodies identified within the joint. 2. Fatty infiltration of the rotator cuff with sparing of the teres minor. 3. The labrum appears completely absent. Electronically signed by: Sury Murray MD 05/13/2018 12:54 PM EST
[2018-05-13] MEDS: Enoxaparin Inj 40 MG/0.4 ML Syringe SQ SCH (15:01)
--- NOTE | 2018-05-13 16:06 | ECG ---
Date Performed: 05/12/2018 Time Performed: 17:39:53 PTAGE: 78 years EKG: Within normal limits PREVIOUS TRACING : 09/05/2017 11.22 Since the previous tracing, no significant change not ed DOCTOR: Deandre Mosley Interpretating Date/Time 05/13/2018 16:06:21
[2018-05-13 17:11] LABS: Thyroid Stimulating Hormone 2.51 uIU/mL (0.358-3.740)
[2018-05-13] MEDS: Acetaminophen 325 MG Tablet PO PRN (21:14)
[2018-05-14] MEDS: Levothyroxine 100 MCG Tablet PO SCH (06:14)
[2018-05-14] MEDS: Insulin NovoLOG Aspart Correctional Sugar Inj SQ SCH ×4 (08:35→19:59)
[2018-05-14] MEDS: Ketorolac Inj 30 MG/ML (IVP) Vial IV.PUSH PRN ×2 (08:38→15:54)
--- NOTE | 2018-05-14 09:25 | P.PN ---
Subjective Interval history: Follow-up UTI. Complains of neuropathy involving the toes. She is diabetic. She also has chronic lower back pain. Aware she has a right rotator cuff tear orthopedic surgery recommends outpatient follow-up Physical Exam Vital signs: Vital Signs 05/13/18 16:00 05/13/18 19:58 05/13/18 23:37 Temperature 98.5 F 98 F Pulse Rate 71 70 71 Respiratory Rate 18 18 Blood Pressure 136/87 136/71 133/68 Pulse Oximetry 99 96 95 05/14/18 03:02 05/14/18 08:00 Temperature 97.4 F L 98.2 F Pulse Rate 63 67 Respiratory Rate 18 16 Blood Pressure 134/63 162/94 H Pulse Oximetry 94 L 95 Intake & Output 05/13/18 05/14/18 05/14/18 18:59 06:59 18:59 Intake Total 1850 / 1850 Output Total 1000 / 1000 Balance 1850 / 1850 -1000 / -1000 Intake: IV 1100 / 1100 NS Inj 1,000 ML @ 100 mls/hr IV 1000 / 1000 .CONT .Q10H ROS Rx#:[id number] Rocephin Inj 1,000 MG In NS Inj 100 / 100 100 ML @ 200 mls/hr IV.SIG Q24H ROS Rx#:[id number] Oral 750 / 750 Output: Urine 1000 / 1000 Other: # Voids 2 Date of Last Bowel Movement 05/13/18 05/13/18 Narrative: GENERAL: Well developed, well nourished white female in nad SKIN: Warm and dry. CARDIOVASCULAR: Regular rate and rhythm. RESPIRATORY: No accessory muscle use. Clear to auscultation. Breath sounds equal bilaterally. GASTROINTESTINAL: Abdomen soft, non-tender, nondistended. Normoactive bowel sounds MUSCULOSKELETAL: Extremities without clubbing, cyanosis, trace edema, tenderness on palpation the right shoulder and right elbow with limited range of motion due to the pain. NVI NEUROLOGICAL: Awake and alert. No obvious cranial nerve deficits. Motor strength 4.5 out of 5 bilateral lower extremities. Left upper extremities 5 out of 5, right upper extremities limited range of motion due to pain. Results - Labs CBC & Chem 7: 05/13/18 06:30 05/14/18 12:50 Laboratory Results - last 24 hr 05/12/18 05/13/18 05/13/18 14:15 06:30 09:52 POC Glucose 123 H Vitamin B12 436 TSH 2.510 Urine Color Yellow Urine Clarity Hazy H Urine pH 5.0 Ur Specific [place] 1.011 Urine Protein Negative Urine Glucose (UA) Negative Urine Ketones Negative Urine Occult Blood Negative Urine Nitrate Positive H Urine Bilirubin Negative Urine Urobilinogen Less than 2 Ur Leukocyte Esterase Trace H Urine RBC Less than 1 Urine WBC 8 H Ur Squamous Epith Cells <1 Urine Bacteria Few H Urine Mucus Few H Micro UA Comment Cath-culture ind Urine Culture Comments Cath-cult indicated 05/13/18 05/13/18 05/13/18 13:07 17:16 20:54 POC Glucose 176 H 120 H 128 H Vitamin B12 TSH Urine Color Urine Clarity Urine pH Ur Specific [place] Urine Protein Urine Glucose (UA) Urine Ketones Urine Occult Blood Urine Nitrate Urine Bilirubin Urine Urobilinogen Ur Leukocyte Esterase Urine RBC Urine WBC Ur Squamous Epith Cells Urine Bacteria Urine Mucus Micro UA Comment Urine Culture Comments 05/14/18 08:33 POC Glucose 143 H Vitamin B12 TSH Urine Color Urine Clarity Urine pH Ur Specific [place] Urine Protein Urine Glucose (UA) Urine Ketones Urine Occult Blood Urine Nitrate Urine Bilirubin Urine Urobilinogen Ur Leukocyte Esterase Urine RBC Urine WBC Ur Squamous Epith Cells Urine Bacteria Urine Mucus Micro UA Comment Urine Culture Comments Microbiology 05/12/18 14:15 Catheterized Urine Urine Culture - Preliminary gram negative rods 05/13/18 13:24 Nasal Wash Influenza Types A,B Antigen - Final Negative for FLU A and B antigen Infection due to influenza A or B cannot be ruled out since the antigen present in the sample may be below the detection limit of the test. - Imaging Impressions Shoulder MRI 05/13/18 00:00 CONCLUSION: 1. Extensive rotator cuff tear involving the supraspinatus, infraspinatus and subscapularis tendon. The humeral head demonstrates significant degenerative changes and is high riding with respect to the adjacent glenoid. There are multiple calcified loose bodies identified within the joint. 2. Fatty infiltration of the rotator cuff with sparing of the teres minor. 3. The labrum appears completely absent. - Procedures none Assessment and Plan - Plan 78-year-old white female presents emergency room due to generalized weakness with inability to ambulate Recurrent fall with generalized weakness with inability to ambulate may be associated to her urinary tract infection. Consideration for further evaluation and workup should weakness not improve with treatment. Consulted physical and occupational therapy. PT recommends inpatient rehab. Consult lining caser if patient qualifies for inpatient status Citrobacter urinary tract infection- Rocephin has been initiated, switch to p.o. Ceftin for a total of 7 days Status post fall with right shoulder painx-ray negative, Continue pain control PT and occupational therapy. MRI shows severe rotator cuff tear, discussed with orthopedic surgery outpatient follow-up. History of hypertension, chronic essentialresume home lisinopril and HCTZ and metoprolol. Monitor with as needed clonidine and IV Vasotec History of hyperlipidemiaresume statin Diabetes mellitus type 2resume metformin and continue to monitor blood sugar with sliding scale insulin. Neuropathy likely related to diabetes. Obtain B12, folate and RPR. If worse consider tramadol and Neurontin Hypothyroidism resume levothyroxine DVT prophylaxisLovenox. Discharge Planning: Needs rehab per PT
[2018-05-14] MEDS: Pantoprazole Sodium 20 MG DR Tablet PO SCH (10:27)
[2018-05-14] MEDS: Lisinopril 20 MG Tablet PO SCH (10:27)
[2018-05-14] MEDS: Metoprolol Tartrate 50 MG Tablet PO SCH ×2 (10:27→19:59)
[2018-05-14] MEDS: Senna/Docusate Sodium 8.6/50 MG Tablet PO SCH ×2 (10:29→19:59)
--- NOTE | 2018-05-14 12:41 | XR ---
EXAM DATE: 05/14/2018 12:38 PM EST AGE/SEX: 78 years / Female INDICATIONS: Left sided chest pain. CLINICAL DATA: This is the patient's initial encounter. Patient reports that signs and symptoms have been present for 1 day and indicates a pain score of 5/10. MEDICAL/SURGICAL HISTORY: None. None. COMPARISON: [facility] [place]ST 1V SINGLE AP, 05/12/2018. . FINDINGS: There is persistent mild bibasilar infiltrate. No evidence of effusion. Cardiac contours are stable a nd satisfactory. Severe arthritic change in the spine and right shoulder CONCLUSION: Stable chest appearance Electronically signed by: Wesley Tobin MD 05/14/2018 12:40 PM EST
[2018-05-14 13:35] LABS: Anion Gap 7 meq/L (5-15); Blood Urea Nitrogen 7 mg/dL (7-18); Calcium 8.5 mg/dL (8.5-10.1); Carbon Dioxide 29.8 meq/L (21.0-32.0); Chloride 107 meq/L (98-107); Glomerular Filtration Rate Greater Than 89 mL/min (>89); Glucose,Random 151 mg/dL (74-106); Magnesium 1.7 mg/dL (1.5-2.5); Potassium 3.2 meq/L (3.5-5.1); Sodium 144 meq/L (136-145)
[2018-05-14 13:41] LABS: Creatine Kinase 55 U/L (26-192)
[2018-05-14] MEDS ORDERED: Potassium Bicarbonate 25 MEQ Effervescent Tablet PO ONE ×2 (15:14→17:45)
[2018-05-14] MEDS: Enoxaparin Inj 40 MG/0.4 ML Syringe SQ SCH (15:54)
[2018-05-14 19:52] LABS: Creatine Kinase 50 U/L (26-192)
[2018-05-15 00:59] LABS: Creatine Kinase 41 U/L (26-192)
[2018-05-15] MEDS: Acetaminophen 325 MG Tablet PO PRN (02:34)
[2018-05-15 04:54] LABS: Anion Gap 9 meq/L (5-15); Blood Urea Nitrogen 12 mg/dL (7-18); Calcium 8.3 mg/dL (8.5-10.1); Carbon Dioxide 27.2 meq/L (21.0-32.0); Chloride 108 meq/L (98-107); Glomerular Filtration Rate Greater Than 89 mL/min (>89); Glucose,Random 134 mg/dL (74-106); Magnesium 1.4 mg/dL (1.5-2.5); Potassium 3.5 meq/L (3.5-5.1); Sodium 144 meq/L (136-145)
[2018-05-15] MEDS: Levothyroxine 100 MCG Tablet PO SCH (06:32)
[2018-05-15] MEDS: Pantoprazole Sodium 20 MG DR Tablet PO SCH (09:28)
[2018-05-15] MEDS: Magnesium Oxide 400 MG Tablet PO SCH ×2 (09:28→21:25)
[2018-05-15] MEDS: Metoprolol Tartrate 50 MG Tablet PO SCH ×2 (09:29→21:25)
[2018-05-15] MEDS: Lisinopril 20 MG Tablet PO SCH ×2 (09:29→21:25)
[2018-05-15] MEDS: Senna/Docusate Sodium 8.6/50 MG Tablet PO SCH ×2 (09:30→21:25)
[2018-05-15] MEDS: Insulin NovoLOG Aspart Correctional Sugar Inj SQ SCH ×4 (09:35→21:25)
[2018-05-15] MEDS ORDERED: Regadenoson Inj 0.4 MG/5 ML Syringe IV.PUSH ONE (11:41)
[2018-05-15] MEDS: Aspirin 325 MG Tablet PO SCH (13:02)
--- NOTE | 2018-05-15 13:21 | P.DCO ---
- Diagnosis (1) Acute UTI Status: Acute (2) Impaired gait and mobility Status: Acute (3) Frequent falls Status: Acute - Physical Therapy Order: Evaluate and treat, Improve ambulation, Strength and gait training - Home Health Nursing Order: Medical education, Medication education-adverse effect, Nursing assessment with vital signs - Case Management Consult Case Management Consult-Home Health: Yes - Certification I have seen patient Lacy Aguilar on 05/15/18. My clinical findings support the need for the requested home health care services because: Deconditioned with increased weakness I certify that my clinical findings support that this patient is homebound because: Unsteady gait/balance
--- NOTE | 2018-05-15 13:33 | P.PN ---
Subjective Interval history: Follow-up chest pain. No recurrence of chest discomfort ruled out for TN for Lexiscan which she initially agreed then declined then finally agreed. Also reports improving right shoulder pain and weakness. She wants to be discharged to [facility] however she remains in observation status discussed with case management and UR. She lives alone. Referred to [facility] Physical Exam Vital signs: Vital Signs 05/14/18 16:00 05/14/18 20:00 05/15/18 00:00 Temperature 98.7 F 97.8 F 98.2 F Pulse Rate 65 59 L 57 L Respiratory Rate 16 20 20 Blood Pressure 157/74 H 138/64 157/78 H Pulse Oximetry 95 94 L 98 05/15/18 04:00 05/15/18 08:00 05/15/18 09:00 Temperature 98.0 F Pulse Rate 55 L 59 L 57 L Respiratory Rate 18 Blood Pressure 165/85 H Pulse Oximetry 95 Intake & Output 05/14/18 05/15/18 05/15/18 18:59 06:59 18:59 Intake Total 1060 / 1060 Output Total 900 / 900 Balance 160 / 160 Weight 101.5 kg Intake: IV 100 / 100 Rocephin Inj 1,000 MG In NS Inj 100 / 100 100 ML @ 200 mls/hr IV.SIG Q24H ROS Rx#:[id number] Oral 960 / 960 Output: Urine 900 / 900 Other: # Incontinent Voids 1 Date of Last Bowel Movement 05/14/18 05/14/18 05/14/18 Narrative: GENERAL: Well developed, well nourished white female in nad SKIN: Warm and dry. Bruise left lateral leg CARDIOVASCULAR: Regular rate and rhythm. RESPIRATORY: No accessory muscle use. Clear to auscultation. Breath sounds equal bilaterally. GASTROINTESTINAL: Abdomen soft, non-tender, nondistended. Normoactive bowel sounds MUSCULOSKELETAL: Extremities without clubbing, cyanosis, trace edema, improving tenderness on palpation the right shoulder and right elbow with improving range of motion due to the pain. Superficial cut right elbow. NVI NEUROLOGICAL: Awake and alert. No obvious cranial nerve deficits. Motor strength 4.5 out of 5 bilateral lower extremities. Left upper extremities 5 out of 5, right upper extremities limited range of motion due to pain. Results - Labs CBC & Chem 7: 05/13/18 06:30 05/15/18 04:10 Laboratory Results - last 24 hr 05/14/18 05/14/18 05/14/18 12:50 17:22 18:28 Sodium 144 Potassium 3.2 L Chloride 107 Carbon Dioxide 29.8 Anion Gap 7 BUN 7 Creatinine 0.61 Estimated GFR Greater than 89 POC Glucose 116 H Random Glucose 151 H Calcium 8.5 Magnesium 1.7 Total Creatine Kinase 55 50 Troponin I Less than 0.02 L Less than 0.02 L 05/14/18 05/15/18 05/15/18 19:35 00:20 04:10 Sodium 144 Potassium 3.5 Chloride 108 H Carbon Dioxide 27.2 Anion Gap 9 BUN 12 Creatinine 0.62 Estimated GFR Greater than 89 POC Glucose 109 Random Glucose 134 H Calcium 8.3 L Magnesium 1.4 L Total Creatine Kinase 41 Troponin I Less than 0.02 L 05/15/18 05/15/18 09:34 13:06 Sodium Potassium Chloride Carbon Dioxide Anion Gap BUN Creatinine Estimated GFR POC Glucose 117 H 114 H Random Glucose Calcium Magnesium Total Creatine Kinase Troponin I Microbiology 05/12/18 14:15 Catheterized Urine Urine Culture - Final Citrobacter species - Imaging ITS Impressions Elbow X-Ray 05/12/18 00:00 CONCLUSION: Negative for fracture or dislocation. Followup in 7-10 days is suggested if symptoms persist. Head CT 05/12/18 12:31 CONCLUSION: 1. No acute intracranial abnormality identified. . Shoulder X-Ray 05/12/18 12:31 CONCLUSION: Advanced degenerative changes in the right shoulder. No acute fracture seen. Lumbar Spine MRI 05/12/18 12:33 CONCLUSION: 1. Small broad-based disc bulges at L1-2, L3-4 and L4-5. There is mild facet arthritis as above. No significant neural foraminal stenosis or spinal stenosis is identified. 2. Incidental left adrenal myelolipoma. 3. Small simple cysts within the kidneys bilaterally. Shoulder MRI 05/13/18 00:00 CONCLUSION: 1. Extensive rotator cuff tear involving the supraspinatus, infraspinatus and subscapularis tendon. The humeral head demonstrates significant degenerative changes and is high riding with respect to the adjacent glenoid. There are multiple calcified loose bodies identified within the joint. 2. Fatty infiltration of the rotator cuff with sparing of the teres minor. 3. The labrum appears completely absent. Chest X-Ray 05/14/18 00:00 CONCLUSION: Stable chest appearance - Procedures none Assessment and Plan - Assessment (1) Acute UTI Code(s): N39.0 - Urinary tract infection, site not specified Status: Acute (2) Impaired gait and mobility Code(s): R26.89 - Other abnormalities of gait and mobility Status: Acute (3) Frequent falls Code(s): R29.6 - Repeated falls Status: Acute - Plan 78-year-old white female presents emergency room due to generalized weakness with inability to ambulate Recurrent fall with generalized weakness with inability to ambulate may be associated to her urinary tract infection. Consideration for further evaluation and workup should weakness not improve with treatment. Consulted physical and occupational therapy. PT recommends inpatient rehab. Patient does not meet criteria for inpatient status Citrobacter urinary tract infection- Rocephin has been initiated, switch to p.o. Ceftin for a total of 7 days Status post fall with right shoulder pain and weakpersistent. Continue pain control PT and occupational therapy. MRI shows severe rotator cuff tear, discussed with orthopedic surgery outpatient follow-up. History of hypertension, chronic essentialresume home lisinopril and HCTZ and metoprolol. Monitor with as needed clonidine and IV Vasotec. Suboptimal control will add lisinopril 20 mg at bedtime History of hyperlipidemiaresume statin Diabetes mellitus type 2resume metformin and continue to monitor blood sugar with sliding scale insulin. Neuropathy likely related to diabetes. Unremarkable B12 and folate. If worse consider tramadol and Neurontin Hypothyroidism resume levothyroxine A typical chest pain. Ruled out for TN. EKG with no acute ST elevation. Continue aspirin, beta-kyle and sublingual nitroglycerin. For Lexiscan today , if negative patient can be discharged to [place] or [facility] when cleared by PT. DVT prophylaxisLovenox. Discharge Planning: [facility] when accepted or [facility] with home care when cleared by PT
--- NOTE | 2018-05-15 14:17 | NM ---
EXAM DATE: 05/15/2018 1:01 PM EST AGE/SEX: 78 years / Female INDICATIONS:Angina. Coronary artery disease Chest pain with dyspnea. CLINICAL DATA: This is the patient's initial encounter. Patient reports that signs and symptoms have been present for 1 day and indicates a pain score of 4/10. MEDICAL/SURGICAL HISTORY: Diabetes mellitus type I. Hypertension. . Knee. COMPARISON: No prior exams available for comparison. DOSE: 10 mCi Tc 99m Myoview at rest 30 mCi [id number] at stress 0.4 mg Lexiscan STRESS SYMPTOMS: Dyspnea. EJECTION FRACTION: >70 % TECHNIQUE: The patient underwent pharmacologic stress with infusion of prescribed dose. Continuous ECG tracing was monitored during stress. Gated SPECT imaging was performed after stress and conventi onal SPECT imaging was performed at rest. The examination was performed on a SPECT/CT scanner, both attenuation and non-corrected datasets were reviewed. FINDINGS: Distribution: The maximum perfused segment at stress is in the inferior wall. Perfusion Study: The pattern of perfusion at stress is within normal limits. Gated Study: There are intact wall motion and wall thickening without hypokinetic or dyskinetic segm ents. The ejection fraction is calculated at >70%. RISK CATEGORY: Low (<1% Annual Motality Rate) CONCLUSION: 1. Negative examination. 2. No evidence of stress-induced or fixed perfusion abnormalities. 3. Well-preserved wall motion and ejection fraction. Electronically signed by: David Pride MD 05/15/2018 2:16 PM EST
[2018-05-15] MEDS: Enoxaparin Inj 40 MG/0.4 ML Syringe SQ SCH (15:37)
--- NOTE | 2018-05-15 17:58 | ECG ---
Date Performed: 05/14/2018 Time Performed: 18:46:19 PTAGE: 78 years EKG: SINUS BRADYCARDIA BORDERLINE ECG PREVIOUS TRACING : 05/14/2018 12.14 Since the previous tracing, no significant change noted DOCTOR: Damon Solares Interpretating Date/Time 05/15/2018 17:56:58
--- NOTE | 2018-05-15 22:37 | ECG ---
Date Performed: 05/14/2018 Time Performed: 12:14:04 PTAGE: 78 years EKG: Sinus rhythm NORMAL ECG Since the PREVIOUS TRACING , no significant change noted DOCTOR: Damon Solares Interpretating Date/Time 05/15/2018 22:37:12
[2018-05-16] MEDS: Levothyroxine 100 MCG Tablet PO SCH (05:36)
[2018-05-16 08:07] LABS: Anion Gap 10 meq/L (5-15); Blood Urea Nitrogen 10 mg/dL (7-18); Calcium 8.5 mg/dL (8.5-10.1); Carbon Dioxide 27.8 meq/L (21.0-32.0); Chloride 105 meq/L (98-107); Glomerular Filtration Rate Greater Than 89 mL/min (>89); Glucose,Random 112 mg/dL (74-106); Magnesium 1.6 mg/dL (1.5-2.5); Potassium 3.4 meq/L (3.5-5.1); Sodium 143 meq/L (136-145)
[2018-05-16] MEDS: Insulin NovoLOG Aspart Correctional Sugar Inj SQ SCH ×3 (08:52→18:42)
[2018-05-16] MEDS: Aspirin 325 MG Tablet PO SCH (08:53)
[2018-05-16] MEDS: Metoprolol Tartrate 50 MG Tablet PO SCH (08:54)
[2018-05-16] MEDS: Magnesium Oxide 400 MG Tablet PO SCH (08:54)
[2018-05-16] MEDS: Pantoprazole Sodium 20 MG DR Tablet PO SCH (08:54)
[2018-05-16] MEDS: Lisinopril 20 MG Tablet PO SCH (08:54)
[2018-05-16] MEDS: Senna/Docusate Sodium 8.6/50 MG Tablet PO SCH (08:55)
--- NOTE | 2018-05-16 11:24 | P.DS ---
DS: Providers Date of admission: 05/12/18 15:32 Primary care physician: Davey Chavez MD Consults: 05/15/18 15:14 HUB Only Consult Order Routine Consulting Provider: Ralph Burton Brief History from admission: 78-year-old white female with a history of hyperlipidemia, hypothyroidism, hypertension, diabetes mellitus type 2 who lives alone with base functional capacity and ambulating with assistance of a walker. She noted yesterday that her bilateral legs gave out on her and became extremely weak and fell over to the right side. This morning she had difficulty transferring herself and ambulating with assistance of a walker and therefore came in for evaluation. She denies any chest pain nor any shortness of breath or cough. She has had chills but no fever. She has had good appetite with no nausea or vomiting. No abdominal pain or diarrhea. She denies any headaches or visual changes or difficulty with speech or swallow. She denies any associated numbness. DS: Diagnosis Discharge Diagnosis (1) Acute UTI: Status: Acute (2) Impaired gait and mobility: Status: Acute (3) Frequent falls: Status: Acute DS: Summary ISSUES ADDRESSED DURING THIS HOSPITALIZATION: 1.Recurrent fall with generalized weakness with inability to ambulate may be associated to her urinary tract infection.Consulted physical and occupational therapy. PT recommends inpatient rehab. Patient does not meet criteria for inpatient status Citrobacter urinary tract infection--was initially on IV Rocephin,now has been switched to p.o. Ceftin for a total of 7 days. 2.Status post fall with right shoulder pain and weakpersistent. MRI shows severe rotator cuff tear, discussed with orthopedic surgery outpatient follow- up.Continue pain control PT and occupational therapy. 3.History of hypertension, chronic essential on Lisinopril, HCTZ and metoprolol. 4.A typical chest pain. Ruled out for MO with a negative Lexiscan. EKG with no acute ST elevation. Continued aspirin, beta-kyle and sublingual nitroglycerin. 5.Diabetes mellitus type 2continued metformin, blood glucose remained within acceptable limits. Neuropathy likely related to diabetes. Unremarkable B12 and folate. If worse consider tramadol and Neurontin Hypothyroidism-continued usual dose of levothyroxine History of hyperlipidemiaon statin DVT prophylaxisLovenox. Time Spent with Patient Total time spent providing and/or coordinating discharge services: Quality: VTE Deep Vein Thrombosis/Pulmonary Embolism Present on Admission: No Exam Narrative Exam Narrative: GENERAL:elderly lady in fair general condition, not in distress. HEENT: not pale,anicteric NECK-no JVD CVS- s1s2 heard, no murmurs or rubs. CHEST-CTAB ABDOMEN-soft,non tender, no organomegaly. bowel sounds normoactive. MSK- extremities without edema. Limited ROM in rt shoulder(abduction limited) Results Procedures completed during hospitalization: none Labs on day of discharge: Labs from last 24 hours 05/16/18 05/16/18 05/15/18 08:51 06:20 21:38 Sodium 143 Potassium 3.4 L Chloride 105 Carbon Dioxide 27.8 Anion Gap 10 BUN 10 Creatinine 0.57 Estimated GFR Greater than 89 POC Glucose 112 H 123 H Random Glucose 112 H Calcium 8.5 Magnesium 1.6 05/15/18 05/15/18 17:45 13:06 Sodium Potassium Chloride Carbon Dioxide Anion Gap BUN Creatinine Estimated GFR POC Glucose 99 114 H Random Glucose Calcium Magnesium Impressions ITS Impressions Elbow X-Ray 05/12/18 00:00 CONCLUSION: Negative for fracture or dislocation. Followup in 7-10 days is suggested if symptoms persist. Head CT 05/12/18 12:31 CONCLUSION: 1. No acute intracranial abnormality identified. . Shoulder X-Ray 05/12/18 12:31 CONCLUSION: Advanced degenerative changes in the right shoulder. No acute fracture seen. Lumbar Spine MRI 05/12/18 12:33 CONCLUSION: 1. Small broad-based disc bulges at L1-2, L3-4 and L4-5. There is mild facet arthritis as above. No significant neural foraminal stenosis or spinal stenosis is identified. 2. Incidental left adrenal myelolipoma. 3. Small simple cysts within the kidneys bilaterally. Shoulder MRI 05/13/18 00:00 CONCLUSION: 1. Extensive rotator cuff tear involving the supraspinatus, infraspinatus and subscapularis tendon. The humeral head demonstrates significant degenerative changes and is high riding with respect to the adjacent glenoid. There are multiple calcified loose bodies identified within the joint. 2. Fatty infiltration of the rotator cuff with sparing of the teres minor. 3. The labrum appears completely absent. Chest X-Ray 05/14/18 00:00 CONCLUSION: Stable chest appearance Myocardial Perfusion Scan Nuc Med 05/15/18 00:00 CONCLUSION: 1. Negative examination. 2. No evidence of stress-induced or fixed perfusion abnormalities. 3. Well-preserved wall motion and ejection fraction. Discharge Plan Discharge Disposition Patient Disposition: 04 [facility] Discharge Condition Condition: Stable Discharge Order Discharge Orders: Discharge Order (Routine); Ordered 05/15/18 Ordered By: Robert Alfaro Discharge Details Discharge Comment: dc to [facility] if cleared by physical therapy Physicians Team ED Provider: Angelito Abdullahi ED Midlevel Provider: Elke Washington Primary Care Provider: Davey Chavez Attending Provider: Saravanan Romero Other Providers: [facility] Rxs /Orders / Referrals /Forms Prescriptions: New cefuroxime axetil 500 mg Tablet 500 mg PO Q12HR Qty: 10 RF: 0 lisinopril 20 mg Tablet 20 mg PO HS Qty: 30 RF: 0 Continue metformin 500 mg Tablet 500 mg PO BID RF: 0 atorvastatin 10 mg Tablet 10 mg PO DAILY RF: 0 lisinopril-hydrochlorothiazide 20-12.5 mg Tablet 1 tab PO DAILY RF: 0 levothyroxine 100 mcg Tablet 100 mcg PO DAILY RF: 0 omeprazole 20 mg Capsule,Delayed Release(Dr/Ec) 20 mg PO DAILY RF: 0 metoprolol tartrate 25 mg Tablet 50 mg PO BID RF: 0 Referrals: Huber Alston MD [Physician] - See Instructions (1-2 week rotator cuff tear) Davey Chavez MD [Primary Care Provider] - See Instructions (1wk) Post Discharge Care Plan Care Plan Goals: Your Health Problems: Goals to Promote Your Health: * To prevent worsening of your condition * To maintain your health at the optimal level Directions to Meet Your Goals: * Take your medications as prescribed * Follow your dietary instruction * Follow activity as directed * Keep your appointments as scheduled * Take your immunizations and boosters as scheduled * If your symptoms worsen call your PCP * If no PCP go to Urgent Care or Emergency Room Smoking is dangerous to your health. Avoid second hand smoke. You may reach the 24-hour crisis hotline for domestic abuse at . Status ED Status: Left Department
[2018-05-16 11:30] VITALS: BP 131/67; PULSE 68; RESP 18; TEMP 98.3; O2SAT 96
[2018-05-16] MEDS: Enoxaparin Inj 40 MG/0.4 ML Syringe SQ SCH (16:57)
== END 2018-05-16 19:10 ==
LOC: NEPE 12:10 → NEDA 12:10 → NEPFCDU 16:54
PROVIDERS: ADMIT Hospitalist; ATTEND Hospitalist
DX: E78.5 Hyperlipidemia, unspecified; I10 Essential (primary) hypertension; G89.29 Other chronic pain; K21.9 Gastro-esophageal reflux disease without esophagitis; E66.3 Overweight; N39.0 Urinary tract infection, site not specified; R29.6 Repeated falls; N28.1 Cyst of kidney, acquired; M46.96 Unspecified inflammatory spondylopathy, lumbar region; E11.40 Type 2 diabetes mellitus with diabetic neuropathy, unspecified; B96.89 Other specified bacterial agents as the cause of diseases classified elsewhere; M62.82 Rhabdomyolysis; E03.9 Hypothyroidism, unspecified; I25.119 Atherosclerotic heart disease of native coronary artery with unspecified angina pectoris; M75.101 Unspecified rotator cuff tear or rupture of right shoulder, not specified as traumatic; W19.XXXA Unspecified fall, initial encounter